=== PATIENT | male | born 1955 | race American Indian/Alaskan Native ===

== ENCOUNTER 2016-09-24 08:34 | Emergency (ER) | payer MEDICAID ==
[2016-09-24 08:57] VITALS: BP 172/98
[2016-09-24] MEDS ORDERED: Albuterol 0.083% 2.5 MG/3 ML Neb Soln NEB ONE ×2 (09:38→10:46)
--- NOTE | 2016-09-24 09:40 | EDM.PDOC ---
ED HISTORY OF PRESENT ILLNESS - General Chief Complaint: Respiratory Problem Stated Complaint: BAD CHEST COLD Time Seen by Provider: 09/24/16 09:05 Source: Reports: Patient History Limitations: Reports: No limitations - History of Present Illness INITIAL COMMENTS - FREE TEXT/NARRATIVE: pt arrived stating he has not been able to rest at nite. He is coughing markedly. He feels like he has a very tight cough. Timing/Duration: Reports: Day(s):, Getting worse Severity: moderate Location, General: Reports: chest, other (Pt has known copd. ) Associated Symptoms: Reports: chest pain, cough, shortness of breath - Related Data Allergies/ADRs: Allergies Allergy/AdvReac Type Severity Reaction Status Date / Time No Known Allergies Allergy Verified 09/24/16 09:02 Home Meds: Home Meds Albuterol [Ventolin HFA] 1 - 2 puff INH ASDIRECTED PRN 09/23/14 [History] Insulin Aspart [NovoLOG] 20 unit SQ TID 09/23/14 [History] Insulin Detemir [Levemir] 60 units SQ BID 09/23/14 [History] Sertraline HCl [Zoloft] 300 mg PO DAILY 09/23/14 [History] Tiotropium [Spiriva HandiHaler] 1 tab INH DAILY 09/23/14 [History] Aspirin [Low Dose Aspirin EC] 81 mg PO DAILY 01/11/15 [History] Clopidogrel [Plavix] 75 mg PO DAILY 01/11/15 [History] Fenofibrate Nanocrystallized [Tricor] 96 mg PO DAILY 01/11/15 [History] LORazepam [Ativan] 1 mg PO TID 01/11/15 [History] Lisinopril 5 mg PO DAILY 01/11/15 [History] Metoprolol Tartrate 50 mg PO BID 01/11/15 [History] QUEtiapine [SEROquel] 100 mg PO BEDTIME 01/11/15 [History] atorvaSTATin [Lipitor] 80 mg PO BEDTIME 01/11/15 [History] Sucralfate [Carafate] 1 g PO QID #120 tablet 06/27/15 [Rx] Omeprazole 40 mg PO BID 12/21/15 [History] amLODIPine [Norvasc] 5 mg PO DAILY 12/21/15 [History] Furosemide [Furosemide] 20 mg PO DAILY 04/24/16 [History] Nitroglycerin [Nitrostat] 0.4 mg PO ASDIRECTED PRN 04/24/16 [History] Ondansetron [Zofran ODT] 8 mg PO ASDIRECTED PRN 04/24/16 [History] Tamsulosin [Flomax] 0.4 mg PO DAILY 04/24/16 [History] Dulaglutide [Trulicity] 0.75 mg SQ WEEKLY 06/12/16 [History] ARIPiprazole [Abilify] 1 tab PO DAILY 08/10/16 [History] Cyclobenzaprine [Flexeril] 10 mg PO TID PRN 08/10/16 [History] Ergocalciferol (Vitamin D2) [Vitamin D2] 50,000 units PO ASDIRECTED 08/10/16 [ History] Trolamine Salicylate/Aloe Vera [Aspercreme 10%] 1 applic TOP ASDIRECTED PRN [History] Past Medical History Cardiovascular History: Reports: CAD, High cholesterol, Hypertension, [place], Other (see below) Other Cardiovascular History: stents placed Respiratory History: Reports: COPD, Pneumonia, recurrent, Other (see below) Other Respiratory History: emphysema, sob with exertion Gastrointestinal History: Reports: Chronic diarrhea, PUD Genitourinary History: Reports: Prostate disorder Other Genitourinary History: prostate cancer Musculoskeletal History: Reports: Back pain, chronic, Osteoarthritis Neurological History: Reports: Other (see below) Other Neuro History: [place] palsy Psychiatric History: Reports: Anxiety, Depression Endocrine/Metabolic History: Reports: Diabetes, type II, IDDM, Obesity/BMI 30+ Oncologic (Cancer) History: Reports: Prostate - Infectious Disease History Infectious Disease History: Reports: Chicken pox Other Infectious Disease History: unknown to patient - Past Surgical History Cardiovascular Surgical History: Reports: Coronary artery stent GI Surgical History: Reports: Cholecystectomy, Colonoscopy, EGD Oncologic Surgical History: Reports: Other (see below) Other Oncologic Surgeries/Procedures: radiated prostate cancer, states it was gone, but now back Social & Family History - Family History Cardiac: Reports: High cholesterol, Hypertension, Other (see below) Other Cardiac Family History: Heart Disease Respiratory: Reports: COPD Neurological: Reports: CVA Psychiatric: Reports: Depression Endocrine/Metabolic: Reports: Diabetes, type II Oncologic: Reports: Pancreatic, Renal - Tobacco Use Smoking Status *Q: Former Smoker Years of Tobacco use: 48 Used Tobacco, but Quit: Yes Month Tobacco Last Used: 1 year ago Second Hand Smoke Exposure: No - Caffeine Use Caffeine Use: Reports: Coffee - Alcohol Use Days Per Week of Alcohol Use: 0 - Recreational Drug Use Recreational Drug Use: No ED ROS GENERAL - Review of Systems Review Of Systems: See Below Constitutional: Reports: fever, diaphoresis, other (pt is sweaty when he gets up in the am. ) HEENT: Reports: No symptoms Respiratory: Reports: shortness of breath, wheezing, cough Cardiovascular: Reports: No symptoms Endocrine: Reports: no symptoms GI/Abdominal: Reports: No symptoms : Reports: no symptoms ED EXAM, GENERAL - Physical Exam Exam: See Below Free Text/Narrative:: Pt arrived with a marked cough and he feels sob and wheezy. Exam Limited By: No limitations General Appearance: alert, mild distress Ears: normal TMs Nose: normal inspection Throat/Mouth: Normal inspection Head: atraumatic Respiratory/Chest: decreased breath sounds, wheezing Cardiovascular: regular rate, rhythm GI/Abdominal: soft, non tender Rectal (Males) Exam: Deferred Back Exam: normal inspection Extremities: normal inspection Neurological: alert, oriented, normal cognition Psychiatric: anxious Course - Vital Signs Last Recorded V/S: Last Vital Signs Temp 36.7 C 09/24/16 09:01 Pulse 90 09/24/16 09:01 Resp 30 H 09/24/16 09:01 BP 172/98 H 09/24/16 09:01 Pulse Ox 95 09/24/16 09:01 - Orders/Labs/Meds Orders: Active Orders 24 hr Category Date Time Status RT Aerosol Therapy [RC] ASDIRECTED Care 09/24/16 09:39 Active RT Aerosol Therapy [RC] ASDIRECTED Care 09/24/16 10:46 Ordered Albuterol [Proventil Neb Soln] Med 09/24/16 10:46 Once 2.5 mg NEB ONETIME ONE Labs: Laboratory Tests 09/24/16 09/24/16 09/24/16 Range/Units 09:39 09:42 09:42 WBC 13.2 H (4.5-11.0) K/uL RBC 5.20 (4.30-5.90) M/uL Hgb 13.7 (12.0-15.0) g/dL Hct 42.4 (40.0-54.0) % MCV 82 (80-98) fL MCH 26 L (27-31) pg MCHC 32 (32-36) % Plt Count 315 (150-400) K/uL Neut % (Auto) 66 (36-66) % Lymph % (Auto) 24 (24-44) % [place] % (Auto) 5 (2-6) % Eos % (Auto) 5 H (2-4) % Baso % (Auto) 1 (0-1) % Puncture Site Rt radial ABG pH 7.394 (7.350-7.450) ABG pCO2 38.4 (35.0-42.0) mmHg ABG pO2 71.0 L (75.0-100.0) mmHg ABG HCO3 22.9 (22.0-26.0) mmol/L ABG Total CO2 20.3 L (23.0-27.0) mmol/L ABG O2 Saturation 93.1 L (95.0-98.0) % ABG O2 Content 17.9 (15.0-23.0) %vol ABG Base Excess -1.1 mm/L ABG Hemoglobin 13.8 (13.5-18.0) g/dL ABG Oxyhemoglobin 91.8 % ABG Carboxyhemoglobin 0.6 (0.0-1.6) % ABG Methemoglobin 0.8 % Raghu Test Passed O2 Delivery Device Room air Oxygen Flow Rate 0 L Sodium 137 L (140-148) mmol/L Potassium 4.9 (3.6-5.2) mmol/L Chloride 103 (100-108) mmol/L Carbon Dioxide 27 (21-32) mmol/L Anion Gap 11.9 (5.0-14.0) mmol/L BUN 19 H (7-18) mg/dL Creatinine 1.4 H (0.8-1.3) mg/dL Est Cr Clr Drug Dosing 56.49 mL/min Estimated GFR (MDRD) 51 L (>60) Glucose 218 H (74-106) mg/dL Calcium 8.7 (8.5-10.1) mg/dL Total Bilirubin 0.3 (0.2-1.0) mg/dL AST 23 (15-37) U/L ALT 23 (12-78) U/L Alkaline Phosphatase 68 (46-116) U/L Lxt-F-Fpdnsagkcox Pept (5-125) pg/mL Total Protein 8.5 H (6.4-8.2) g/dL Albumin 4.2 (3.4-5.0) g/dL Globulin 4.3 H (2.3-3.5) g/dL Albumin/Globulin Ratio 1.0 L (1.2-2.2) Urine Color Urine Appearance Urine pH (4.5-8.0) Ur Specific [place] (1.008-1.030) Urine Protein (NEGATIVE) mg/dL Urine Glucose (UA) (NEGATIVE) mg/dL Urine Ketones (NEGATIVE) mg/dL Urine Occult Blood (NEGATIVE) Urine Nitrite (NEGAITVE) Urine Bilirubin (NEGATIVE) Urine Urobilinogen (NORMAL) mg/dL Ur Leukocyte Esterase (NEGATIVE) Urine RBC (0-5) Urine WBC (0-5) Ur Epithelial Cells Amorphous Sediment Urine Bacteria Urine Mucus 09/24/16 09/24/16 Range/Units 09:42 09:56 WBC (4.5-11.0) K/uL RBC (4.30-5.90) M/uL Hgb (12.0-15.0) g/dL Hct (40.0-54.0) % MCV (80-98) fL MCH (27-31) pg MCHC (32-36) % Plt Count (150-400) K/uL Neut % (Auto) (36-66) % Lymph % (Auto) (24-44) % Rosebud % (Auto) (2-6) % Eos % (Auto) (2-4) % Baso % (Auto) (0-1) % Puncture Site ABG pH (7.350-7.450) ABG pCO2 (35.0-42.0) mmHg ABG pO2 (75.0-100.0) mmHg ABG HCO3 (22.0-26.0) mmol/L ABG Total CO2 (23.0-27.0) mmol/L ABG O2 Saturation (95.0-98.0) % ABG O2 Content (15.0-23.0) %vol ABG Base Excess mm/L ABG Hemoglobin (13.5-18.0) g/dL ABG Oxyhemoglobin % ABG Carboxyhemoglobin (0.0-1.6) % ABG Methemoglobin % Raghu Test O2 Delivery Device Oxygen Flow Rate L Sodium (140-148) mmol/L Potassium (3.6-5.2) mmol/L Chloride (100-108) mmol/L Carbon Dioxide (21-32) mmol/L Anion Gap (5.0-14.0) mmol/L BUN (7-18) mg/dL Creatinine (0.8-1.3) mg/dL Est Cr Clr Drug Dosing mL/min Estimated GFR (MDRD) (>60) Glucose (74-106) mg/dL Calcium (8.5-10.1) mg/dL Total Bilirubin (0.2-1.0) mg/dL AST (15-37) U/L ALT (12-78) U/L Alkaline Phosphatase (46-116) U/L [id number] Pept 61 (5-125) pg/mL Total Protein (6.4-8.2) g/dL Albumin (3.4-5.0) g/dL Globulin (2.3-3.5) g/dL Albumin/Globulin Ratio (1.2-2.2) Urine Color Yellow Urine Appearance Clear Urine pH 7.0 (4.5-8.0) Ur Specific [place] 1.010 (1.008-1.030) Urine Protein Negative (NEGATIVE) mg/dL Urine Glucose (UA) 100 H (NEGATIVE) mg/dL Urine Ketones Negative (NEGATIVE) mg/dL Urine Occult Blood Negative (NEGATIVE) Urine Nitrite Negative (NEGAITVE) Urine Bilirubin Negative (NEGATIVE) Urine Urobilinogen Normal (NORMAL) mg/dL Ur Leukocyte Esterase Negative (NEGATIVE) Urine RBC 0-5 (0-5) Urine WBC 0-5 (0-5) Ur Epithelial Cells Not seen Amorphous Sediment Rare Urine Bacteria Not seen Urine Mucus Not seen Meds: Medications Discontinued Medications Generic Name Dose Route Start Last Admin Trade Name Freq PRN Reason Stop Dose Admin Albuterol 2.5 mg 09/24/16 09:38 09/24/16 10:28 Proventil Neb Soln NEB 09/24/16 09:39 2.5 mg ONETIME ONE Administration - Re-Assessments/Exams Free Text/Narrative Re-Assessment/Exam: 09/24/16 10:52 chest xray does not show a infiltrate. His wbc is mildly elevated. Departure - Departure Time of Disposition: 10:52 Disposition: Home, Self-Care 01 Condition: fair Clinical Impression: Bronchitis, COPD exacerbation, Prostate CA Forms: ED Department Discharge Care Plan Goals: keep appt at [facility], albuterol inhaler with a short maxillofacial prosthetics dentist 2 puffs qid, push fluids, zithromax, robitussin ac 2 tsp at bedtime for eest and to suppress the cough. - My Orders Last 24 Hours: My Active Orders 09/24/16 09:39 RT Aerosol Therapy [RC] ASDIRECTED 09/24/16 10:46 RT Aerosol Therapy [RC] ASDIRECTED Albuterol [Proventil Neb Soln] 2.5 mg NEB ONETIME ONE - Assessment/Plan Last 24 Hours: My Active Orders 09/24/16 09:39 RT Aerosol Therapy [RC] ASDIRECTED 09/24/16 10:46 RT Aerosol Therapy [RC] ASDIRECTED Albuterol [Proventil Neb Soln] 2.5 mg NEB ONETIME ONE
--- NOTE | 2016-09-24 10:12 | CR ---
Two-view chest Comparison: November 2011. Findings: The heart and vascular structures are stable in appearance. There are no infiltrates or ef fusions. There are chronic degenerative findings throughout the thoracic spine. Impression: 1. Stable exam. No acute findings.
== END 2016-09-24 11:46 | disposition home or self-care (01) ==
LOC: JP.ED 08:34
DX: J40 Bronchitis, not specified as acute or chronic (principal); J44.1 Chronic obstructive pulmonary disease with (acute) exacerbation; E11.9 Type 2 diabetes mellitus without complications; I11.9 Hypertensive heart disease without heart failure; Z79.84 Long term (current) use of oral hypoglycemic drugs; Z79.82 Long term (current) use of aspirin; Z79.899 Other long term (current) drug therapy
CPT/HCPCS: 36415; 36600; 71020; 71020-26; 80053; 81001; 82803; 83880; 85025; 99284

== ENCOUNTER 2016-10-20 17:33 | Emergency (ER) | payer MEDICAID ==
[2016-10-20 18:01] VITALS: BP 110/45
--- NOTE | 2016-10-20 18:32 | EDM.PDOC ---
ED HPI NEURO - General Chief Complaint: Neurological Problem Stated Complaint: eval Time Seen by Provider: 10/20/16 18:05 Source: Reports: Patient History Limitations: Reports: No limitations - History of Present Illness INITIAL COMMENTS - FREE TEXT/NARRATIVE: History of present illness: [This 61-year-old male was brought in by law enforcement after he was observed to be driving erratically. He has a history of diabetes and so the thought perhaps his blood sugar was low. He has not been drinking. He states that the reason he drives erratically is because he has a car that is very sensitive stearing. He is scheduled for a sleep study here [facility] at 8 PM and he is anxious to get ready for that. He does not feel that he has any reason to be in the emergency room but he does cooperate with law enforcement and coming over. Denies any chest pain denies any significant shortness of breath denies any sleepiness at this time. He denies ever falling asleep while driving. He has inhalers that he uses and has used today. He also uses insulin and used it this morning. He may not keep anything this evening and if he doesn't he will not be using any insulin. His blood sugar on arrival was 192] Review of systems: As per history of present illness and below otherwise all systems reviewed and negative. Past medical history: As per history of present illness and as reviewed below otherwise noncontributory. Surgical history: As per history of present illness and as reviewed below otherwise noncontributory. Social history: No reported history of drug or alcohol abuse. Family history: As per history of present illness and as reviewed below otherwise noncontributory. Physical exam: HEENT: Atraumatic, normocephalic, pupils reactive, negative for conjunctival pallor or scleral icterus, mucous membranes moist, throat clear, neck supple, nontender, trachea midline. Lungs: Clear to auscultation, breath sounds equal bilaterally, Heart: S1S2, regular, negative for clicks, rubs, or JVD. Abdomen: Soft, nondistended, nontender. Negative for masses or hepatosplenomegaly. Negative for costovertebral tenderness. Pelvis: Stable nontender. Genitourinary: Deferred. Rectal: Deferred. Extremities: Atraumatic, negative for cords or calf pain. Neurovascular unremarkable. Neuro: Awake, alert, oriented. Cranial nerves II through XII unremarkable. Cerebellum unremarkable. Motor and sensory unremarkable throughout. Exam nonfocal. Diagnostics: [] Therapeutics: [] Impression: [Erratic driving with apparently no organic reason for it at this time] Plan: [He is discharged and will get ready for a sleep study.] Definitive disposition and diagnosis as appropriate pending reevaluation and review of above. - Related Data Allergies/ADRs: Allergies Allergy/AdvReac Type Severity Reaction Status Date / Time No Known Allergies Allergy Verified 10/20/16 17:46 Home Meds: Home Meds Albuterol [Ventolin HFA] 1 - 2 puff INH ASDIRECTED PRN 09/23/14 [History] Insulin Aspart [NovoLOG] 20 unit SQ TID 09/23/14 [History] Insulin Detemir [Levemir] 60 units SQ BID 09/23/14 [History] Sertraline HCl [Zoloft] 300 mg PO DAILY 09/23/14 [History] Tiotropium [Spiriva HandiHaler] 1 tab INH DAILY 09/23/14 [History] Aspirin [Low Dose Aspirin EC] 81 mg PO DAILY 01/11/15 [History] Clopidogrel [Plavix] 75 mg PO DAILY 01/11/15 [History] Fenofibrate Nanocrystallized [Tricor] 96 mg PO DAILY 01/11/15 [History] LORazepam [Ativan] 1 mg PO TID 01/11/15 [History] Lisinopril 5 mg PO DAILY 01/11/15 [History] Metoprolol Tartrate 50 mg PO BID 01/11/15 [History] QUEtiapine [SEROquel] 100 mg PO BEDTIME 01/11/15 [History] atorvaSTATin [Lipitor] 80 mg PO BEDTIME 01/11/15 [History] Sucralfate [Carafate] 1 g PO QID #120 tablet 06/27/15 [Rx] Omeprazole 40 mg PO BID 12/21/15 [History] amLODIPine [Norvasc] 5 mg PO DAILY 12/21/15 [History] Furosemide [Furosemide] 20 mg PO DAILY 04/24/16 [History] Nitroglycerin [Nitrostat] 0.4 mg PO ASDIRECTED PRN 04/24/16 [History] Ondansetron [Zofran ODT] 8 mg PO ASDIRECTED PRN 04/24/16 [History] Tamsulosin [Flomax] 0.4 mg PO DAILY 04/24/16 [History] Dulaglutide [Trulicity] 0.75 mg SQ WEEKLY 06/12/16 [History] ARIPiprazole [Abilify] 1 tab PO DAILY 08/10/16 [History] Cyclobenzaprine [Flexeril] 10 mg PO TID PRN 08/10/16 [History] Ergocalciferol (Vitamin D2) [Vitamin D2] 50,000 units PO ASDIRECTED 08/10/16 [ History] Trolamine Salicylate/Aloe Vera [Aspercreme 10%] 1 applic TOP ASDIRECTED PRN [History] Past Medical History Cardiovascular History: Reports: CAD, High cholesterol, Hypertension, [place], Other (see below) Other Cardiovascular History: stents placed Respiratory History: Reports: COPD, Pneumonia, recurrent, Other (see below) Other Respiratory History: emphysema, sob with exertion Gastrointestinal History: Reports: Chronic diarrhea, PUD Genitourinary History: Reports: Prostate disorder Other Genitourinary History: prostate cancer Musculoskeletal History: Reports: Back pain, chronic, Osteoarthritis Neurological History: Reports: Other (see below) Other Neuro History: [place] palsy Psychiatric History: Reports: Anxiety, Depression Endocrine/Metabolic History: Reports: Diabetes, type II, IDDM, Obesity/BMI 30+ Oncologic (Cancer) History: Reports: Prostate - Infectious Disease History Infectious Disease History: Reports: Chicken pox Other Infectious Disease History: unknown to patient - Past Surgical History Cardiovascular Surgical History: Reports: Coronary artery stent GI Surgical History: Reports: Cholecystectomy, Colonoscopy, EGD Oncologic Surgical History: Reports: Other (see below) Other Oncologic Surgeries/Procedures: radiated prostate cancer, states it was gone, but now back Social & Family History - Family History Cardiac: Reports: High cholesterol, Hypertension, Other (see below) Other Cardiac Family History: Heart Disease Respiratory: Reports: COPD Neurological: Reports: CVA Psychiatric: Reports: Depression Endocrine/Metabolic: Reports: Diabetes, type II Oncologic: Reports: Pancreatic, Renal - Tobacco Use Smoking Status *Q: Never Smoker Years of Tobacco use: 48 Used Tobacco, but Quit: Yes Month Tobacco Last Used: 1 year ago Second Hand Smoke Exposure: No - Caffeine Use Caffeine Use: Reports: Coffee - Alcohol Use Days Per Week of Alcohol Use: 0 - Recreational Drug Use Recreational Drug Use: No ED ROS GENERAL - Review of Systems Review Of Systems: ROS reveals no pertinent complaints other than HPI. 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 I hope things go well for you with your sleep study. - My Orders Last 24 Hours: My Active Orders 10/20/16 18:03 Blood Glucose Check, Bedside [RC] ONETIME - Assessment/Plan Last 24 Hours: My Active Orders 10/20/16 18:03 Blood Glucose Check, Bedside [RC] ONETIME
== END 2016-10-20 20:09 | disposition home or self-care (01) ==
LOC: JP.ED 17:33
DX: Z02.89 Encounter for other administrative examinations (principal); I25.2 Old myocardial infarction; I25.10 Atherosclerotic heart disease of native coronary artery without angina pectoris; I10 Essential (primary) hypertension; E78.00 Pure hypercholesterolemia, unspecified; J44.9 Chronic obstructive pulmonary disease, unspecified; F41.9 Anxiety disorder, unspecified; F32.9 Major depressive disorder, single episode, unspecified; E11.9 Type 2 diabetes mellitus without complications; E66.9 Obesity, unspecified; Z68.41 Body mass index [BMI] 40.0-44.9, adult; Z95.5 Presence of coronary angioplasty implant and graft; Z90.49 Acquired absence of other specified parts of digestive tract; Z98.890 Other specified postprocedural states; Z85.46 Personal history of malignant neoplasm of prostate; Z79.02 Long term (current) use of antithrombotics/antiplatelets; Z79.82 Long term (current) use of aspirin; Z79.4 Long term (current) use of insulin; Z79.899 Other long term (current) drug therapy
CPT/HCPCS: 99284

== ENCOUNTER 2016-11-09 03:43 | Emergency (ER) | payer MEDICAID ==
--- NOTE | 2016-11-09 04:16 | EDM.PDOC ---
ED HPI Behavioral Health - General Chief Complaint: Neurological Problem Stated Complaint: [facility] Time Seen by Provider: 11/09/16 04:14 Source: Reports: Patient, EMS Exam Limitations: Reports: No limitations - History of Present Illness INITIAL COMMENTS - FREE TEXT/NARRATIVE: ems was called because the pt was acting strange and not able to follow directions. The pt would answer questions with the ambulance but he would loose his thought pattern. Onset of Symptoms: Reports: gradual Duration of Symptoms: Reports: Hour(s):, Other (t seemed much worse tonight. ) Associated Symptoms: Reports: anxiety, agitation, decreased concentration - Related Data Allergies Allergy/AdvReac Type Severity Reaction Status Date / Time No Known Allergies Allergy Verified 10/20/16 17:46 Home Medications: Home Meds Albuterol [Ventolin HFA] 1 - 2 puff INH ASDIRECTED PRN 09/23/14 [History] Insulin Aspart [NovoLOG] 20 unit SQ TID 09/23/14 [History] Insulin Detemir [Levemir] 60 units SQ BID 09/23/14 [History] Sertraline HCl [Zoloft] 300 mg PO DAILY 09/23/14 [History] Tiotropium [Spiriva HandiHaler] 1 tab INH DAILY 09/23/14 [History] Aspirin [Low Dose Aspirin EC] 81 mg PO DAILY 01/11/15 [History] Clopidogrel [Plavix] 75 mg PO DAILY 01/11/15 [History] Fenofibrate Nanocrystallized [Tricor] 96 mg PO DAILY 01/11/15 [History] LORazepam [Ativan] 1 mg PO TID PRN 01/11/15 [History] Lisinopril 5 mg PO DAILY 01/11/15 [History] Metoprolol Tartrate 50 mg PO BID 01/11/15 [History] QUEtiapine [SEROquel] 100 mg PO TID PRN 01/11/15 [History] atorvaSTATin [Lipitor] 80 mg PO BEDTIME 01/11/15 [History] Sucralfate [Carafate] 1 g PO QID #120 tablet 06/27/15 [Rx] amLODIPine [Norvasc] 5 mg PO DAILY 12/21/15 [History] Furosemide [Furosemide] 20 mg PO DAILY 04/24/16 [History] Nitroglycerin [Nitrostat] 0.4 mg PO ASDIRECTED PRN 04/24/16 [History] Ondansetron [Zofran ODT] 8 mg PO ASDIRECTED PRN 04/24/16 [History] Tamsulosin [Flomax] 0.4 mg PO DAILY 04/24/16 [History] Dulaglutide [Trulicity] 0.75 mg SQ WEEKLY 06/12/16 [History] Cyclobenzaprine [Flexeril] 10 mg PO TID PRN 08/10/16 [History] Ergocalciferol (Vitamin D2) [Vitamin D2] 50,000 units PO ASDIRECTED 08/10/16 [ History] Trolamine Salicylate/Aloe Vera [Aspercreme 10%] 1 applic TOP ASDIRECTED PRN [History] ARIPiprazole [Abilify] 5 mg PO DAILY 11/09/16 [History] Diclofenac Potassium [Cataflam] 50 mg PO ONETIME PRN 11/09/16 [History] Pantoprazole [ProTONIX] 40 mg PO ACBREAKFAST 11/09/16 [History] guaiFENesin [Guaifenesin] 400 mg PO Q8HR PRN 11/09/16 [History] Past Medical History HEENT History: Reports: Hard of hearing Cardiovascular History: Reports: CAD, High cholesterol, Hypertension, [place], Other (see below) Other Cardiovascular History: stents placed Respiratory History: Reports: COPD, Pneumonia, recurrent, Other (see below) Other Respiratory History: emphysema, sob with exertion Gastrointestinal History: Reports: Chronic diarrhea, PUD Genitourinary History: Reports: Prostate disorder Other Genitourinary History: prostate cancer Musculoskeletal History: Reports: Back pain, chronic, Osteoarthritis Neurological History: Reports: Other (see below) Other Neuro History: [place] palsy Psychiatric History: Reports: Anxiety, Depression Endocrine/Metabolic History: Reports: Diabetes, type II, IDDM, Obesity/BMI 30+ Oncologic (Cancer) History: Reports: Prostate - Infectious Disease History Infectious Disease History: Reports: Chicken pox, Measles Other Infectious Disease History: unknown to patient - Past Surgical History Cardiovascular Surgical History: Reports: Coronary artery stent GI Surgical History: Reports: Appendectomy, Cholecystectomy, Colonoscopy, EGD Oncologic Surgical History: Reports: Other (see below) Other Oncologic Surgeries/Procedures: radiated prostate cancer, states it was gone, but now back Social & Family History - Family History Family Medical History: Unobtainable Cardiac: Reports: High cholesterol, Hypertension, Other (see below) Other Cardiac Family History: Heart Disease Respiratory: Reports: COPD Neurological: Reports: CVA Psychiatric: Reports: Depression Endocrine/Metabolic: Reports: Diabetes, type II Oncologic: Reports: Pancreatic, Renal - Tobacco Use Smoking Status *Q: Never Smoker Years of Tobacco use: 48 Used Tobacco, but Quit: Yes Month Tobacco Last Used: 1 year ago Second Hand Smoke Exposure: No - Caffeine Use Caffeine Use: Reports: Coffee - Alcohol Use Days Per Week of Alcohol Use: 0 - Recreational Drug Use Recreational Drug Use: No ED ROS GENERAL - Review of Systems Review Of Systems: See Below Constitutional: Reports: no symptoms HEENT: Reports: No symptoms Respiratory: Reports: Shortness of Breath Cardiovascular: Reports: No symptoms Endocrine: Reports: no symptoms GI/Abdominal: Reports: No symptoms : Reports: no symptoms Musculoskeletal: Reports: no symptoms ED EXAM, BEHAVIORAL HEALTH - Physical Exam Exam: See Below Text/Narrative:: Pt was brought from home because of erradic behavior. He seemed confused at times. He has a istory of prostate Ca. He does not describe any specfic pain. He seemed quite agitated. He denies using anything other than his regular meds. Exam Limited By: Altered mental status General Appearance: alert, other ( confused at times. ) Ears: normal TMs Nose: normal inspection Throat/Mouth: Normal inspection Head: atraumatic Neck: normal inspection Respiratory/Chest: no respiratory distress Cardiovascular: regular rate, rhythm GI/Abdominal: soft, non tender (Male) Exam: Other (pt has a history of prostate ca. ) Rectal (Males) Exam: Deferred Back Exam: normal inspection Extremities: normal inspection Neurological: alert, other (Pt does know where he is but then he starts talking to himself and he is not making any sense.) Psychiatric: restless, agitated, inattentive COURSE, BEHAVIORAL HEALTH COMP - Course Vital Signs: Last Vital Signs Temp 37.4 C 11/09/16 03:51 Pulse 84 11/09/16 04:05 Resp 14 11/09/16 04:05 BP 116/95 H 11/09/16 04:05 Pulse Ox 98 11/09/16 04:05 Orders, Labs, Meds: Active Orders 24 hr Category Date Time Status Head wo Cont [CT] Stat Exams 11/09/16 03:50 Taken Sodium Chloride 0.9% [Normal Saline] 1,000 ml Med 11/09/16 05:30 Active IV ASDIRECTED Medication Orders Sodium Chloride (Normal Saline) 1,000 mls @ 400 mls/hr IV ASDIRECTED ELI Last Admin: 11/09/16 05:35 Dose: 400 mls/hr Laboratory Tests 11/09/16 11/09/16 11/09/16 Range/Units 04:01 04:01 04:01 WBC 13.1 H (4.5-11.0) K/uL RBC 5.15 (4.30-5.90) M/uL Hgb 13.6 (12.0-15.0) g/dL Hct 41.3 (40.0-54.0) % MCV 80 (80-98) fL MCH 26 L (27-31) pg MCHC 33 (32-36) % Plt Count 287 (150-400) K/uL Neut % (Auto) 63 (36-66) % Lymph % (Auto) 26 (24-44) % [place] % (Auto) 6 (2-6) % Eos % (Auto) 5 H (2-4) % Baso % (Auto) 1 (0-1) % ESR (0-20) mm/hr Puncture Site ABG pH (7.350-7.450) ABG pCO2 (35.0-42.0) mmHg ABG pO2 (75.0-100.0) mmHg ABG HCO3 (22.0-26.0) mmol/L ABG Total CO2 (23.0-27.0) mmol/L ABG O2 Saturation (95.0-98.0) % ABG O2 Content (15.0-23.0) %vol ABG Base Excess mm/L ABG Hemoglobin (13.5-18.0) g/dL ABG Oxyhemoglobin % ABG Carboxyhemoglobin (0.0-1.6) % ABG Methemoglobin % Raghu Test O2 Delivery Device Sodium 140 (140-148) mmol/L Potassium 4.5 (3.6-5.2) mmol/L Chloride 104 (100-108) mmol/L Carbon Dioxide 27 (21-32) mmol/L Anion Gap 8.7 (5.0-14.0) mmol/L BUN 21 H (7-18) mg/dL Creatinine 1.4 H (0.8-1.3) mg/dL Est Cr Clr Drug Dosing 56.63 mL/min Estimated GFR (MDRD) 51 L (>60) Glucose 237 H (74-106) mg/dL Calcium 8.8 (8.5-10.1) mg/dL Total Bilirubin 0.2 (0.2-1.0) mg/dL AST 23 (15-37) U/L ALT 30 (12-78) U/L Alkaline Phosphatase 114 (46-116) U/L Total Protein 8.0 (6.4-8.2) g/dL Albumin 4.0 (3.4-5.0) g/dL Globulin 4.0 H (2.3-3.5) g/dL Albumin/Globulin Ratio 1.0 L (1.2-2.2) PSA Screen (0.0-4.0) ug/L Urine Color Urine Appearance Urine pH (4.5-8.0) Ur Specific [place] (1.008-1.030) Urine Protein (NEGATIVE) mg/dL Urine Glucose (UA) (NEGATIVE) mg/dL Urine Ketones (NEGATIVE) mg/dL Urine Occult Blood (NEGATIVE) Urine Nitrite (NEGAITVE) Urine Bilirubin (NEGATIVE) Urine Urobilinogen (NORMAL) mg/dL Ur Leukocyte Esterase (NEGATIVE) Urine RBC (0-5) Urine WBC (0-5) Ur Epithelial Cells Amorphous Sediment Urine Bacteria Urine Mucus Urine Opiates Screen (NEGATIVE) Ur Oxycodone Screen (NEGATIVE) Urine Methadone Screen (NEGATIVE) Ur Propoxyphene Screen (NEGATIVE) Ur Barbiturates Screen (NEGATIVE) Ur Tricyclics Screen (NEGATIVE) Ur Phencyclidine Scrn (NEGATIVE) Ur Amphetamine Screen (NEGATIVE) U Methamphetamines Scrn (NEGATIVE) Urine MDMA Screen (NEGATIVE) U Benzodiazepines Scrn (NEGATIVE) U Cocaine Metab Screen (NEGATIVE) U Marijuana (THC) Screen (NEGATIVE) Ethyl Alcohol < 3 mg/dL 11/09/16 11/09/16 11/09/16 Range/Units 04:03 04:05 04:06 WBC (4.5-11.0) K/uL RBC (4.30-5.90) M/uL Hgb (12.0-15.0) g/dL Hct (40.0-54.0) % MCV (80-98) fL MCH (27-31) pg MCHC (32-36) % Plt Count (150-400) K/uL Neut % (Auto) (36-66) % Lymph % (Auto) (24-44) % [place] % (Auto) (2-6) % Eos % (Auto) (2-4) % Baso % (Auto) (0-1) % ESR 18 (0-20) mm/hr Puncture Site Lt radial ABG pH 7.437 (7.350-7.450) ABG pCO2 33.8 L (35.0-42.0) mmHg ABG pO2 82.1 (75.0-100.0) mmHg ABG HCO3 22.4 (22.0-26.0) mmol/L ABG Total CO2 19.8 L (23.0-27.0) mmol/L ABG O2 Saturation 96.0 (95.0-98.0) % ABG O2 Content 17.8 (15.0-23.0) %vol ABG Base Excess -0.7 mm/L ABG Hemoglobin 13.4 L (13.5-18.0) g/dL ABG Oxyhemoglobin 94.3 % ABG Carboxyhemoglobin 0.9 (0.0-1.6) % ABG Methemoglobin 0.9 % Raghu Test Passed O2 Delivery Device Room air Sodium (140-148) mmol/L Potassium (3.6-5.2) mmol/L Chloride (100-108) mmol/L Carbon Dioxide (21-32) mmol/L Anion Gap (5.0-14.0) mmol/L BUN (7-18) mg/dL Creatinine (0.8-1.3) mg/dL Est Cr Clr Drug Dosing mL/min Estimated GFR (MDRD) (>60) Glucose (74-106) mg/dL Calcium (8.5-10.1) mg/dL Total Bilirubin (0.2-1.0) mg/dL AST (15-37) U/L ALT (12-78) U/L Alkaline Phosphatase (46-116) U/L Total Protein (6.4-8.2) g/dL Albumin (3.4-5.0) g/dL Globulin (2.3-3.5) g/dL Albumin/Globulin Ratio (1.2-2.2) PSA Screen 9.0 H (0.0-4.0) ug/L Urine Color Urine Appearance Urine pH (4.5-8.0) Ur Specific [place] (1.008-1.030) Urine Protein (NEGATIVE) mg/dL Urine Glucose (UA) (NEGATIVE) mg/dL Urine Ketones (NEGATIVE) mg/dL Urine Occult Blood (NEGATIVE) Urine Nitrite (NEGAITVE) Urine Bilirubin (NEGATIVE) Urine Urobilinogen (NORMAL) mg/dL Ur Leukocyte Esterase (NEGATIVE) Urine RBC (0-5) Urine WBC (0-5) Ur Epithelial Cells Amorphous Sediment Urine Bacteria Urine Mucus Urine Opiates Screen (NEGATIVE) Ur Oxycodone Screen (NEGATIVE) Urine Methadone Screen (NEGATIVE) Ur Propoxyphene Screen (NEGATIVE) Ur Barbiturates Screen (NEGATIVE) Ur Tricyclics Screen (NEGATIVE) Ur Phencyclidine Scrn (NEGATIVE) Ur Amphetamine Screen (NEGATIVE) U Methamphetamines Scrn (NEGATIVE) Urine MDMA Screen (NEGATIVE) U Benzodiazepines Scrn (NEGATIVE) U Cocaine Metab Screen (NEGATIVE) U Marijuana (THC) Screen (NEGATIVE) Ethyl Alcohol mg/dL 11/09/16 11/09/16 Range/Units 04:50 05:27 WBC (4.5-11.0) K/uL RBC (4.30-5.90) M/uL Hgb (12.0-15.0) g/dL Hct (40.0-54.0) % MCV (80-98) fL MCH (27-31) pg MCHC (32-36) % Plt Count (150-400) K/uL Neut % (Auto) (36-66) % Lymph % (Auto) (24-44) % [place] % (Auto) (2-6) % Eos % (Auto) (2-4) % Baso % (Auto) (0-1) % ESR (0-20) mm/hr Puncture Site ABG pH (7.350-7.450) ABG pCO2 (35.0-42.0) mmHg ABG pO2 (75.0-100.0) mmHg ABG HCO3 (22.0-26.0) mmol/L ABG Total CO2 (23.0-27.0) mmol/L ABG O2 Saturation (95.0-98.0) % ABG O2 Content (15.0-23.0) %vol ABG Base Excess mm/L ABG Hemoglobin (13.5-18.0) g/dL ABG Oxyhemoglobin % ABG Carboxyhemoglobin (0.0-1.6) % ABG Methemoglobin % Raghu Test O2 Delivery Device Sodium (140-148) mmol/L Potassium (3.6-5.2) mmol/L Chloride (100-108) mmol/L Carbon Dioxide (21-32) mmol/L Anion Gap (5.0-14.0) mmol/L BUN (7-18) mg/dL Creatinine (0.8-1.3) mg/dL Est Cr Clr Drug Dosing mL/min Estimated GFR (MDRD) (>60) Glucose (74-106) mg/dL Calcium (8.5-10.1) mg/dL Total Bilirubin (0.2-1.0) mg/dL AST (15-37) U/L ALT (12-78) U/L Alkaline Phosphatase (46-116) U/L Total Protein (6.4-8.2) g/dL Albumin (3.4-5.0) g/dL Globulin (2.3-3.5) g/dL Albumin/Globulin Ratio (1.2-2.2) PSA Screen (0.0-4.0) ug/L Urine Color Yellow Urine Appearance Slightly cloudy Urine pH 5.0 (4.5-8.0) Ur Specific [place] 1.020 (1.008-1.030) Urine Protein Negative (NEGATIVE) mg/dL Urine Glucose (UA) 50 H (NEGATIVE) mg/dL Urine Ketones Negative (NEGATIVE) mg/dL Urine Occult Blood Negative (NEGATIVE) Urine Nitrite Negative (NEGAITVE) Urine Bilirubin Negative (NEGATIVE) Urine Urobilinogen Normal (NORMAL) mg/dL Ur Leukocyte Esterase Negative (NEGATIVE) Urine RBC 0-5 (0-5) Urine WBC 0-5 (0-5) Ur Epithelial Cells Not seen Amorphous Sediment Not seen Urine Bacteria Not seen Urine Mucus Not seen Urine Opiates Screen Negative (NEGATIVE) Ur Oxycodone Screen Negative (NEGATIVE) Urine Methadone Screen Negative (NEGATIVE) Ur Propoxyphene Screen Negative (NEGATIVE) Ur Barbiturates Screen Negative (NEGATIVE) Ur Tricyclics Screen Negative (NEGATIVE) Ur Phencyclidine Scrn Negative (NEGATIVE) Ur Amphetamine Screen Negative (NEGATIVE) U Methamphetamines Scrn Negative (NEGATIVE) Urine MDMA Screen Negative (NEGATIVE) U Benzodiazepines Scrn Negative (NEGATIVE) U Cocaine Metab Screen Negative (NEGATIVE) U Marijuana (THC) Screen Negative (NEGATIVE) Ethyl Alcohol mg/dL Medications Generic Name Dose Route Start Last Admin Trade Name Freq PRN Reason Stop Dose Admin Sodium Chloride 1,000 mls @ 400 mls/hr 11/09/16 05:30 11/09/16 05:35 Normal Saline IV 400 mls/hr ASDIRECTED ELI Administration Departure - Departure Time of Disposition: 07:22 Disposition: Home, Self-Care 01 Condition: fair Clinical Impression: Confusion, hx of, without neuro findings, Prostate CA, Diabetes mellitus Forms: ED Department Discharge Care Plan Goals: to the clinic he first of the week to see Vasquez Rodriguez to review meds because of the episodes of comnfusion. - My Orders Last 24 Hours: My Active Orders 11/09/16 03:50 Head wo Cont [CT] Stat 11/09/16 05:30 Sodium Chloride 0.9% [Normal Saline] 1,000 ml IV ASDIRECTED - Assessment/Plan Last 24 Hours: My Active Orders 11/09/16 03:50 Head wo Cont [CT] Stat 11/09/16 05:30 Sodium Chloride 0.9% [Normal Saline] 1,000 ml IV ASDIRECTED
[2016-11-09] MEDS ORDERED: Sodium Chloride 0.9% 1,000 ML IV SCH (05:30)
[2016-11-09 07:23] VITALS: BP 145/77
== END 2016-11-09 09:01 | disposition home or self-care (01) ==
LOC: JP.ED 03:43
DX: R41.0 Disorientation, unspecified (principal); E11.9 Type 2 diabetes mellitus without complications; I25.10 Atherosclerotic heart disease of native coronary artery without angina pectoris; I10 Essential (primary) hypertension; I25.2 Old myocardial infarction; E78.00 Pure hypercholesterolemia, unspecified; F32.9 Major depressive disorder, single episode, unspecified; F41.9 Anxiety disorder, unspecified; J44.9 Chronic obstructive pulmonary disease, unspecified; Z85.46 Personal history of malignant neoplasm of prostate; Z90.49 Acquired absence of other specified parts of digestive tract; Z95.5 Presence of coronary angioplasty implant and graft; Z79.4 Long term (current) use of insulin; Z79.02 Long term (current) use of antithrombotics/antiplatelets; Z79.899 Other long term (current) drug therapy
CPT/HCPCS: 36415; 36600; 70450; 80053; 80305; 81001; 82803; 85025; 85651; 96360; 96361; 99285; G0103; G0480; J7040

== ENCOUNTER 2016-11-28 10:35 | Inpatient (IN) | payer MEDICAID ==
--- NOTE | 2016-11-28 11:06 | EDM.PDOC ---
ED HPI GENERAL MEDICAL PROBLEM - General Chief Complaint: Respiratory Problem Stated Complaint: [facility] Time Seen by Provider: 11/28/16 10:59 Source of Information: Reports: Patient History Limitations: Reports: No Limitations - History of Present Illness INITIAL COMMENTS - FREE TEXT/NARRATIVE: pt arrived feeling sob. he has been in the hosp recently. He has noted this getting worse Onset: gradual Treatments [employer]: Reports: Breathing treatments, EKG, Oxygen Other Treatments [employer]: blood sugar 246 Lower Back Pain Score (Numeric/FACES): 2 - Related Data Allergies Allergy/AdvReac Type Severity Reaction Status Date / Time No Known Allergies Allergy Verified 10/20/16 17:46 Home Meds: Home Meds Albuterol [Ventolin HFA] 1 - 2 puff INH ASDIRECTED PRN 09/23/14 [History] Insulin Aspart [NovoLOG] 20 unit SQ TID 09/23/14 [History] Insulin Detemir [Levemir] 60 units SQ BID 09/23/14 [History] Sertraline HCl [Zoloft] 300 mg PO DAILY 09/23/14 [History] Tiotropium [Spiriva HandiHaler] 1 tab INH DAILY 09/23/14 [History] Aspirin [Low Dose Aspirin EC] 81 mg PO DAILY 01/11/15 [History] Clopidogrel [Plavix] 75 mg PO DAILY 01/11/15 [History] Fenofibrate Nanocrystallized [Tricor] 96 mg PO DAILY 01/11/15 [History] LORazepam [Ativan] 1 mg PO TID PRN 01/11/15 [History] Lisinopril 5 mg PO DAILY 01/11/15 [History] Metoprolol Tartrate 50 mg PO BID 01/11/15 [History] QUEtiapine [SEROquel] 100 mg PO TID PRN 01/11/15 [History] atorvaSTATin [Lipitor] 80 mg PO BEDTIME 01/11/15 [History] Sucralfate [Carafate] 1 g PO QID #120 tablet 06/27/15 [Rx] amLODIPine [Norvasc] 5 mg PO DAILY 12/21/15 [History] Furosemide [Furosemide] 20 mg PO DAILY 04/24/16 [History] Nitroglycerin [Nitrostat] 0.4 mg PO ASDIRECTED PRN 04/24/16 [History] Ondansetron [Zofran ODT] 8 mg PO ASDIRECTED PRN 04/24/16 [History] Tamsulosin [Flomax] 0.4 mg PO DAILY 04/24/16 [History] Dulaglutide [Trulicity] 0.75 mg SQ WEEKLY 06/12/16 [History] Cyclobenzaprine [Flexeril] 10 mg PO TID PRN 08/10/16 [History] Ergocalciferol (Vitamin D2) [Vitamin D2] 50,000 units PO ASDIRECTED 08/10/16 [ History] Trolamine Salicylate/Aloe Vera [Aspercreme 10%] 1 applic TOP ASDIRECTED PRN [History] ARIPiprazole [Abilify] 5 mg PO DAILY 11/09/16 [History] Diclofenac Potassium [Cataflam] 50 mg PO ONETIME PRN 11/09/16 [History] Pantoprazole [ProTONIX] 40 mg PO ACBREAKFAST 11/09/16 [History] guaiFENesin [Guaifenesin] 400 mg PO Q8HR PRN 11/09/16 [History] Past Medical History HEENT History: Reports: Hard of hearing Cardiovascular History: Reports: CAD, High cholesterol, Hypertension, RI, Other (see below) Other Cardiovascular History: stents placed Respiratory History: Reports: COPD, Pneumonia, recurrent, Other (see below) Other Respiratory History: emphysema, sob with exertion Gastrointestinal History: Reports: Chronic diarrhea, PUD Other Gastrointestinal History: Fatty Liver Genitourinary History: Reports: Prostate disorder Other Genitourinary History: prostate cancer Musculoskeletal History: Reports: Back pain, chronic, Osteoarthritis Neurological History: Reports: Other (see below) Other Neuro History: [place] palsy Psychiatric History: Reports: Anxiety, Depression Other Psychiatric History: Grief, Insomnia Endocrine/Metabolic History: Reports: Diabetes, type II, IDDM, Obesity/BMI 30+ Oncologic (Cancer) History: Reports: Prostate - Infectious Disease History Infectious Disease History: Reports: Chicken pox, Measles Other Infectious Disease History: unknown to patient - Past Surgical History GI Surgical History: Reports: Appendectomy, Cholecystectomy, Colonoscopy, EGD Social & Family History - Family History Family Medical History: Unobtainable Cardiac: Reports: High cholesterol, Hypertension, Other (see below) Other Cardiac Family History: Heart Disease Respiratory: Reports: COPD Neurological: Reports: CVA Psychiatric: Reports: Depression Endocrine/Metabolic: Reports: Diabetes, type II Oncologic: Reports: Pancreatic, Renal - Tobacco Use Smoking Status *Q: Never Smoker Years of Tobacco use: 48 Used Tobacco, but Quit: Yes Month Tobacco Last Used: 1 year ago Second Hand Smoke Exposure: No - Caffeine Use Caffeine Use: Reports: Coffee - Alcohol Use Days Per Week of Alcohol Use: 0 - Recreational Drug Use Recreational Drug Use: No ED ROS GENERAL - Review of Systems Review Of Systems: See Below Constitutional: Reports: No Symptoms HEENT: Reports: No Symptoms Respiratory: Reports: Shortness of Breath, Wheezing, Cough Cardiovascular: Reports: No Symptoms Endocrine: Reports: No Symptoms GI/Abdominal: Reports: No Symptoms : Reports: No Symptoms ED EXAM, GENERAL - Physical Exam Exam: See Below Free Text/Narrative:: pt arrived sob and quite wheezy. He had a neb in the ambulance which did help him. He is still sitting in the low 90s. He is not having chest pain. He has had a increased cough recently. He was admitted to [facility] and discharged as a flare of his copd. He was to be on predisone and he is not sure what he has been taking. He did not have his inhalers with him today. He thinks a nebulixer works better for him. Exam Limited By: No Limitations General Appearance: Alert, Mild Distress Ears: Normal TMs Nose: Normal Inspection Throat/Mouth: Normal Inspection Head: Atraumatic Neck: Normal Inspection Respiratory/Chest: Decreased Breath Sounds, Wheezing Cardiovascular: Regular Rate, Rhythm GI/Abdominal: Soft, Non-Tender (Male) Exam: Deferred Rectal (Males) Exam: Deferred Back Exam: Normal Inspection Extremities: Normal Inspection Neurological: Alert, Oriented, Other ( difficult to get a clear history. ) Psychiatric: Normal Affect Course - Vital Signs Last Recorded V/S: Last Vital Signs Temp 37.1 C 11/28/16 10:38 Pulse 79 11/28/16 10:38 Resp 23 H 11/28/16 10:38 BP 168/91 H 11/28/16 10:38 Pulse Ox 94 L 11/28/16 10:38 - Orders/Labs/Meds Orders: Active Orders 24 hr Category Date Time Status RT Aerosol Therapy [RC] ASDIRECTED Care 11/28/16 11:41 Active Sodium Chloride 0.9% [Saline Flush] Med 11/28/16 12:49 Active 10 ml FLUSH ASDIRECTED PRN Saline Lock Insert [OM.PC] Routine Oth 11/28/16 12:49 Ordered Medication Orders Sodium Chloride (Saline Flush) 10 ml FLUSH ASDIRECTED PRN PRN Reason: Keep Vein Open Labs: Laboratory Tests 11/28/16 11/28/16 11/28/16 Range/Units 10:58 11:12 11:12 WBC 13.2 H (4.5-11.0) K/uL RBC 4.92 (4.30-5.90) M/uL Hgb 12.8 (12.0-15.0) g/dL Hct 39.5 L (40.0-54.0) % MCV 80 (80-98) fL MCH 26 L (27-31) pg MCHC 32 (32-36) % Plt Count 210 (150-400) K/uL Add Manual Diff Yes Neutrophils % (Manual) 62 (36-66) % Band Neutrophils % 3 L (5-11) % Lymphocytes % (Manual) 26 (24-44) % Monocytes % (Manual) 6 (2-6) % Eosinophils % (Manual) 3 (2-4) % D-Dimer, Quantitative (0.0-400.0) ng/mL Puncture Site Rt radial ABG pH 7.398 (7.350-7.450) ABG pCO2 39.4 (35.0-42.0) mmHg ABG pO2 90.3 (75.0-100.0) mmHg ABG HCO3 23.8 (22.0-26.0) mmol/L ABG Total CO2 21.3 L (23.0-27.0) mmol/L ABG O2 Saturation 96.7 (95.0-98.0) % ABG O2 Content 17.3 (15.0-23.0) %vol ABG Base Excess -0.3 mm/L ABG Hemoglobin 12.9 L (13.5-18.0) g/dL ABG Oxyhemoglobin 94.6 % ABG Carboxyhemoglobin 1.3 (0.0-1.6) % ABG Methemoglobin 0.9 % Raghu Test Passed O2 Delivery Device Nasal cannula Oxygen Flow Rate 2 L Sodium 142 (140-148) mmol/L Potassium 4.2 (3.6-5.2) mmol/L Chloride 105 (100-108) mmol/L Carbon Dioxide 26 (21-32) mmol/L Anion Gap 11.5 (5.0-14.0) mmol/L BUN 15 (7-18) mg/dL Creatinine 1.0 (0.8-1.3) mg/dL Est Cr Clr Drug Dosing 79.08 mL/min Estimated GFR (MDRD) > 60 (>60) Glucose 185 H (74-106) mg/dL Calcium 8.0 L (8.5-10.1) mg/dL Total Bilirubin 0.5 D (0.2-1.0) mg/dL AST 24 (15-37) U/L ALT 35 (12-78) U/L Alkaline Phosphatase 91 (46-116) U/L Cti-D-Gjgdsrhbwmw Pept (5-125) pg/mL Total Protein 7.3 (6.4-8.2) g/dL Albumin 3.5 (3.4-5.0) g/dL Globulin 3.8 H (2.3-3.5) g/dL Albumin/Globulin Ratio 0.9 L (1.2-2.2) PSA Screen (0.0-4.0) ug/L Urine Color Urine Appearance Urine pH (4.5-8.0) Ur Specific [place] (1.008-1.030) Urine Protein (NEGATIVE) mg/dL Urine Glucose (UA) (NEGATIVE) mg/dL Urine Ketones (NEGATIVE) mg/dL Urine Occult Blood (NEGATIVE) Urine Nitrite (NEGAITVE) Urine Bilirubin (NEGATIVE) Urine Urobilinogen (NORMAL) mg/dL Ur Leukocyte Esterase (NEGATIVE) Urine RBC (0-5) Urine WBC (0-5) Ur Epithelial Cells Amorphous Sediment Urine Bacteria Urine Mucus 11/28/16 11/28/16 11/28/16 Range/Units 11:23 11:23 12:17 WBC (4.5-11.0) K/uL RBC (4.30-5.90) M/uL Hgb (12.0-15.0) g/dL Hct (40.0-54.0) % MCV (80-98) fL MCH (27-31) pg MCHC (32-36) % Plt Count (150-400) K/uL Add Manual Diff Neutrophils % (Manual) (36-66) % Band Neutrophils % (5-11) % Lymphocytes % (Manual) (24-44) % Monocytes % (Manual) (2-6) % Eosinophils % (Manual) (2-4) % D-Dimer, Quantitative 227 (0.0-400.0) ng/mL Puncture Site ABG pH (7.350-7.450) ABG pCO2 (35.0-42.0) mmHg ABG pO2 (75.0-100.0) mmHg ABG HCO3 (22.0-26.0) mmol/L ABG Total CO2 (23.0-27.0) mmol/L ABG O2 Saturation (95.0-98.0) % ABG O2 Content (15.0-23.0) %vol ABG Base Excess mm/L ABG Hemoglobin (13.5-18.0) g/dL ABG Oxyhemoglobin % ABG Carboxyhemoglobin (0.0-1.6) % ABG Methemoglobin % Raghu Test O2 Delivery Device Oxygen Flow Rate L Sodium (140-148) mmol/L Potassium (3.6-5.2) mmol/L Chloride (100-108) mmol/L Carbon Dioxide (21-32) mmol/L Anion Gap (5.0-14.0) mmol/L BUN (7-18) mg/dL Creatinine (0.8-1.3) mg/dL Est Cr Clr Drug Dosing mL/min Estimated GFR (MDRD) (>60) Glucose (74-106) mg/dL Calcium (8.5-10.1) mg/dL Total Bilirubin (0.2-1.0) mg/dL AST (15-37) U/L ALT (12-78) U/L Alkaline Phosphatase (46-116) U/L Esh-L-Ghlogndrbqx Pept 338 H (5-125) pg/mL Total Protein (6.4-8.2) g/dL Albumin (3.4-5.0) g/dL Globulin (2.3-3.5) g/dL Albumin/Globulin Ratio (1.2-2.2) PSA Screen 13.9 H (0.0-4.0) ug/L Urine Color Urine Appearance Urine pH (4.5-8.0) Ur Specific [place] (1.008-1.030) Urine Protein (NEGATIVE) mg/dL Urine Glucose (UA) (NEGATIVE) mg/dL Urine Ketones (NEGATIVE) mg/dL Urine Occult Blood (NEGATIVE) Urine Nitrite (NEGAITVE) Urine Bilirubin (NEGATIVE) Urine Urobilinogen (NORMAL) mg/dL Ur Leukocyte Esterase (NEGATIVE) Urine RBC (0-5) Urine WBC (0-5) Ur Epithelial Cells Amorphous Sediment Urine Bacteria Urine Mucus 11/28/16 Range/Units 12:28 WBC (4.5-11.0) K/uL RBC (4.30-5.90) M/uL Hgb (12.0-15.0) g/dL Hct (40.0-54.0) % MCV (80-98) fL MCH (27-31) pg MCHC (32-36) % Plt Count (150-400) K/uL Add Manual Diff Neutrophils % (Manual) (36-66) % Band Neutrophils % (5-11) % Lymphocytes % (Manual) (24-44) % Monocytes % (Manual) (2-6) % Eosinophils % (Manual) (2-4) % D-Dimer, Quantitative (0.0-400.0) ng/mL Puncture Site ABG pH (7.350-7.450) ABG pCO2 (35.0-42.0) mmHg ABG pO2 (75.0-100.0) mmHg ABG HCO3 (22.0-26.0) mmol/L ABG Total CO2 (23.0-27.0) mmol/L ABG O2 Saturation (95.0-98.0) % ABG O2 Content (15.0-23.0) %vol ABG Base Excess mm/L ABG Hemoglobin (13.5-18.0) g/dL ABG Oxyhemoglobin % ABG Carboxyhemoglobin (0.0-1.6) % ABG Methemoglobin % Raghu Test O2 Delivery Device Oxygen Flow Rate L Sodium (140-148) mmol/L Potassium (3.6-5.2) mmol/L Chloride (100-108) mmol/L Carbon Dioxide (21-32) mmol/L Anion Gap (5.0-14.0) mmol/L BUN (7-18) mg/dL Creatinine (0.8-1.3) mg/dL Est Cr Clr Drug Dosing mL/min Estimated GFR (MDRD) (>60) Glucose (74-106) mg/dL Calcium (8.5-10.1) mg/dL Total Bilirubin (0.2-1.0) mg/dL AST (15-37) U/L ALT (12-78) U/L Alkaline Phosphatase (46-116) U/L Ifp-S-Yngmxeiaofa Pept (5-125) pg/mL Total Protein (6.4-8.2) g/dL Albumin (3.4-5.0) g/dL Globulin (2.3-3.5) g/dL Albumin/Globulin Ratio (1.2-2.2) PSA Screen (0.0-4.0) ug/L Urine Color Yellow Urine Appearance Clear Urine pH 6.0 (4.5-8.0) Ur Specific [place] 1.020 (1.008-1.030) Urine Protein Negative (NEGATIVE) mg/dL Urine Glucose (UA) 100 H (NEGATIVE) mg/dL Urine Ketones Negative (NEGATIVE) mg/dL Urine Occult Blood Negative (NEGATIVE) Urine Nitrite Negative (NEGAITVE) Urine Bilirubin Negative (NEGATIVE) Urine Urobilinogen 1 (NORMAL) mg/dL Ur Leukocyte Esterase Negative (NEGATIVE) Urine RBC Not seen (0-5) Urine WBC Not seen (0-5) Ur Epithelial Cells Not seen Amorphous Sediment Rare Urine Bacteria Not seen Urine Mucus Rare Meds: Medications Generic Name Dose Route Start Last Admin Trade Name Freq PRN Reason Stop Dose Admin Sodium Chloride 10 ml 11/28/16 12:49 Saline Flush FLUSH ASDIRECTED PRN Keep Vein Open Discontinued Medications Generic Name Dose Route Start Last Admin Trade Name Freq PRN Reason Stop Dose Admin Albuterol 2.5 mg 11/28/16 11:41 11/28/16 12:08 Proventil Neb Soln NEB 11/28/16 11:42 2.5 mg ONETIME ONE Administration Insulin Aspart 15 unit 11/28/16 12:48 Novolog SUBCUT 11/28/16 12:49 ONETIME ONE - Re-Assessments/Exams Free Text/Narrative Re-Assessment/Exam: 11/28/16 13:02 Family was called who serves as his KNIFE SETTER ASSEMBLER and they at first refused to bring in his meds. Lateral they said they were looking for them. His patient care coordinatior was called in [place] and she was going to check into this. He needs to have his meds set up and His Maintenance Data Analyst should be checking to see if he is taking his meds. He has many meds and these need to be looked at as to what is necessary. 11/28/16 13:07 His wbc is mildly elevated. His chest xray reveals a patchy pneumonia in the left upper lobe area. Departure - Departure Time of Disposition: 13:08 Disposition: Admitted As Inpatient 65 Condition: fair Clinical Impression: Left upper lobe pneumonia, COPD (chronic obstructive pulmonary disease), Noncompliance with medication regimen - Discharge Information Forms: ED Department Discharge Care Plan Goals: adfmit to Dr ayers. - My Orders Last 24 Hours: My Active Orders 11/28/16 11:41 RT Aerosol Therapy [RC] ASDIRECTED 11/28/16 12:49 Sodium Chloride 0.9% [Saline Flush] 10 ml FLUSH ASDIRECTED PRN Saline Lock Insert [OM.PC] Routine - Assessment/Plan Last 24 Hours: My Active Orders 11/28/16 11:41 RT Aerosol Therapy [RC] ASDIRECTED 11/28/16 12:49 Sodium Chloride 0.9% [Saline Flush] 10 ml FLUSH ASDIRECTED PRN Saline Lock Insert [OM.PC] Routine
[2016-11-28] MEDS ORDERED: Albuterol 0.083% 2.5 MG/3 ML Neb Soln NEB ONE (11:41)
--- NOTE | 2016-11-28 11:58 | CR ---
Chest 1V Frontal INDICATION: sob COMPARISON: 11/21/2011 FINDINGS: Single portable chest. Infiltrate in the left upper lobe is new, may represent pneumonia. Lungs are otherwise clear. Heart size probably within normal limits given AP lordotic projection. No pleural effusions. IMPRESSION: Left upper lobe infiltrate may represent pneumonia. No signs of pulmonary edema.
[2016-11-28] MEDS ORDERED: Insulin Aspart 100 Units/ML 3 ML Pen SUBCUT ONE ×2 (12:48→13:15)
[2016-11-28] MEDS ORDERED: Sodium Chloride 0.9% 10 ML Syringe FLUSH PRN (12:49)
[2016-11-28] MEDS ORDERED: Aluminum Hydroxide/Magnesium Hydroxide/Simethicone Susp 30 ML Cup PO ONE (13:35)
[2016-11-28] MEDS ORDERED: oxyCODONE 5 MG Tab PO PRN (13:56)
[2016-11-28] MEDS ORDERED: Albuterol 0.083% 2.5 MG/3 ML Neb Soln NEB PRN (13:56)
[2016-11-28] MEDS ORDERED: cefTRIAXone 2 GM in Sodium Chloride 0.9% 50 ML IV SCH (14:00)
[2016-11-28] MEDS ORDERED: methylPREDNISolone Sodium Succinate 125 MG/2 ML SDV IVPUSH ONE (14:10)
--- NOTE | 2016-11-28 14:13 | PCM.HP ---
H&P History of Present Illness - General Date of Service: 11/28/16 Admit Problem/Dx: Admission Diagnosis/Problem Admission Diagnosis/Problem Pneumonia Source of Information: Patient, Provider History Limitations: Reports: No Limitations - History of Present Illness Initial Comments - Free Text/Narative: Anderson presents to the emergency room today with shortness of breath and cough. Symptoms have been present for approximately one week and have been getting worse since that time. He was recently admitted to the hospital in [place] with similar symptoms and was treated with prednisone but has not been getting better. He reports some grayish sputum production with his cough. He has a sharp substernal chest pain whenever he coughs. No pain with deep respiration. He short of breath after only minimal exertion or walking a short distance. This is much different than his baseline. He can hear himself wheezing at home from time to time. No obvious fevers or chills that he is aware of. Appetite has been okay but his energy has been decreased. No change in bowel or bladder habits. No lower extremity edema or orthopnea. He says that he's been using his steroids and inhalers at home but has no idea what he is taking or were they might be at his house. No obvious sick contacts or significant travel history. Blood sugars have been up and down but he reports fairly well-controlled for the most part. Workup in the emergency room remarkable for a left upper lobe pneumonia and leukocytosis. He is hypoxic and require supplemental oxygen. He has significant wheezing. He will be admitted for management of pneumonia and a COPD exacerbation. Lower Back Pain Score (Numeric/FACES): 2 - Related Data Allergies/Adverse Reactions: Allergies Allergy/AdvReac Type Severity Reaction Status Date / Time No Known Allergies Allergy Verified 10/20/16 17:46 Home Medications: Home Meds Albuterol [Ventolin HFA] 1 - 2 puff INH ASDIRECTED PRN 09/23/14 [History] Insulin Aspart [NovoLOG] 20 unit SQ TID 09/23/14 [History] Insulin Detemir [Levemir] 60 units SQ BID 09/23/14 [History] Sertraline HCl [Zoloft] 300 mg PO DAILY 09/23/14 [History] Tiotropium [Spiriva HandiHaler] 1 tab INH DAILY 09/23/14 [History] Aspirin [Low Dose Aspirin EC] 81 mg PO DAILY 01/11/15 [History] Clopidogrel [Plavix] 75 mg PO DAILY 01/11/15 [History] Fenofibrate Nanocrystallized [Tricor] 96 mg PO DAILY 01/11/15 [History] LORazepam [Ativan] 1 mg PO TID PRN 01/11/15 [History] Lisinopril 5 mg PO DAILY 01/11/15 [History] Metoprolol Tartrate 50 mg PO BID 01/11/15 [History] QUEtiapine [SEROquel] 100 mg PO TID PRN 01/11/15 [History] atorvaSTATin [Lipitor] 80 mg PO BEDTIME 01/11/15 [History] Sucralfate [Carafate] 1 g PO QID #120 tablet 06/27/15 [Rx] amLODIPine [Norvasc] 5 mg PO DAILY 12/21/15 [History] Furosemide [Furosemide] 20 mg PO DAILY 04/24/16 [History] Nitroglycerin [Nitrostat] 0.4 mg PO ASDIRECTED PRN 04/24/16 [History] Ondansetron [Zofran ODT] 8 mg PO ASDIRECTED PRN 04/24/16 [History] Tamsulosin [Flomax] 0.4 mg PO DAILY 04/24/16 [History] Dulaglutide [Trulicity] 0.75 mg SQ WEEKLY 06/12/16 [History] Cyclobenzaprine [Flexeril] 10 mg PO TID PRN 08/10/16 [History] Ergocalciferol (Vitamin D2) [Vitamin D2] 50,000 units PO ASDIRECTED 08/10/16 [ History] Trolamine Salicylate/Aloe Vera [Aspercreme 10%] 1 applic TOP ASDIRECTED PRN [History] ARIPiprazole [Abilify] 5 mg PO DAILY 11/09/16 [History] Diclofenac Potassium [Cataflam] 50 mg PO ONETIME PRN 11/09/16 [History] Pantoprazole [ProTONIX] 40 mg PO ACBREAKFAST 11/09/16 [History] guaiFENesin [Guaifenesin] 400 mg PO Q8HR PRN 11/09/16 [History] Past Medical History HEENT History: Reports: Hard of hearing Other HEENT History: also C/O neck pain Cardiovascular History: Reports: CAD, High cholesterol, Hypertension, [place], Other (see below) Other Cardiovascular History: stents placed Respiratory History: Reports: COPD, Pneumonia, recurrent, Other (see below) Other Respiratory History: emphysema, sob with exertion Gastrointestinal History: Reports: Chronic diarrhea, PUD Other Gastrointestinal History: Fatty Liver Genitourinary History: Reports: Prostate disorder Other Genitourinary History: prostate cancer Musculoskeletal History: Reports: Back pain, chronic, Osteoarthritis Neurological History: Reports: Other (see below) Other Neuro History: [place] palsy Psychiatric History: Reports: Anxiety, Depression Other Psychiatric History: Grief, Insomnia Endocrine/Metabolic History: Reports: Diabetes, type II, IDDM, Obesity/BMI 30+ Oncologic (Cancer) History: Reports: Prostate - Infectious Disease History Infectious Disease History: Reports: Chicken pox, Measles Other Infectious Disease History: unknown to patient - Past Surgical History GI Surgical History: Reports: Appendectomy, Cholecystectomy, Colonoscopy, EGD Social & Family History - Family History Family Medical History: Unobtainable Cardiac: Reports: High cholesterol, Hypertension, Other (see below) Other Cardiac Family History: Heart Disease Respiratory: Reports: COPD Neurological: Reports: CVA Psychiatric: Reports: Depression Endocrine/Metabolic: Reports: Diabetes, type II Oncologic: Reports: Pancreatic, Renal - Tobacco Use Smoking Status *Q: Never Smoker Years of Tobacco use: 48 Used Tobacco, but Quit: Yes Month Tobacco Last Used: 1 year ago Second Hand Smoke Exposure: No - Caffeine Use Caffeine Use: Reports: Coffee - Alcohol Use Days Per Week of Alcohol Use: 0 - Recreational Drug Use Recreational Drug Use: No H&P Review of Systems - Review of Systems: Review Of Systems: See Below Free Text/Narrative: A complete 12 point review of systems was obtained. Pertinent positives and negatives are noted in the history of present illness. All other systems were reviewed and were negative except as noted. Exam - Exam Exam: See Below - Vital Signs Vital Signs: Last Vital Signs Temp 37.1 C 11/28/16 10:38 Pulse 79 11/28/16 10:38 Resp 23 H 11/28/16 10:38 BP 168/91 H 11/28/16 10:38 Pulse Ox 94 L 11/28/16 10:38 Weight: 145.15 kg - Exam Quality Assessment: Supplemental Oxygen. No: Urinary Catheter General: Alert, Oriented, Cooperative, Mild Distress HEENT: Conjunctiva Clear, Nares Patent. No: Mucosa Moist & [place] (dry), Scleral Icterus Neck: Supple, Trachea Midline. No: Lymphadenopathy, Thyromegaly Lungs: Rales (few left side of chest), Wheezing (diffuse exp wheezing with poor air movement on expiration ). No: Normal Respiratory Effort (increased work of breathing ) Cardiovascular: Regular Rate, Regular Rhythm. No: Systolic Murmur Abdomen: Normal Bowel Sounds, Soft. No: Distention, Tenderness Back Exam: Normal Inspection, Full Range of Motion Extremities: Normal Inspection, Normal Pulses. No: Cyanosis, Edema Peripheral Pulses: 2+: Dorsalis Pedis (L), Dorsalis Pedis (R) Skin: Warm, Dry, Intact Neuro Extensive - Mental Status: Alert, Oriented x3, Nl Response to Commands Neuro Extensive - Motor, Sensory, Reflexes: CN II-XII Intact. No: Dysarthria, Abnormal Motor, Tremor Psychiatric: Alert, Normal Affect - Patient Data Lab Results last 24 hrs: Laboratory Results - last 24 hr 11/28/16 11/28/16 11/28/16 Range/Units 10:58 11:12 11:12 WBC 13.2 H (4.5-11.0) K/uL RBC 4.92 (4.30-5.90) M/uL Hgb 12.8 (12.0-15.0) g/dL Hct 39.5 L (40.0-54.0) % MCV 80 (80-98) fL MCH 26 L (27-31) pg MCHC 32 (32-36) % Plt Count 210 (150-400) K/uL Add Manual Diff Yes Neutrophils % (Manual) 62 (36-66) % Band Neutrophils % 3 L (5-11) % Lymphocytes % (Manual) 26 (24-44) % Monocytes % (Manual) 6 (2-6) % Eosinophils % (Manual) 3 (2-4) % D-Dimer, Quantitative (0.0-400.0) ng/mL Puncture Site Rt radial ABG pH 7.398 (7.350-7.450) ABG pCO2 39.4 (35.0-42.0) mmHg ABG pO2 90.3 (75.0-100.0) mmHg ABG HCO3 23.8 (22.0-26.0) mmol/L ABG Total CO2 21.3 L (23.0-27.0) mmol/L ABG O2 Saturation 96.7 (95.0-98.0) % ABG O2 Content 17.3 (15.0-23.0) %vol ABG Base Excess -0.3 mm/L ABG Hemoglobin 12.9 L (13.5-18.0) g/dL ABG Oxyhemoglobin 94.6 % ABG Carboxyhemoglobin 1.3 (0.0-1.6) % ABG Methemoglobin 0.9 % Raghu Test Passed O2 Delivery Device Nasal cannula Oxygen Flow Rate 2 L Sodium 142 (140-148) mmol/L Potassium 4.2 (3.6-5.2) mmol/L Chloride 105 (100-108) mmol/L Carbon Dioxide 26 (21-32) mmol/L Anion Gap 11.5 (5.0-14.0) mmol/L BUN 15 (7-18) mg/dL Creatinine 1.0 (0.8-1.3) mg/dL Est Cr Clr Drug Dosing 79.08 mL/min Estimated GFR (MDRD) > 60 (>60) Glucose 185 H (74-106) mg/dL Calcium 8.0 L (8.5-10.1) mg/dL Total Bilirubin 0.5 D (0.2-1.0) mg/dL AST 24 (15-37) U/L ALT 35 (12-78) U/L Alkaline Phosphatase 91 (46-116) U/L Goh-Y-Amdjnbzkgpm Pept (5-125) pg/mL Total Protein 7.3 (6.4-8.2) g/dL Albumin 3.5 (3.4-5.0) g/dL Globulin 3.8 H (2.3-3.5) g/dL Albumin/Globulin Ratio 0.9 L (1.2-2.2) PSA Screen (0.0-4.0) ug/L Urine Color Urine Appearance Urine pH (4.5-8.0) Ur Specific [place] (1.008-1.030) Urine Protein (NEGATIVE) mg/dL Urine Glucose (UA) (NEGATIVE) mg/dL Urine Ketones (NEGATIVE) mg/dL Urine Occult Blood (NEGATIVE) Urine Nitrite (NEGAITVE) Urine Bilirubin (NEGATIVE) Urine Urobilinogen (NORMAL) mg/dL Ur Leukocyte Esterase (NEGATIVE) Urine RBC (0-5) Urine WBC (0-5) Ur Epithelial Cells Amorphous Sediment Urine Bacteria Urine Mucus 11/28/16 11/28/16 11/28/16 Range/Units 11:23 11:23 12:17 WBC (4.5-11.0) K/uL RBC (4.30-5.90) M/uL Hgb (12.0-15.0) g/dL Hct (40.0-54.0) % MCV (80-98) fL MCH (27-31) pg MCHC (32-36) % Plt Count (150-400) K/uL Add Manual Diff Neutrophils % (Manual) (36-66) % Band Neutrophils % (5-11) % Lymphocytes % (Manual) (24-44) % Monocytes % (Manual) (2-6) % Eosinophils % (Manual) (2-4) % D-Dimer, Quantitative 227 (0.0-400.0) ng/mL Puncture Site ABG pH (7.350-7.450) ABG pCO2 (35.0-42.0) mmHg ABG pO2 (75.0-100.0) mmHg ABG HCO3 (22.0-26.0) mmol/L ABG Total CO2 (23.0-27.0) mmol/L ABG O2 Saturation (95.0-98.0) % ABG O2 Content (15.0-23.0) %vol ABG Base Excess mm/L ABG Hemoglobin (13.5-18.0) g/dL ABG Oxyhemoglobin % ABG Carboxyhemoglobin (0.0-1.6) % ABG Methemoglobin % Raghu Test O2 Delivery Device Oxygen Flow Rate L Sodium (140-148) mmol/L Potassium (3.6-5.2) mmol/L Chloride (100-108) mmol/L Carbon Dioxide (21-32) mmol/L Anion Gap (5.0-14.0) mmol/L BUN (7-18) mg/dL Creatinine (0.8-1.3) mg/dL Est Cr Clr Drug Dosing mL/min Estimated GFR (MDRD) (>60) Glucose (74-106) mg/dL Calcium (8.5-10.1) mg/dL Total Bilirubin (0.2-1.0) mg/dL AST (15-37) U/L ALT (12-78) U/L Alkaline Phosphatase (46-116) U/L Hkm-N-Mkvgknnvcpt Pept 338 H (5-125) pg/mL Total Protein (6.4-8.2) g/dL Albumin (3.4-5.0) g/dL Globulin (2.3-3.5) g/dL Albumin/Globulin Ratio (1.2-2.2) PSA Screen 13.9 H (0.0-4.0) ug/L Urine Color Urine Appearance Urine pH (4.5-8.0) Ur Specific [place] (1.008-1.030) Urine Protein (NEGATIVE) mg/dL Urine Glucose (UA) (NEGATIVE) mg/dL Urine Ketones (NEGATIVE) mg/dL Urine Occult Blood (NEGATIVE) Urine Nitrite (NEGAITVE) Urine Bilirubin (NEGATIVE) Urine Urobilinogen (NORMAL) mg/dL Ur Leukocyte Esterase (NEGATIVE) Urine RBC (0-5) Urine WBC (0-5) Ur Epithelial Cells Amorphous Sediment Urine Bacteria Urine Mucus 11/28/16 Range/Units 12:28 WBC (4.5-11.0) K/uL RBC (4.30-5.90) M/uL Hgb (12.0-15.0) g/dL Hct (40.0-54.0) % MCV (80-98) fL MCH (27-31) pg MCHC (32-36) % Plt Count (150-400) K/uL Add Manual Diff Neutrophils % (Manual) (36-66) % Band Neutrophils % (5-11) % Lymphocytes % (Manual) (24-44) % Monocytes % (Manual) (2-6) % Eosinophils % (Manual) (2-4) % D-Dimer, Quantitative (0.0-400.0) ng/mL Puncture Site ABG pH (7.350-7.450) ABG pCO2 (35.0-42.0) mmHg ABG pO2 (75.0-100.0) mmHg ABG HCO3 (22.0-26.0) mmol/L ABG Total CO2 (23.0-27.0) mmol/L ABG O2 Saturation (95.0-98.0) % ABG O2 Content (15.0-23.0) %vol ABG Base Excess mm/L ABG Hemoglobin (13.5-18.0) g/dL ABG Oxyhemoglobin % ABG Carboxyhemoglobin (0.0-1.6) % ABG Methemoglobin % Raghu Test O2 Delivery Device Oxygen Flow Rate L Sodium (140-148) mmol/L Potassium (3.6-5.2) mmol/L Chloride (100-108) mmol/L Carbon Dioxide (21-32) mmol/L Anion Gap (5.0-14.0) mmol/L BUN (7-18) mg/dL Creatinine (0.8-1.3) mg/dL Est Cr Clr Drug Dosing mL/min Estimated GFR (MDRD) (>60) Glucose (74-106) mg/dL Calcium (8.5-10.1) mg/dL Total Bilirubin (0.2-1.0) mg/dL AST (15-37) U/L ALT (12-78) U/L Alkaline Phosphatase (46-116) U/L Gah-O-Mtemlyhnrnv Pept (5-125) pg/mL Total Protein (6.4-8.2) g/dL Albumin (3.4-5.0) g/dL Globulin (2.3-3.5) g/dL Albumin/Globulin Ratio (1.2-2.2) PSA Screen (0.0-4.0) ug/L Urine Color Yellow Urine Appearance Clear Urine pH 6.0 (4.5-8.0) Ur Specific [place] 1.020 (1.008-1.030) Urine Protein Negative (NEGATIVE) mg/dL Urine Glucose (UA) 100 H (NEGATIVE) mg/dL Urine Ketones Negative (NEGATIVE) mg/dL Urine Occult Blood Negative (NEGATIVE) Urine Nitrite Negative (NEGAITVE) Urine Bilirubin Negative (NEGATIVE) Urine Urobilinogen 1 (NORMAL) mg/dL Ur Leukocyte Esterase Negative (NEGATIVE) Urine RBC Not seen (0-5) Urine WBC Not seen (0-5) Ur Epithelial Cells Not seen Amorphous Sediment Rare Urine Bacteria Not seen Urine Mucus Rare Result Diagrams: 11/28/16 11:12 11/28/16 11:12 Imaging Impressions last 24 hrs: CXR - images personally reviewed - there is a hazy left upper lobe infiltrate. no chf, mass or cardiomegally EKG INTERPRETATION EKG Date: 11/28/16 Rhythm: NSR Rate (beats/min): 82 Wing: normal P-wave: present QRS: normal ST-T: normal QT: normal *Q Meaningful Use (ADM) - VTE *Q VTE Criteria *Q: - VTE Risk Assess *Q Each Risk Factor Represents 1 Point: Abnormal Pulmonary Function (COPD) Total Score 1 Point Risk Factors: 1 Each Risk Factor Represents 2 Points: Age 60 - 74 Years, Morbid Obesity (BMI Greater than 40) Total Score 2 Point Risk Factors: 4 Each Risk Factor Represents 3 Points: Present Cancer or Chemotherapy Total Score 3 Point Risk Factors: 3 Each Risk Factor Represents 5 Points: None Total Score 5 Point Risk Factors: 0 Venous Thromboembolism Risk Factor Score *Q: 8 - Stroke *Q Stroke Criteria *Q: - AMI *Q AMI Criteria *Q: - Problem List (1) Left upper lobe pneumonia SNOMED Code(s): 906013682 ICD Code: J18.1 - LOBAR PNEUMONIA, UNSPECIFIED ORGANISM Status: Acute Current Visit: Yes Qualifiers: Pneumonia type: due to unspecified organism Qualified Code(s): J18.1 - Lobar pneumonia, unspecified organism (2) COPD with acute exacerbation SNOMED Code(s): 694081839 ICD Code: J44.1 - CHRONIC OBSTRUCTIVE PULMONARY DISEASE W (ACUTE) EXACERBATION Status: Acute Current Visit: Yes (3) Coronary artery disease SNOMED Code(s): 03078469 ICD Code: I25.10 - ATHSCL HEART DISEASE OF [place] CORONARY ARTERY W/O ANG PCTRS Status: Chronic Priority: Medium Current Visit: No Qualifiers: Coronary Disease-Associated Artery/Lesion type: [place] artery [place] vs. transplanted heart: [place] heart Associated angina: without angina Qualified Code(s): I25.10 - Atherosclerotic heart disease of [place] coronary artery without angina pectoris (4) CA of prostate SNOMED Code(s): 128480905 ICD Code: C61 - MALIGNANT NEOPLASM OF PROSTATE Status: Chronic Current Visit: No (5) Insulin dependent diabetes mellitus with complications SNOMED Code(s): 34071962 ICD Code: E11.8 - TYPE 2 DIABETES MELLITUS WITH UNSPECIFIED COMPLICATIONS Status: Chronic Current Visit: No Problem List Initiated/Reviewed/Updated: Yes Orders Last 24hrs: Active Orders 24 hr Category Date Time Status Patient Status Manage Transfer [TRANSFER] Routine ADT 11/28/16 13:59 Ordered EKG Documentation Completion [RC] ASDIRECTED Care 11/28/16 13:01 Active RT Aerosol Therapy [RC] ASDIRECTED Care 11/28/16 11:41 Active RT Aerosol Therapy [RC] ASDIRECTED Care 11/28/16 13:56 Active Albuterol [Proventil Neb Soln] Med 11/28/16 13:56 Active 2.5 mg NEB Q2H PRN Sodium Chloride 0.9% [Saline Flush] Med 11/28/16 12:49 Active 10 ml FLUSH ASDIRECTED PRN cefTRIAXone [Rocephin] 2 gm Med 11/28/16 14:00 Active Sodium Chloride 0.9% [Normal Saline] 50 ml IV Q24H methylPREDNISolone Sod Succ [Solu-MEDROL] Med 11/28/16 14:10 Once 125 mg IVPUSH ONETIME ONE oxyCODONE Med 11/28/16 13:56 Active 5 mg PO Q4H PRN Saline Lock Insert [OM.PC] Routine Oth 11/28/16 12:49 Ordered Resuscitation Status Routine Resus Stat 11/28/16 14:00 Ordered EKG 12 Lead [EK] Routine Ther 11/28/16 13:01 Ordered Medication Orders Albuterol (Proventil Neb Soln) 2.5 mg NEB Q2H PRN PRN Reason: Shortness of Breath Ceftriaxone Sodium 2 gm/ (Sodium Chloride) 50 mls @ 100 mls/hr IV Q24H ELI Methylprednisolone Sodium Succinate (Solu-Medrol) 125 mg IVPUSH ONETIME ONE Stop: 11/28/16 14:11 Oxycodone HCl (Oxycodone) 5 mg PO Q4H PRN PRN Reason: Pain Sodium Chloride (Saline Flush) 10 ml FLUSH ASDIRECTED PRN PRN Reason: Keep Vein Open Assessment/Plan Comment:: Assessment and plan - Left upper lobe pneumonia - infiltrate noted on chest x-ray. No evidence for sepsis but he does have low oxygen saturation and COPD exacerbation as discussed below. He was not safe for outpatient management with his level of respiratory compromise. He has recently been treated with steroids. -Supplemental oxygen -Ceftriaxone and doxycycline -IV steroids and transitioned to oral redness on when able -Sputum culture if able -Scheduled and as needed nebulizers -Blood cultures if he spikes a fever Acute exacerbation of COPD - Secondary to pneumonia as discussed above. Recently on steroids but no antibiotics. Significant respiratory compromise and hypoxia. -Antibiotics and nebulizers as discussed above Insulin-dependent diabetes mellitus - Patient reports adequate sugar control for the most part. Appetite has been good. -Continue regular dose of long-acting insulin -Continue mealtime insulin -Sliding-scale insulin Coronary artery disease - No active symptoms at this time. -Continue medical management Morbid obesity with BMI greater than 45 - Maintenance issues - - DVT prophylaxis - enoxaparin - GI prophylaxis - PPI - Nutrition - diabetic diet - [place] catheter - not indicated CODE STATUS - full treatment without intubation and without ACLS Admission justification - This patient will be admitted for inpatient services and is medically appropriate meeting medical necessity for inpatient admission as outlined in my documentation. I reasonably expect the patient will require inpatient services that span a period time over 2 midnights. I reasonably expect this patient to be discharged or transferred within 96 hours [facility]. Disposition - Anticipate discharge home after the hospital stay Bernardino Mata M.D.
[2016-11-28] MEDS ORDERED: Benzonatate 100 MG Cap PO PRN (14:45)
[2016-11-28] MEDS ORDERED: Codeine/guaiFENesin 100mg-10 MG/5 ML Syrup 10 ML Cup PO PRN (14:45)
[2016-11-28] MEDS ORDERED: Sodium Chloride 0.9% 1,000 ML IV SCH (14:45)
[2016-11-28] MEDS ORDERED: Polyethylene Glycol 3350 Powder 17 GM Packet PO PRN (14:45)
[2016-11-28] MEDS ORDERED: Acetaminophen 325 MG Tab PO PRN (14:45)
[2016-11-28] MEDS ORDERED: Ondansetron 4 MG/2 ML SDV IV PRN (14:45)
[2016-11-28] MEDS ORDERED: Ondansetron 4 MG Tab.DIS PO PRN (14:45)
[2016-11-28] MEDS: Albuterol/Ipratropium 3.0-0.5 MG/3 ML Neb Soln NEB SCH ×2 (15:17→21:25)
[2016-11-28] MEDS: Doxycycline 100 MG in Sodium Chloride 0.9% 100 ML IV SCH (17:58)
[2016-11-28] MEDS: Insulin Aspart 100 Units/ML 3 ML Pen SUBCUT SCH ×3 (18:03→21:44)
[2016-11-28] MEDS: methylPREDNISolone Sodium Succinate 125 MG/2 ML SDV IVPUSH SCH (20:10)
[2016-11-28] MEDS: Metoprolol Tartrate 50 MG Tab PO SCH (21:42)
[2016-11-28] MEDS: Insulin Detemir 100 Units/ML 3 ML Pen SUBCUT SCH (21:43)
[2016-11-29] MEDS: methylPREDNISolone Sodium Succinate 125 MG/2 ML SDV IVPUSH SCH ×2 (03:58→08:45)
[2016-11-29] MEDS: Doxycycline 100 MG in Sodium Chloride 0.9% 100 ML IV SCH (03:58)
[2016-11-29] MEDS: Albuterol/Ipratropium 3.0-0.5 MG/3 ML Neb Soln NEB SCH ×2 (07:23→10:56)
[2016-11-29] MEDS: Sucralfate 1 GM Tab PO SCH ×2 (07:25→11:09)
[2016-11-29] MEDS ORDERED: Pantoprazole 40 MG Tab.CR PO SCH (07:30)
[2016-11-29] MEDS: Insulin Aspart 100 Units/ML 3 ML Pen SUBCUT SCH ×4 (08:42→12:31)
[2016-11-29] MEDS: Metoprolol Tartrate 50 MG Tab PO SCH (08:48)
[2016-11-29] MEDS: Insulin Detemir 100 Units/ML 3 ML Pen SUBCUT SCH (08:49)
[2016-11-29] MEDS ORDERED: Enoxaparin 40 MG/0.4 ML Syringe SUBCUT SCH (09:00)
[2016-11-29] MEDS ORDERED: LORazepam 1 MG Tab PO PRN (09:47)
[2016-11-29] MEDS ORDERED: QUEtiapine 100 MG Tab PO PRN (09:47)
[2016-11-29] MEDS ORDERED: Tamsulosin 0.4 MG Cap.ER PO SCH (10:00)
[2016-11-29] MEDS ORDERED: Clopidogrel 75 MG Tab PO SCH (10:00)
[2016-11-29] MEDS ORDERED: Aspirin 81 MG Tab.EC PO SCH (10:00)
[2016-11-29] MEDS ORDERED: amLODIPine 5 MG Tab PO SCH (10:00)
[2016-11-29] MEDS ORDERED: Lisinopril 5 MG Tab PO SCH (10:00)
[2016-11-29] MEDS ORDERED: Sertraline 50 MG Tab PO SCH (10:00)
[2016-11-29] MEDS ORDERED: Furosemide 20 MG Tab PO SCH (10:00)
[2016-11-29] MEDS ORDERED: ARIPiprazole 10 MG Tab PO SCH (10:00)
[2016-11-29] MEDS ORDERED: Tiotropium Inhaler 18 MCG Inhalation Powder Cap Kit of 5 INH SCH (10:00)
[2016-11-29] MEDS ORDERED: amLODIPine 2.5 MG Tab PO SCH (10:30)
[2016-11-29] MEDS ORDERED: Lisinopril 20 MG Tab PO SCH (10:30)
[2016-11-29 11:10] VITALS: BP 155/88
--- NOTE | 2016-11-29 11:30 | PCM.DCSUM1 ---
Discharge Summary - Hospital Course Brief History: 61-year-old male with history of insulin-dependent diabetes mellitus, COPD and coronary artery disease who presented with increasing shortness of breath cough and weakness. He was admitted for management of left upper lobe pneumonia and a COPD exacerbation. - Discharge Data Discharge Date: 11/29/16 Discharge Disposition: Home, Self-Care 01 Condition: Good - Discharge Diagnosis/Problem(s) (1) Left upper lobe pneumonia SNOMED Code(s): 667876527 ICD Code: J18.1 - LOBAR PNEUMONIA, UNSPECIFIED ORGANISM Status: Acute Qualifiers: Pneumonia type: due to unspecified organism Qualified Code(s): J18.1 - Lobar pneumonia, unspecified organism (2) COPD with acute exacerbation SNOMED Code(s): 598480990 ICD Code: J44.1 - CHRONIC OBSTRUCTIVE PULMONARY DISEASE W (ACUTE) EXACERBATION Status: Acute (3) Coronary artery disease SNOMED Code(s): 82924514 ICD Code: I25.10 - ATHSCL HEART DISEASE OF [place] CORONARY ARTERY W/O ANG PCTRS Status: Chronic Priority: Medium Qualifiers: Coronary Disease-Associated Artery/Lesion type: [place] artery [place] vs. transplanted heart: [place] heart Associated angina: without angina Qualified Code(s): I25.10 - Atherosclerotic heart disease of [place] coronary artery without angina pectoris (4) CA of prostate SNOMED Code(s): 586519697 ICD Code: C61 - MALIGNANT NEOPLASM OF PROST[place] Status: Chronic (5) Insulin dependent diabetes mellitus with complications SNOMED Code(s): 87706137 ICD Code: E11.8 - TYPE 2 DIABETES MELLITUS WITH UNSPECIFIED COMPLICATIONS Status: Chronic - Patient Summary/Data Hospital Course: Anderson presented to the emergency room with increasing cough and shortness of breath. Symptoms have progressed over the past week. Workup in the emergency room was suggestive of left upper lobe pneumonia with acute exacerbation of COPD. There was also a lot of confusion about home medications and the level of care he was receiving at home. He was admitted to the hospital for management including IV steroids as well as IV antibiotics. Overnight his respiratory status improved very rapidly. The significant wheezing and air flow limitation that was present on admission resolved. He was off supplemental oxygen by the morning after. He was feeling nearly back to his usual self. I was quite surprised and pleased with his rapid improvement. His blood sugars have been a little high with the use of IV steroids and hopefully will return towards normal as we transition him to prednisone. By the morning after discharge she is feeling well enough to go home. We have reviewed all of his home medications and updated his medication list based on his medications that he brought with him. I think he would benefit from some assistance in setting up medications. This will hopefully lead to better compliance and better diabetes control. We did not make any adjustments to his home medications. He will be discharged home with antibiotic coverage including doxycycline. He will have redness over the next 3 to have days and he also has a prescription for Robitussin with codeine. He should followup early next week if symptoms do not continue to improve. Anderson was admitted to the hospital under inpatient status with the idea that his condition would require the hospital stay spanning at least 2 midnights. He improved much faster than I expected and responded extremely well to the care provided in the emergency room and during the early part of the hospital stay. The day after admission he is off supplemental oxygen and his wheezing has resolved. This unforeseen rapid improvement will lead to a discharge only one midnight after hospital admission. - Patient Instructions Diet: Diabetic Diet Activity: As Tolerated Driving: May Drive Today Showering/Bathing: May Shower Notify Provider of: Fever, Increased Pain, Nausea and/or Vomiting Other/Special Instructions: 1. You were in the hospital for management of left upper lobe pneumonia complicated by an exacerbation of your COPD. You have improved quickly with care provided in the emergency room and in the hospital. I recommend 5-1/2 additional days of antibiotic therapy. I have provided a prescription for doxycycline 100 mg, take this twice daily with food to avoid stomach upset. Your first dose is due this evening. I have also provided a prescription for prednisone 20 mg tablets. Please take one tablet twice daily with meals ( breakfast and supper ) for 7 more doses. Your first dose is due this evening. 2. Please continue to take your medications as previously prescribed. We have updated her medication list during hospital stay. The list you will receive at hospital discharge reflects the pill bottles that were brought in to us from home. 3. Follow up next week if your condition does not continue to improve or if it gets worse. 4. Please seek medical attention if you develop fever greater than 101, have worsening of your shortness of breath, develop severe chest pain or you have persistent vomiting or diarrhea. - Discharge Plan Prescriptions/Med Rec: Codeine/guaiFENesin [Robitussin AC] 10 ml PO Q4H PRN #240 bottle PRN Reason: Cough Doxycycline Hyclate 100 mg PO BID #11 capsule predniSONE [Prednisone] 20 mg PO BIDAC #7 tablet Home Medications: Home Meds Albuterol [Ventolin HFA] 1 - 2 puff INH ASDIRECTED PRN 09/23/14 [History] Insulin Aspart [NovoLOG] 20 unit SQ TID 09/23/14 [History] Insulin Detemir [Levemir] 60 units SQ BID 09/23/14 [History] Sertraline HCl [Zoloft] 300 mg PO DAILY 09/23/14 [History] Tiotropium [Spiriva HandiHaler] 1 tab INH DAILY 09/23/14 [History] Aspirin [Low Dose Aspirin EC] 81 mg PO DAILY 01/11/15 [History] Fenofibrate Nanocrystallized [Tricor] 96 mg PO DAILY 01/11/15 [History] LORazepam [Ativan] 1 mg PO TID PRN 01/11/15 [History] atorvaSTATin [Lipitor] 80 mg PO BEDTIME 01/11/15 [History] Sucralfate [Carafate] 1 g PO QID #120 tablet 06/27/15 [Rx] amLODIPine [Norvasc] 2.5 mg PO DAILY 12/21/15 [History] Furosemide 40 mg PO ASDIRECTED 04/24/16 [History] Nitroglycerin [Nitrostat] 0.4 mg PO ASDIRECTED PRN 04/24/16 [History] Ondansetron [Zofran ODT] 8 mg PO ASDIRECTED PRN 04/24/16 [History] Tamsulosin [Flomax] 0.4 mg PO DAILY 04/24/16 [History] Dulaglutide [Trulicity] 0.75 mg SQ WEEKLY 06/12/16 [History] Cyclobenzaprine [Flexeril] 5 mg PO BID PRN 08/10/16 [History] Ergocalciferol (Vitamin D2) [Vitamin D2] 50,000 units PO ASDIRECTED 08/10/16 [ History] Trolamine Salicylate/Aloe Vera [Aspercreme 10%] 1 applic TOP ASDIRECTED PRN [History] ARIPiprazole [Abilify] 5 mg PO DAILY 11/09/16 [History] Metoprolol Tartrate 50 mg PO BID 11/28/16 [History] Codeine/guaiFENesin [Robitussin AC] 10 ml PO Q4H PRN #240 bottle 11/29/16 [Rx] Digoxin 250 mcg PO DAILY 11/29/16 [History] Doxycycline Hyclate 100 mg PO BID #11 capsule 11/29/16 [Rx] Lisinopril 40 mg PO DAILY 11/29/16 [History] Omeprazole 20 mg PO BID 11/29/16 [History] QUEtiapine Fumarate [Quetiapine Fumarate] 800 mg PO BEDTIME 11/29/16 [History] predniSONE [Prednisone] 20 mg PO BIDAC #7 tablet 11/29/16 [Rx] Patient Handouts: Acute Bronchitis, Doxycycline tablets or capsules Referrals: PCP,None [Primary Care Provider] - (followup with your primary care next week if your symptoms do not continue to improve or they get worse) - Discharge Summary/Plan Comment DC Time >30 min.: No (25) - Patient Data Vitals - Most Recent: Last Vital Signs Temp 36.2 C 11/29/16 10:23 Pulse 76 11/29/16 10:57 Resp 18 11/29/16 10:23 BP 155/88 H 11/29/16 11:09 Pulse Ox 97 11/29/16 10:23 Weight - Most Recent: 145.15 kg I&O - Last 24 hours: Intake & Output 11/28/16 11/29/16 11/29/16 22:59 06:59 14:59 Intake Total 2285 100 600 Output Total 400 Balance 2285 -300 600 Lab Results - Last 24 hrs: Laboratory Results - last 24 hr 11/29/16 11/29/16 Range/Units 04:30 04:30 WBC 14.9 H (4.5-11.0) K/uL RBC 4.91 (4.30-5.90) M/uL Hgb 12.6 (12.0-15.0) g/dL Hct 39.2 L (40.0-54.0) % MCV 80 (80-98) fL MCH 26 L (27-31) pg MCHC 32 (32-36) % Plt Count 207 (150-400) K/uL Sodium 141 (140-148) mmol/L Potassium 4.4 (3.6-5.2) mmol/L Chloride 106 (100-108) mmol/L Carbon Dioxide 26 (21-32) mmol/L Anion Gap 9.4 (5.0-14.0) mmol/L BUN 15 (7-18) mg/dL Creatinine 1.0 (0.8-1.3) mg/dL Est Cr Clr Drug Dosing 79.08 mL/min Estimated GFR (MDRD) > 60 (>60) Glucose 209 H (74-106) mg/dL Calcium 8.2 L (8.5-10.1) mg/dL Magnesium 2.2 (1.8-2.4) mg/dL Med Orders - Current: Current Medications Acetaminophen (Tylenol) 650 mg PO Q4H PRN PRN Reason: Pain (Mild 1-3)/fever Albuterol (Proventil Neb Soln) 2.5 mg NEB Q2H PRN PRN Reason: Shortness of Breath Albuterol/Ipratropium (Duoneb 3.0-0.5 Mg/3 Ml) 3 ml NEB QIDRT [facility] Last Admin: 11/29/16 10:56 Dose: 3 ml Amlodipine Besylate (Norvasc) 2.5 mg PO DAILY [facility] Last Admin: 11/29/16 11:09 Dose: 2.5 mg Aripiprazole (Abilify) 5 mg PO DAILY [facility] Last Admin: 11/29/16 11:06 Dose: 5 mg Aspirin (Halfprin) 81 mg PO DAILY [facility] Last Admin: 11/29/16 11:08 Dose: 81 mg Atorvastatin Calcium (Lipitor) 80 mg PO BEDTIME [facility] Benzonatate (Tessalon Perles) 100 mg PO TID PRN PRN Reason: Cough Enoxaparin Sodium (Lovenox) 40 mg SUBCUT DAILY [facility] Last Admin: 11/29/16 08:48 Dose: 40 mg Furosemide (Lasix) 20 mg PO DAILY [facility] Last Admin: 11/29/16 11:09 Dose: 20 mg Guaifenesin/Codeine Phosphate (Robitussin Ac) 10 ml PO Q4H PRN PRN Reason: Cough Doxycycline Hyclate 100 mg/ (Sodium Chloride) 100 mls @ 100 mls/hr IV Q12H [facility] Last Admin: 11/29/16 03:58 Dose: 100 mls/hr Sodium Chloride (Normal Saline) 1,000 mls @ 125 mls/hr IV ASDIRECTED [facility] Last Admin: 11/29/16 02:40 Dose: 125 mls/hr Ceftriaxone Sodium 2 gm/ (Sodium Chloride) 50 mls @ 100 mls/hr IV Q24H [facility] Insulin Aspart (Novolog) 20 unit SUBCUT TIDMEALS [facility] Last Admin: 11/29/16 08:42 Dose: 20 units Insulin Aspart (Novolog) 0 unit SUBCUT WITHMEALSANDBED [facility] PRN Reason: Protocol Last Admin: 11/29/16 08:43 Dose: 4 units Insulin Detemir (Levemir) 60 unit SUBCUT BID [facility] Last Admin: 11/29/16 08:49 Dose: 60 units Lisinopril (Prinivil) 40 mg PO DAILY [facility] Last Admin: 11/29/16 11:06 Dose: 40 mg Lorazepam (Ativan) 1 mg PO TID PRN PRN Reason: Anxiety Methylprednisolone Sodium Succinate (Solu-Medrol) 62.5 mg IVPUSH Q6H [facility] Last Admin: 11/29/16 08:45 Dose: 62.5 mg Metoprolol Tartrate (Lopressor) 50 mg PO BID [facility] Last Admin: 11/29/16 08:48 Dose: 50 mg Ondansetron HCl (Zofran Odt) 4 mg PO Q6H PRN PRN Reason: Nausea able to take PO Ondansetron HCl (Zofran) 4 mg IV Q6H PRN PRN Reason: Nausea/Vomiting Oxycodone HCl (Oxycodone) 5 mg PO Q4H PRN PRN Reason: Pain Pantoprazole Sodium (Protonix) 40 mg PO ACBREAKFAST [facility] Last Admin: 11/29/16 07:24 Dose: 40 mg Polyethylene Glycol (Miralax) 17 gm PO DAILY PRN PRN Reason: Constipation Quetiapine Fumarate 600 mg/ (Quetiapine Fumarate 200 mg) 800 mg PO BEDTIME [facility] Senna/Docusate Sodium (Senna Plus) 1 tab PO BID PRN PRN Reason: Constipation Sertraline HCl (Zoloft) 300 mg PO DAILY [facility] Last Admin: 11/29/16 11:07 Dose: 300 mg Sodium Chloride (Saline Flush) 10 ml FLUSH ASDIRECTED PRN PRN Reason: Keep Vein Open Sucralfate (Carafate) 1 gm PO QIDACANDBED [facility] Last Admin: 11/29/16 11:09 Dose: 1 gm Tamsulosin HCl (Flomax) 0.4 mg PO DAILY [facility] Last Admin: 11/29/16 11:08 Dose: 0.4 mg Tiotropium [place] (Spiriva Handihaler) 18 mcg INH DAILY@0700 [facility] Last Admin: 11/29/16 10:57 Dose: 18 mcg Discontinued Medications Al Hydroxide/Mg Hydroxide (Mag-Al Plus) 30 ml PO ONETIME ONE Stop: 11/28/16 13:36 Last Admin: 11/28/16 17:58 Dose: Not Given Albuterol (Proventil Neb Soln) 2.5 mg NEB ONETIME ONE Stop: 11/28/16 11:42 Last Admin: 11/28/16 12:08 Dose: 2.5 mg Clopidogrel Bisulfate (Plavix) 75 mg PO DAILY [facility] Last Admin: 11/29/16 11:13 Dose: Not Given Ceftriaxone Sodium 2 gm/ (Sodium Chloride) 50 mls @ 100 mls/hr IV Q24H [facility] Stop: 11/28/16 16:00 Last Admin: 11/28/16 15:21 Dose: 100 mls/hr Insulin Aspart (Novolog) 15 unit SUBCUT ONETIME ONE Stop: 11/28/16 13:16 Last Admin: 11/28/16 13:12 Dose: 15 units Methylprednisolone Sodium Succinate (Solu-Medrol) 125 mg IVPUSH ONETIME ONE Stop: 11/28/16 14:11 Last Admin: 11/28/16 15:22 Dose: 125 mg Quetiapine Fumarate (Seroquel) 100 mg PO TID PRN PRN Reason: Anxiety *Q Meaningful Use (DIS) - VTE *Q VTE Criteria *Q: - Stroke *Q Stroke Criteria *Q: - AMI *Q AMI Criteria *Q:
[2016-11-29] MEDS ORDERED: cefTRIAXone 2 GM in Sodium Chloride 0.9% 50 ML IV SCH ×2 (12:00→14:00)
[2016-11-29] MEDS ORDERED: QUEtiapine 100 MG Tab PO SCH (21:00)
[2016-11-29] MEDS ORDERED: QUETIAPINE PO SCH ×2 (21:00)
[2016-11-29] MEDS ORDERED: atorvaSTATin 20 MG Tab PO SCH (21:00)
== END 2016-11-29 13:09 | disposition home or self-care (01) | DRG 190 ==
LOC: JP.ED 10:35 → JP.MS 13:59
PROVIDERS: ADMIT Internal Medicine; ATTEND Internal Medicine
DX: J44.0 Chronic obstructive pulmonary disease with (acute) lower respiratory infection (principal); J18.1 Lobar pneumonia, unspecified organism; Z68.42 Body mass index [BMI] 45.0-49.9, adult; J44.1 Chronic obstructive pulmonary disease with (acute) exacerbation; E11.9 Type 2 diabetes mellitus without complications; Z79.4 Long term (current) use of insulin; I25.10 Atherosclerotic heart disease of native coronary artery without angina pectoris; C61 Malignant neoplasm of prostate; R09.02 Hypoxemia; Z95.5 Presence of coronary angioplasty implant and graft; F41.8 Other specified anxiety disorders; E66.01 Morbid (severe) obesity due to excess calories
CPT/HCPCS: 36415; 36600; 71010; 71010-26; 80048; 80053; 81001; 82803; 82962; 83735; 83880; 85025; 85027; 85379; 93005; 94640; 94640-76; 94664; 94762; 96365; 99285-25; A9270-GY; G0103; J0696; J1650; J2930; J7030; J7040; J7050; J7620

== ENCOUNTER 2016-12-09 10:56 | Emergency (ER) | payer MEDICAID ==
[2016-12-09] MEDS ORDERED: Sodium Chloride 0.9% 10 ML Syringe FLUSH PRN (11:48)
[2016-12-09] MEDS ORDERED: Acetaminophen 500 MG Tab PO ONE (11:55)
--- NOTE | 2016-12-09 12:00 | EDM.PDOC ---
ED HPI GENERAL MEDICAL PROBLEM - General Chief Complaint: General Stated Complaint: CHEST TIGHTNESS Time Seen by Provider: 12/09/16 11:50 Source of Information: Reports: Patient History Limitations: Reports: No Limitations - History of Present Illness INITIAL COMMENTS - FREE TEXT/NARRATIVE: Anderson is a 61 year old male who presents to the ED today with c/o pain to bilateral lower anterior chest that radiates up towards bilateral armpits for the last 2 days. Patient denies any associated sob. Patient reports pain increases with palpation and deep inspiration. Patient was recently hospitalized here for pneumonia, he was discharged home on November 29 with prednisone and doxycycline, he finished both of these last week. Patient denies any vomiting or diarrhea. Patient does c/o mild nausea. Patient denies any increase LE swelling. Patient has been using albuterol and spiriva at home for his COPD. He is not currently as smoker. Patient reports that on occasion he becomes diaphoretic secondary to pain. Duration: Day(s): (2) Location: Reports: Chest, Abdomen Quality: Reports: Ache Severity: Mild Worsens with: Reports: Breathing Anterior Chest Pain Score (Numeric/FACES): 6 - Related Data Allergies Allergy/AdvReac Type Severity Reaction Status Date / Time No Known Allergies Allergy Verified 12/09/16 11:15 Home Meds: Home Meds Albuterol [Ventolin HFA] 1 - 2 puff INH ASDIRECTED PRN 09/23/14 [History] Insulin Aspart [NovoLOG] 20 unit SQ TID 09/23/14 [History] Insulin Detemir [Levemir] 60 units SQ BID 09/23/14 [History] Sertraline HCl [Zoloft] 300 mg PO DAILY 09/23/14 [History] Tiotropium [Spiriva HandiHaler] 1 tab INH DAILY 09/23/14 [History] Aspirin [Low Dose Aspirin EC] 81 mg PO DAILY 01/11/15 [History] Fenofibrate Nanocrystallized [Tricor] 96 mg PO DAILY 01/11/15 [History] LORazepam [Ativan] 1 mg PO TID PRN 01/11/15 [History] atorvaSTATin [Lipitor] 80 mg PO BEDTIME 01/11/15 [History] Sucralfate [Carafate] 1 g PO QID #120 tablet 06/27/15 [Rx] amLODIPine [Norvasc] 2.5 mg PO DAILY 12/21/15 [History] Furosemide 40 mg PO ASDIRECTED 04/24/16 [History] Nitroglycerin [Nitrostat] 0.4 mg PO ASDIRECTED PRN 04/24/16 [History] Ondansetron [Zofran ODT] 8 mg PO ASDIRECTED PRN 04/24/16 [History] Tamsulosin [Flomax] 0.4 mg PO DAILY 04/24/16 [History] Dulaglutide [Trulicity] 0.75 mg SQ WEEKLY 06/12/16 [History] Cyclobenzaprine [Flexeril] 5 mg PO BID PRN 08/10/16 [History] Ergocalciferol (Vitamin D2) [Vitamin D2] 50,000 units PO ASDIRECTED 08/10/16 [ History] Trolamine Salicylate/Aloe Vera [Aspercreme 10%] 1 applic TOP ASDIRECTED PRN [History] ARIPiprazole [Abilify] 5 mg PO DAILY 11/09/16 [History] Metoprolol Tartrate 50 mg PO BID 11/28/16 [History] Codeine/guaiFENesin [Robitussin AC] 10 ml PO Q4H PRN #240 bottle 11/29/16 [Rx] Digoxin 250 mcg PO DAILY 11/29/16 [History] Lisinopril 40 mg PO DAILY 11/29/16 [History] Omeprazole 20 mg PO BID 11/29/16 [History] QUEtiapine Fumarate [Quetiapine Fumarate] 800 mg PO BEDTIME 11/29/16 [History] Clopidogrel Bisulfate [Plavix] 75 mg PO DAILY 12/09/16 [History] Past Medical History HEENT History: Reports: Hard of Hearing Other HEENT History: also C/O neck pain Cardiovascular History: Reports: CAD, High Cholesterol, Hypertension, OR, Other (See Below) Other Cardiovascular History: stents placed Respiratory History: Reports: COPD, Pneumonia, Recurrent, Other (See Below) Other Respiratory History: emphysema, sob with exertion Gastrointestinal History: Reports: Chronic Diarrhea, PUD Other Gastrointestinal History: Fatty Liver Genitourinary History: Reports: Prostate Disorder Other Genitourinary History: prostate cancer Musculoskeletal History: Reports: Back Pain, Chronic, Osteoarthritis Neurological History: Reports: Other (See Below) Other Neuro History: [place] palsy Psychiatric History: Reports: Anxiety, Depression Other Psychiatric History: Grief, Insomnia Endocrine/Metabolic History: Reports: Diabetes, Type II, IDDM, Obesity/BMI 30+ Oncologic (Cancer) History: Reports: Prostate - Infectious Disease History Infectious Disease History: Reports: Chicken Pox, Measles Other Infectious Disease History: unknown to patient - Past Surgical History Cardiovascular Surgical History: Reports: Coronary Artery Stent Social & Family History - Family History Family Medical History: Unobtainable Cardiac: Reports: High Cholesterol, Hypertension, Other (See Below) Other Cardiac Family History: Heart Disease Respiratory: Reports: COPD Neurological: Reports: CVA Psychiatric: Reports: Depression Endocrine/Metabolic: Reports: Diabetes, type II Oncologic: Reports: Pancreatic, Renal - Tobacco Use Smoking Status *Q: Never Smoker Years of Tobacco use: 48 Packs/Tins Daily: 1 Used Tobacco, but Quit: Yes Month Tobacco Last Used: 1 year ago Second Hand Smoke Exposure: No - Caffeine Use Caffeine Use: Reports: Coffee, Soda - Alcohol Use Days Per Week of Alcohol Use: 0 - Recreational Drug Use Recreational Drug Use: No ED ROS GENERAL - Review of Systems Review Of Systems: ROS reveals no pertinent complaints other than HPI. ED EXAM, GENERAL - Physical Exam Exam: See Below Exam Limited By: No Limitations General Appearance: Alert, WD/WN, No Apparent Distress Ears: Normal External Exam Nose: Normal Inspection Throat/Mouth: Normal Inspection, Normal Oropharynx Head: Atraumatic Neck: Normal Inspection, Supple, Non-Tender Respiratory/Chest: No Respiratory Distress, Lungs Clear, Normal Breath Sounds, No Accessory Muscle Use, Other (Mild tenderness to deep palpation to right lower anterior rib region, RUQ) Cardiovascular: Normal Peripheral Pulses, Regular Rate, Rhythm, No Edema GI/Abdominal: Normal Bowel Sounds, Distended (Mild RUQ tenderness), Other (Mild RUQ ) Neurological: Alert, Oriented, CN II-XII Intact, Normal Cognition Psychiatric: Normal Affect Skin Exam: Warm, Dry, Other (small abrasion to left cheek from shaving) EKG INTERPRETATION EKG Date: 12/09/16 Time: 12:00 Rhythm: NSR [place]: normal P-wave: present QRS: normal ST-T: normal Comparison: no change (No change when compared to 11/28/2016) Course - Vital Signs Text/Narrative:: Anderson is a 61 year old male who presents to the ED today with c/o pain with inspiration to bilateral anterior lower rib region, worse on right than left. Please refer to HPI and focused exam. EKG obtained and is negative for any ischemic changes. Patient on exam is mildy dehydrated, he is non-toxic appearing. Patient is not hypoxic or dyspneic on exam. Patient was just admitted and discharged for pneumonia on 11/29. Concerns for pneumonia that hasn 't resolved or a new infection. PIV established. CXR obtained and on my review has what looks like a RLL infiltrate which would certainly fit with patient's pain. Patient's prior x-ray looks like infiltrate was on the left lower lobe. Blood work shows a leukocytosis of 15.1 with a left shift. CMP returns with a sodium of 137, potassium of 4.9, BUN is mildly elevated at 19, creatinine is up from 1.0 at 1.4 today. Troponin is undectable. Given patient' s hx of COPD in light of his fairly recent hospital admission, I will start him on Levaquin for his pneumonia. Patient received a liter of NS here with 750 mg of Levaquin IV. I feel that patient is stable to be discharged home on oral Levaquin which he can start tomorrow. Patient feels comfortable going home. He was encouraged to continue using his albuterol and Spiriva as prescribed. Patient has follow up appt with PCP next week. Patient was cautioned with regard to bleeding/bruising risk while on Levaquin and Plavix. Reasons to return to the ED were discussed in detail. Patient is agreeable to plan of care and questions were answered prior to discharge. Patient did request something for pain, he was sent home with 10 (5 mg) oxycodone. Last Recorded V/S: Last Vital Signs Temp 36.2 C 12/09/16 15:27 Pulse 77 12/09/16 15:27 Resp 16 12/09/16 15:27 BP 132/72 12/09/16 15:27 Pulse Ox 96 12/09/16 15:27 - Orders/Labs/Meds Orders: Active Orders 24 hr Category Date Time Status EKG Documentation Completion [RC] ASDIRECTED Care 12/09/16 11:16 Active Peripheral IV Care [RC] . DIRECTED Care 12/09/16 11:49 Active Sodium Chloride 0.9% [Saline Flush] Med 12/09/16 11:48 Active 10 ml FLUSH ASDIRECTED PRN Peripheral IV Insertion Adult [OM.PC] Routine Oth 12/09/16 11:48 Ordered EKG 12 Lead [EK] Stat Ther 12/09/16 11:16 Ordered Medication Orders Sodium Chloride (Saline Flush) 10 ml FLUSH ASDIRECTED PRN PRN Reason: Keep Vein Open Labs: Laboratory Tests 12/09/16 12/09/16 12/09/16 Range/Units 12:05 12:05 12:05 WBC 15.1 H (4.5-11.0) K/uL RBC 5.30 (4.30-5.90) M/uL Hgb 13.8 (12.0-15.0) g/dL Hct 42.3 (40.0-54.0) % MCV 80 (80-98) fL MCH 26 L (27-31) pg MCHC 33 (32-36) % Plt Count 352 (150-400) K/uL Neut % (Auto) 72 H (36-66) % Lymph % (Auto) 19 L (24-44) % Cobb % (Auto) 6 (2-6) % Eos % (Auto) 2 (2-4) % Baso % (Auto) 1 (0-1) % Sodium 137 L (140-148) mmol/L Potassium 4.9 (3.6-5.2) mmol/L Chloride 101 (100-108) mmol/L Carbon Dioxide 24 (21-32) mmol/L Anion Gap 16.9 H (5.0-14.0) mmol/L BUN 19 H (7-18) mg/dL Creatinine 1.4 H (0.8-1.3) mg/dL Est Cr Clr Drug Dosing TNP Estimated GFR (MDRD) 51 L (>60) Glucose 186 H (74-106) mg/dL Calcium 8.7 (8.5-10.1) mg/dL Total Bilirubin 0.4 (0.2-1.0) mg/dL AST 28 (15-37) U/L ALT 30 (12-78) U/L Alkaline Phosphatase 100 (46-116) U/L Troponin I < 0.017 (0.000-0.056) ng/mL C-Reactive Protein (0.0-0.3) mg/dL Total Protein 7.8 (6.4-8.2) g/dL Albumin 3.7 (3.4-5.0) g/dL Globulin 4.1 H (2.3-3.5) g/dL Albumin/Globulin Ratio 0.9 L (1.2-2.2) Lipase 79 (73-393) U/L 12/09/16 Range/Units 12:05 WBC (4.5-11.0) K/uL RBC (4.30-5.90) M/uL Hgb (12.0-15.0) g/dL Hct (40.0-54.0) % MCV (80-98) fL MCH (27-31) pg MCHC (32-36) % Plt Count (150-400) K/uL Neut % (Auto) (36-66) % Lymph % (Auto) (24-44) % Cobb % (Auto) (2-6) % Eos % (Auto) (2-4) % Baso % (Auto) (0-1) % Sodium (140-148) mmol/L Potassium (3.6-5.2) mmol/L Chloride (100-108) mmol/L Carbon Dioxide (21-32) mmol/L Anion Gap (5.0-14.0) mmol/L BUN (7-18) mg/dL Creatinine (0.8-1.3) mg/dL Est Cr Clr Drug Dosing Estimated GFR (MDRD) (>60) Glucose (74-106) mg/dL Calcium (8.5-10.1) mg/dL Total Bilirubin (0.2-1.0) mg/dL AST (15-37) U/L ALT (12-78) U/L Alkaline Phosphatase (46-116) U/L Troponin I (0.000-0.056) ng/mL C-Reactive Protein 0.91 H (0.0-0.3) mg/dL Total Protein (6.4-8.2) g/dL Albumin (3.4-5.0) g/dL Globulin (2.3-3.5) g/dL Albumin/Globulin Ratio (1.2-2.2) Lipase (73-393) U/L Meds: Medications Generic Name Dose Route Start Last Admin Trade Name Freq PRN Reason Stop Dose Admin Sodium Chloride 10 ml 12/09/16 11:48 Saline Flush FLUSH ASDIRECTED PRN Keep Vein Open Discontinued Medications Generic Name Dose Route Start Last Admin Trade Name Gale PRN Reason Stop Dose Admin Acetaminophen 1,000 mg 12/09/16 11:55 12/09/16 12:04 Tylenol Extra Strength PO 12/09/16 11:56 1,000 mg ONETIME ONE Administration Levofloxacin/Dextrose 750 mg/ 150 mls @ 100 mls/hr 12/09/16 12:54 12/09/16 13 :41 Premix IV 12/09/16 14:23 100 mls/hr ONETIME ONE Administration Sodium Chloride 1,000 mls @ 999 mls/hr 12/09/16 12:52 12/09/16 13:40 Normal Saline IV 12/09/16 13:52 999 mls/hr .BOLUS ONE Administration Departure - Departure Time of Disposition: 14:45 Disposition: Home, Self-Care 01 Condition: good Clinical Impression: Pneumonia RLL pneumonia Qualifiers: Pneumonia type: due to unspecified organism Qualified Code(s): J18.1 - Lobar pneumonia, unspecified organism - Discharge Information Instructions: Chronic Obstructive Pulmonary Disease, [id number], Community- Acquired Pneumonia, Adult, [id number] Referrals: Vasquez Sands PA [Primary Care Provider] - Forms: ED Department Discharge Care Plan Goals: Please take Levaquin as prescribed for the next 5 days. You can start this tomorrow as you received a dose IV today in the ED. Watch for bruising or signs of bleeding as this antibiotic may increase the effects of your Plavix. I would like you seen by your primary doctor in the next week. Take your Spiriva and Albuterol as needed. Return to the ED with any concerns/complications/ worsening symptoms. Make sure you are drinking plenty of water. - My Orders Last 24 Hours: My Active Orders 12/09/16 11:16 EKG Documentation Completion [RC] ASDIRECTED EKG 12 Lead [EK] Stat 12/09/16 11:48 Sodium Chloride 0.9% [Saline Flush] 10 ml FLUSH ASDIRECTED PRN Peripheral IV Insertion Adult [OM.PC] Routine 12/09/16 11:49 Peripheral IV Care [RC] . DIRECTED - Assessment/Plan Last 24 Hours: My Active Orders 12/09/16 11:16 EKG Documentation Completion [RC] ASDIRECTED EKG 12 Lead [EK] Stat 12/09/16 11:48 Sodium Chloride 0.9% [Saline Flush] 10 ml FLUSH ASDIRECTED PRN Peripheral IV Insertion Adult [OM.PC] Routine 12/09/16 11:49 Peripheral IV Care [RC] . DIRECTED
--- NOTE | 2016-12-09 12:31 | CR ---
Low lung volumes. Mild cardiomegaly. No focal consolidation. Pulmonary vasculature within normal metcalf its for low lung volumes.
[2016-12-09] MEDS ORDERED: Sodium Chloride 0.9% 1,000 ML IV ONE (12:52)
[2016-12-09] MEDS ORDERED: Levofloxacin/Dextrose 5%-Water 750 MG in Premix Bag 1 BAG IV ONE (12:54)
[2016-12-09 15:29] VITALS: BP 132/72
== END 2016-12-09 15:36 | disposition home or self-care (01) ==
LOC: JP.ED 10:56
DX: J18.1 Lobar pneumonia, unspecified organism (principal); I25.2 Old myocardial infarction; I25.10 Atherosclerotic heart disease of native coronary artery without angina pectoris; I10 Essential (primary) hypertension; E78.00 Pure hypercholesterolemia, unspecified; J44.9 Chronic obstructive pulmonary disease, unspecified; F41.9 Anxiety disorder, unspecified; F32.9 Major depressive disorder, single episode, unspecified; E11.9 Type 2 diabetes mellitus without complications; E66.9 Obesity, unspecified; Z68.42 Body mass index [BMI] 45.0-49.9, adult; Z85.46 Personal history of malignant neoplasm of prostate; Z95.5 Presence of coronary angioplasty implant and graft; Z79.4 Long term (current) use of insulin; Z79.82 Long term (current) use of aspirin; Z79.02 Long term (current) use of antithrombotics/antiplatelets; Z79.899 Other long term (current) drug therapy
CPT/HCPCS: 36415; 71020; 80053; 83690; 84484; 85025; 86140; 93005; 96365; 96366; 99285; A9270; J1956; J7040

== ENCOUNTER 2016-12-21 11:50 | Emergency (ER) | payer MEDICAID ==
[2016-12-21 12:17] VITALS: BP 139/78
--- NOTE | 2016-12-21 12:44 | EDM.PDOC ---
ED HPI GENERAL MEDICAL PROBLEM - General Chief Complaint: General Stated Complaint: ANXIETY- OUT OF MEDS Time Seen by Provider: 12/21/16 12:20 Source of Information: Reports: Patient History Limitations: Reports: No Limitations - History of Present Illness INITIAL COMMENTS - FREE TEXT/NARRATIVE: Patient presents today with complaints of panic attacks at home and anxiety related to recent discovery of cyst to one of his kidneys. He reports SOB feeling cramped, overwhelmed, racing thoughts, tearful and becoming scared. Onset Date: 12/20/16 Duration: Day(s): Worsens with: Reports: Other (Going out in public or around other people. ) Associated Symptoms: Reports: No Other Symptoms right flank Pain Score (Numeric/FACES): 5 - Related Data Allergies Allergy/AdvReac Type Severity Reaction Status Date / Time No Known Allergies Allergy Verified 12/09/16 11:15 Home Meds: Home Meds Albuterol [Ventolin HFA] 1 - 2 puff INH ASDIRECTED PRN 09/23/14 [History] Insulin Aspart [NovoLOG] 20 unit SQ TID 09/23/14 [History] Insulin Detemir [Levemir] 60 units SQ BID 09/23/14 [History] Sertraline HCl [Zoloft] 300 mg PO DAILY 09/23/14 [History] Tiotropium [Spiriva HandiHaler] 1 tab INH DAILY 09/23/14 [History] Aspirin [Low Dose Aspirin EC] 81 mg PO DAILY 01/11/15 [History] Fenofibrate Nanocrystallized [Tricor] 96 mg PO DAILY 01/11/15 [History] LORazepam [Ativan] 1 mg PO TID PRN 01/11/15 [History] atorvaSTATin [Lipitor] 80 mg PO BEDTIME 01/11/15 [History] Sucralfate [Carafate] 1 g PO QID #120 tablet 06/27/15 [Rx] amLODIPine [Norvasc] 2.5 mg PO DAILY 12/21/15 [History] Furosemide 40 mg PO ASDIRECTED 04/24/16 [History] Nitroglycerin [Nitrostat] 0.4 mg PO ASDIRECTED PRN 04/24/16 [History] Ondansetron [Zofran ODT] 8 mg PO ASDIRECTED PRN 04/24/16 [History] Tamsulosin [Flomax] 0.4 mg PO DAILY 04/24/16 [History] Dulaglutide [Trulicity] 0.75 mg SQ WEEKLY 06/12/16 [History] Cyclobenzaprine [Flexeril] 5 mg PO BID PRN 08/10/16 [History] Ergocalciferol (Vitamin D2) [Vitamin D2] 50,000 units PO ASDIRECTED 08/10/16 [ History] Trolamine Salicylate/Aloe Vera [Aspercreme 10%] 1 applic TOP ASDIRECTED PRN [History] ARIPiprazole [Abilify] 5 mg PO DAILY 11/09/16 [History] Metoprolol Tartrate 50 mg PO BID 11/28/16 [History] Codeine/guaiFENesin [Robitussin AC] 10 ml PO Q4H PRN #240 bottle 11/29/16 [Rx] Digoxin 250 mcg PO DAILY 11/29/16 [History] Lisinopril 40 mg PO DAILY 11/29/16 [History] Omeprazole 20 mg PO BID 11/29/16 [History] QUEtiapine Fumarate [Quetiapine Fumarate] 800 mg PO BEDTIME 11/29/16 [History] Clopidogrel Bisulfate [Plavix] 75 mg PO DAILY 12/09/16 [History] Past Medical History HEENT History: Reports: Hard of Hearing Other HEENT History: also C/O neck pain Cardiovascular History: Reports: CAD, High Cholesterol, Hypertension, ID, Other (See Below) Other Cardiovascular History: stents placed Respiratory History: Reports: COPD, Pneumonia, Recurrent, Other (See Below) Other Respiratory History: emphysema, sob with exertion Gastrointestinal History: Reports: Chronic Diarrhea, PUD Other Gastrointestinal History: Fatty Liver Genitourinary History: Reports: Prostate Disorder Other Genitourinary History: prostate cancer Musculoskeletal History: Reports: Back Pain, Chronic, Osteoarthritis Neurological History: Reports: Other (See Below) Other Neuro History: [place] palsy Psychiatric History: Reports: Anxiety, Depression Other Psychiatric History: Grief, Insomnia Endocrine/Metabolic History: Reports: Diabetes, Type II, IDDM, Obesity/BMI 30+ Oncologic (Cancer) History: Reports: Prostate - Infectious Disease History Infectious Disease History: Reports: Chicken Pox, Measles Other Infectious Disease History: unknown to patient - Past Surgical History Cardiovascular Surgical History: Reports: Coronary Artery Stent Social & Family History - Family History Family Medical History: Unobtainable Cardiac: Reports: High Cholesterol, Hypertension, Other (See Below) Other Cardiac Family History: Heart Disease Respiratory: Reports: COPD Neurological: Reports: CVA Psychiatric: Reports: Depression Endocrine/Metabolic: Reports: Diabetes, type II Oncologic: Reports: Pancreatic, Renal - Tobacco Use Smoking Status *Q: Never Smoker Years of Tobacco use: 48 Packs/Tins Daily: 1 Used Tobacco, but Quit: Yes Month Tobacco Last Used: 1 year ago Second Hand Smoke Exposure: No - Caffeine Use Caffeine Use: Reports: Coffee, Soda - Alcohol Use Days Per Week of Alcohol Use: 0 - Recreational Drug Use Recreational Drug Use: No ED ROS GENERAL - Review of Systems Review Of Systems: See Below Constitutional: Denies: Fever, Chills, Weakness, Fatigue, Night Sweats, Diaphoresis HEENT: Reports: No Symptoms Respiratory: Denies: Shortness of Breath, Wheezing, Cough, Sputum Cardiovascular: Denies: Chest Pain, Blood Pressure Problem, Dyspnea on Exertion , Edema, Lightheadedness, Orthopnea, Palpitations, PND, Syncope Endocrine: Reports: No Symptoms GI/Abdominal: Reports: No Symptoms : Reports: No Symptoms Musculoskeletal: Reports: No Symptoms Skin: Denies: Cyanosis, Mottled, Rash, Erythema, Wound Neurological: Denies: Confusion, Dizziness, Headache, Numbness, Seizure, Syncope , Tingling, Tremors, Difficulty Walking, Change in Speech, Gait Disturbance Psychiatric: Reports: Agitation, Anxiety, Depression, Mood Lability. Denies: Confusion, Hallucinations, Homicidal Ideation, Suicidal Ideation Hematologic/Lymphatic: Reports: No Symptoms Immunologic: Reports: No Symptoms ED EXAM, GENERAL - Physical Exam Exam: See Below Exam Limited By: No Limitations General Appearance: Alert, WD/WN, No Apparent Distress, Anxious Eye Exam: Bilateral Eye: Normal Inspection, PERRL Ear Exam: Bilateral Ear: Auricle Normal, Canal Normal, TM normal Throat/Mouth: Normal Inspection, Normal Lips, Normal Teeth, Normal Gums, Normal Oropharynx, Normal Voice, No Airway Compromise Head: Atraumatic, Normocephalic Neck: Normal Inspection, Supple, Non-Tender, Full Range of Motion. No: Limited Range of Motion, Lymphadenopathy (R) Respiratory/Chest: No Respiratory Distress, Lungs Clear, Normal Breath Sounds, No Accessory Muscle Use, Chest Non-Tender. No: Respiratory Distress, Crackles, Rales, Rhonchi, Wheezing Cardiovascular: Normal Peripheral Pulses, Regular Rate, Rhythm, No Edema, No Gallop, No Murmur, No Rub Peripheral Pulses: 1+: Dorsalis Pedis (L), Dorsalis Pedis (R), 2+: Radial (L), Radial (R) Extremities: Normal Inspection, Normal Range of Motion, Non-Tender, No Pedal Edema, Normal Capillary Refill Neurological: Alert, Oriented, CN II-XII Intact, Normal Cognition, Normal Gait, Normal Reflexes, No Motor/Sensory Deficits Psychiatric: Normal Affect, Anxious, Tearful Skin Exam: Warm, Dry, Intact, Normal Color, No Rash Lymphatic: No Adenopathy Course - Vital Signs Last Recorded V/S: Last Vital Signs Temp 35.8 C 12/21/16 12:23 Pulse 92 12/21/16 12:23 Resp 22 H 12/21/16 12:23 BP 139/78 12/21/16 12:23 Pulse Ox 94 L 12/21/16 12:23 - Re-Assessments/Exams Free Text/Narrative Re-Assessment/Exam: 12/21/16 12:51 Discussion with patient about use of medication to treat underlying anxiety. Anderson was advised to follow up with his provider this week to discuss anxiety as well as see a counselor and behavioral health provider. I advised him to not take lorazepam with any other sedating medications. He denies suicidal ideation or plan and feels safe to go home. He can use lorazepam as directed. Departure - Departure Time of Disposition: 12:41 Disposition: DC/Tfer W/I Hosp To Swing 61 Condition: good Clinical Impression: Anxiety about health - Discharge Information Instructions: Panic Attacks Referrals: Vasquez Sands PA [Primary Care Provider] - Forms: ED Department Discharge Additional Instructions: You must follow up with your primary care provider this week to obtain more lorazepam for anxiety if needed. I would also suggest that you discuss the use of clonazepam with your provider as it is a longer acting medication and may assist with your symptoms better. Use of medication alone is not sufficient to manage anxiety. You must become established with a counselor and behavioral health to develop coping skills sufficient to assist you with your anxiety. Return at any time for worsening. Do not combine lorazepam with any other sedating medications such as opiates.
== END 2016-12-21 12:50 | disposition home or self-care (01) ==
LOC: JP.ED 11:50
DX: F41.8 Other specified anxiety disorders (principal); I25.2 Old myocardial infarction; I10 Essential (primary) hypertension; I25.10 Atherosclerotic heart disease of native coronary artery without angina pectoris; E78.00 Pure hypercholesterolemia, unspecified; J44.9 Chronic obstructive pulmonary disease, unspecified; F32.9 Major depressive disorder, single episode, unspecified; E11.9 Type 2 diabetes mellitus without complications; M19.90 Unspecified osteoarthritis, unspecified site; E66.9 Obesity, unspecified; Z68.42 Body mass index [BMI] 45.0-49.9, adult; Z85.46 Personal history of malignant neoplasm of prostate; Z79.82 Long term (current) use of aspirin; Z79.4 Long term (current) use of insulin; Z79.02 Long term (current) use of antithrombotics/antiplatelets; Z79.899 Other long term (current) drug therapy; Z95.5 Presence of coronary angioplasty implant and graft; Z87.01 Personal history of pneumonia (recurrent)
CPT/HCPCS: 99284

== ENCOUNTER 2016-12-31 11:24 | Emergency (ER) | payer MEDICAID ==
[2016-12-31 11:50] VITALS: BP 153/80
--- NOTE | 2016-12-31 12:57 | EDM.PDOC ---
[id number]: CHEST PAIN/TIGHTNESS Time Seen by Provider: 12/31/16 12:10 Source of Information: Reports: Patient History Limitations: Reports: No Limitations - History of Present Illness INITIAL COMMENTS - FREE TEXT/NARRATIVE: 61-year-old male in with dyspnea and intermittent chest discomfort. He went over to the urgent care clinic and they sent him over here. He just finished an antibiotic for bronchitis, he ran out of Ativan 2 days ago which is the real reason I think he is here. His O2 saturations are normal, no increased respiratory rate, no fever. Onset: Gradual (For the last several days after running out of Ativan) Bilateral Thoracic Pain Score (Numeric/FACES): 6 - Related Data Allergies Allergy/AdvReac Type Severity Reaction Status Date / Time No Known Allergies Allergy Verified 12/31/16 12:04 Home Meds: Home Meds Albuterol [Ventolin HFA] 1 - 2 puff INH ASDIRECTED PRN 09/23/14 [History] Insulin Aspart [NovoLOG] 20 unit SQ TID 09/23/14 [History] Insulin Detemir [Levemir] 60 units SQ BID 09/23/14 [History] Sertraline HCl [Zoloft] 300 mg PO DAILY 09/23/14 [History] Tiotropium [Spiriva HandiHaler] 1 tab INH DAILY 09/23/14 [History] Aspirin [Low Dose Aspirin EC] 81 mg PO DAILY 01/11/15 [History] Fenofibrate Nanocrystallized [Tricor] 96 mg PO DAILY 01/11/15 [History] LORazepam [Ativan] 1 mg PO TID PRN 01/11/15 [History] atorvaSTATin [Lipitor] 80 mg PO BEDTIME 01/11/15 [History] Sucralfate [Carafate] 1 g PO QID #120 tablet 06/27/15 [Rx] amLODIPine [Norvasc] 2.5 mg PO DAILY 12/21/15 [History] Furosemide 40 mg PO ASDIRECTED 04/24/16 [History] Nitroglycerin [Nitrostat] 0.4 mg PO ASDIRECTED PRN 04/24/16 [History] Ondansetron [Zofran ODT] 8 mg PO ASDIRECTED PRN 04/24/16 [History] Tamsulosin [Flomax] 0.4 mg PO DAILY 04/24/16 [History] Dulaglutide [Trulicity] 0.75 mg SQ WEEKLY 06/12/16 [History] Cyclobenzaprine [Flexeril] 5 mg PO BID PRN 08/10/16 [History] Ergocalciferol (Vitamin D2) [Vitamin D2] 50,000 units PO ASDIRECTED 08/10/16 [ History] Trolamine Salicylate/Aloe Vera [Aspercreme 10%] 1 applic TOP ASDIRECTED PRN [History] ARIPiprazole [Abilify] 5 mg PO DAILY 11/09/16 [History] Metoprolol Tartrate 50 mg PO BID 11/28/16 [History] Codeine/guaiFENesin [Robitussin AC] 10 ml PO Q4H PRN #240 bottle 11/29/16 [Rx] Digoxin 250 mcg PO DAILY 11/29/16 [History] Lisinopril 40 mg PO DAILY 11/29/16 [History] Omeprazole 20 mg PO BID 11/29/16 [History] QUEtiapine Fumarate [Quetiapine Fumarate] 800 mg PO BEDTIME 11/29/16 [History] Clopidogrel Bisulfate [Plavix] 75 mg PO DAILY 12/09/16 [History] Bicalutamide [Bicalutamide] 50 mg PO DAILY 12/31/16 [History] Past Medical History HEENT History: Reports: Hard of Hearing Other HEENT History: also C/O neck pain Cardiovascular History: Reports: CAD, Heart Murmur, High Cholesterol, Hypertension, [place], Other (See Below) Other Cardiovascular History: stents placed Respiratory History: Reports: COPD, Pneumonia, Recurrent, SOB, Other (See Below) Other Respiratory History: emphysema, sob with exertion Gastrointestinal History: Reports: Chronic Diarrhea, PUD Other Gastrointestinal History: Fatty Liver Genitourinary History: Reports: Prostate Disorder, Other (See Below) Other Genitourinary History: prostate cancer. nodule or cyst/tumor found on right kidney december 2016 Musculoskeletal History: Reports: Back Pain, Chronic, Osteoarthritis Neurological History: Reports: Other (See Below) Other Neuro History: [place] palsy Psychiatric History: Reports: Anxiety, Depression Other Psychiatric History: Grief, Insomnia Endocrine/Metabolic History: Reports: Diabetes, Type II, IDDM, Obesity/BMI 30+ Oncologic (Cancer) History: Reports: Prostate - Infectious Disease History Infectious Disease History: Reports: Influenza Other Infectious Disease History: unknown to patient - Past Surgical History Cardiovascular Surgical History: Reports: Coronary Artery Stent GI Surgical History: Reports: Cholecystectomy Social & Family History - Family History Family Medical History: Unobtainable Cardiac: Reports: High Cholesterol, Hypertension, Other (See Below) Other Cardiac Family History: Heart Disease Respiratory: Reports: COPD Neurological: Reports: CVA Psychiatric: Reports: Depression Endocrine/Metabolic: Reports: Diabetes, type II Oncologic: Reports: Pancreatic, Renal - Tobacco Use Smoking Status *Q: Former Smoker Years of Tobacco use: 48 Packs/Tins Daily: 1 Used Tobacco, but Quit: Yes Month Tobacco Last Used: december 2014 Second Hand Smoke Exposure: No - Caffeine Use Caffeine Use: Reports: Coffee - Alcohol Use Days Per Week of Alcohol Use: 0 - Recreational Drug Use Recreational Drug Use: No ED ROS GENERAL - Review of Systems Review Of Systems: See Below Constitutional: Denies: Fever, Chills Respiratory: Reports: Shortness of Breath (This patient with activity) Cardiovascular: Reports: Chest Pain (Intermittent, waxing and waning) : Reports: No Symptoms ( Recently diagnosed with prostate cancer, treatment pending), Other Skin: Reports: No Symptoms Psychiatric: Reports: Anxiety ED EXAM, GENERAL - Physical Exam Exam: See Below Exam Limited By: No Limitations General Appearance: Alert, Anxious Respiratory/Chest: No Respiratory Distress, Lungs Clear Cardiovascular: Regular Rate, Rhythm GI/Abdominal: Other (Morbidly obese, nontender) Course - Vital Signs Last Recorded V/S: Last Vital Signs Temp 97.9 F 12/31/16 12:13 Pulse 87 12/31/16 12:13 Resp 17 12/31/16 12:13 BP 153/80 H 12/31/16 12:13 Pulse Ox 94 L 12/31/16 12:13 - Re-Assessments/Exams Free Text/Narrative Re-Assessment/Exam: 12/31/16 13:02 Two-view chest x-ray is normal and stable for this patient. He was supplied with 10 additional doses of Ativan to take twice a day, his next recheck is 2 days from now to refill his medications. Departure - Departure Time of Disposition: 13:21 Disposition: Home, Self-Care 01 Condition: good Clinical Impression: Anxiety about health Dyspnea Qualifiers: Dyspnea type: unspecified Qualified Code(s): R06.00 - Dyspnea, unspecified - Discharge Information Instructions: Shortness of Breath, [id number] Referrals: Vasquez Sands PA [Primary Care Provider] - Forms: ED Department Discharge Care Plan Goals: Continue your medications as prescribed. Recheck on as scheduled. Return sooner if worsening pain, shortness of breath, or other concerns.
--- NOTE | 2016-12-31 13:00 | CR ---
Chest 2V INDICATION: dyspnea FINDINGS: Comparison 12/09/2016. Relatively shallow inspiration. No focal infiltrate or pleural effus ion. Hypertrophic changes thoracic spine. Chest otherwise negative.
== END 2016-12-31 13:20 | disposition home or self-care (01) ==
LOC: JP.ED 11:24
DX: R06.00 Dyspnea, unspecified (principal); I25.10 Atherosclerotic heart disease of native coronary artery without angina pectoris; E78.00 Pure hypercholesterolemia, unspecified; I10 Essential (primary) hypertension; I25.2 Old myocardial infarction; J44.9 Chronic obstructive pulmonary disease, unspecified; F41.9 Anxiety disorder, unspecified; F32.9 Major depressive disorder, single episode, unspecified; Z95.5 Presence of coronary angioplasty implant and graft; Z87.891 Personal history of nicotine dependence; Z79.4 Long term (current) use of insulin; Z79.82 Long term (current) use of aspirin
CPT/HCPCS: 71020; 71020-26; 99285

== ENCOUNTER 2017-01-16 01:20 | Emergency (ER) | payer MEDICAID ==
[2017-01-16 01:27] VITALS: BP 116/58
[2017-01-16] MEDS ORDERED: LORazepam 1 MG Tab PO ONE (01:50)
--- NOTE | 2017-01-16 03:40 | EDM.PDOC ---
ED HPI GENERAL MEDICAL PROBLEM - General Chief Complaint: General Stated Complaint: MEDICAL [facility]IA [facility] Time Seen by Provider: 01/16/17 01:45 Source of Information: Reports: Patient History Limitations: Reports: No Limitations - History of Present Illness INITIAL COMMENTS - FREE TEXT/NARRATIVE: History of present illness: [This 61-year-old male presented by ambulance with concerns about his blood pressure. He was at a motel and got up to adjust the temperature on the air conditioner and then somehow felt like his blood pressure was running high and called the ambulance. Patient apparently has a history of anxiety and usually has Ativan available 1 mg 3 times a day but he ran out about 10 days ago. Is having no chest pain or shortness of breath he's had no cough cold symptoms fevers or chills.] Review of systems: As per history of present illness and below otherwise all systems reviewed and negative. Past medical history: As per history of present illness and as reviewed below otherwise noncontributory. Surgical history: As per history of present illness and as reviewed below otherwise noncontributory. Social history: No reported history of drug or alcohol abuse. Family history: As per history of present illness and as reviewed below otherwise noncontributory. Physical exam: HEENT: Atraumatic, normocephalic, pupils reactive, negative for conjunctival pallor or scleral icterus, mucous membranes moist, throat clear, neck supple, nontender, trachea midline. Lungs: Clear to auscultation, breath sounds equal bilaterally, chest nontender. Heart: S1S2, regular, negative for clicks, rubs, or JVD. Abdomen: Soft, nondistended, nontender. Negative for masses or hepatosplenomegaly. Negative for costovertebral tenderness. Pelvis: Stable nontender. Genitourinary: Deferred. Rectal: Deferred. Extremities: Atraumatic, negative for cords or calf pain. Neurovascular unremarkable. Neuro: Awake, alert, oriented. Cranial nerves II through XII unremarkable. Cerebellum unremarkable. Motor and sensory unremarkable throughout. Exam nonfocal. Diagnostics: [His blood pressure here was well controlled and well within an acceptable range.] Therapeutics: [Patient did appear somewhat anxious and was given 1 mg of Ativan and fell asleep.] Impression: [Blood pressure concerns Anxiety ] Plan: [I gave him a prescription for Ativan 1 mg 3 times a day when necessary for anxiety #20 and he should follow-up with his primary for more of these.] Definitive disposition and diagnosis as appropriate pending reevaluation and review of above. - Related Data Allergies Allergy/AdvReac Type Severity Reaction Status Date / Time No Known Allergies Allergy Verified 12/31/16 12:04 Home Meds: Home Meds Albuterol [Ventolin HFA] 1 - 2 puff INH ASDIRECTED PRN 09/23/14 [History] Insulin Aspart [NovoLOG] 20 unit SQ TID 09/23/14 [History] Insulin Detemir [Levemir] 60 units SQ BID 09/23/14 [History] Sertraline HCl [Zoloft] 300 mg PO DAILY 09/23/14 [History] Tiotropium [Spiriva HandiHaler] 1 tab INH DAILY 09/23/14 [History] Aspirin [Low Dose Aspirin EC] 81 mg PO DAILY 01/11/15 [History] Fenofibrate Nanocrystallized [Tricor] 96 mg PO DAILY 01/11/15 [History] LORazepam [Ativan] 1 mg PO TID PRN 01/11/15 [History] atorvaSTATin [Lipitor] 80 mg PO BEDTIME 01/11/15 [History] Sucralfate [Carafate] 1 g PO QID #120 tablet 06/27/15 [Rx] amLODIPine [Norvasc] 2.5 mg PO DAILY 12/21/15 [History] Furosemide 40 mg PO ASDIRECTED 04/24/16 [History] Nitroglycerin [Nitrostat] 0.4 mg PO ASDIRECTED PRN 04/24/16 [History] Ondansetron [Zofran ODT] 8 mg PO ASDIRECTED PRN 04/24/16 [History] Tamsulosin [Flomax] 0.4 mg PO DAILY 04/24/16 [History] Dulaglutide [Trulicity] 0.75 mg SQ WEEKLY 06/12/16 [History] Cyclobenzaprine [Flexeril] 5 mg PO BID PRN 08/10/16 [History] Ergocalciferol (Vitamin D2) [Vitamin D2] 50,000 units PO ASDIRECTED 08/10/16 [ History] Trolamine Salicylate/Aloe Vera [Aspercreme 10%] 1 applic TOP ASDIRECTED PRN [History] ARIPiprazole [Abilify] 5 mg PO DAILY 11/09/16 [History] Metoprolol Tartrate 50 mg PO BID 11/28/16 [History] Codeine/guaiFENesin [Robitussin AC] 10 ml PO Q4H PRN #240 bottle 11/29/16 [Rx] Digoxin 250 mcg PO DAILY 11/29/16 [History] Lisinopril 40 mg PO DAILY 11/29/16 [History] Omeprazole 20 mg PO BID 11/29/16 [History] QUEtiapine Fumarate [Quetiapine Fumarate] 800 mg PO BEDTIME 11/29/16 [History] Clopidogrel Bisulfate [Plavix] 75 mg PO DAILY 12/09/16 [History] Bicalutamide [Bicalutamide] 50 mg PO DAILY 12/31/16 [History] Past Medical History HEENT History: Reports: Hard of Hearing Other HEENT History: also C/O neck pain Cardiovascular History: Reports: CAD, Heart Murmur, High Cholesterol, Hypertension, [place], Other (See Below) Other Cardiovascular History: stents placed Respiratory History: Reports: COPD, Pneumonia, Recurrent, SOB, Other (See Below) Other Respiratory History: emphysema, sob with exertion Gastrointestinal History: Reports: Chronic Diarrhea, PUD Other Gastrointestinal History: Fatty Liver Genitourinary History: Reports: Prostate Disorder, Other (See Below) Other Genitourinary History: prostate cancer. nodule or cyst/tumor found on right kidney december 2016 Musculoskeletal History: Reports: Back Pain, Chronic, Osteoarthritis Neurological History: Reports: Other (See Below) Other Neuro History: [place] palsy Psychiatric History: Reports: Anxiety, Depression, Panic Attack Other Psychiatric History: Grief, Insomnia Endocrine/Metabolic History: Reports: Diabetes, Type II, IDDM, Obesity/BMI 30+ Oncologic (Cancer) History: Reports: Prostate - Infectious Disease History Infectious Disease History: Reports: Influenza Other Infectious Disease History: unknown to patient - Past Surgical History Cardiovascular Surgical History: Reports: Coronary Artery Stent GI Surgical History: Reports: Cholecystectomy Social & Family History - Family History Family Medical History: Unobtainable Cardiac: Reports: High Cholesterol, Hypertension, Other (See Below) Other Cardiac Family History: Heart Disease Respiratory: Reports: COPD Neurological: Reports: CVA Psychiatric: Reports: Depression Endocrine/Metabolic: Reports: Diabetes, type II Oncologic: Reports: Pancreatic, Renal - Tobacco Use Smoking Status *Q: Former Smoker Years of Tobacco use: 48 Packs/Tins Daily: 1 Used Tobacco, but Quit: Yes Month Tobacco Last Used: 68 Second Hand Smoke Exposure: No - Caffeine Use Caffeine Use: Reports: Coffee, Soda - Alcohol Use Days Per Week of Alcohol Use: 0 - Recreational Drug Use Recreational Drug Use: No ED ROS GENERAL - Review of Systems Review Of Systems: ROS reveals no pertinent complaints other than HPI. ED EXAM, GENERAL - Physical Exam Exam: See Below Course - Vital Signs Last Recorded V/S: Last Vital Signs Temp 36 C 01/16/17 01:27 Pulse 79 01/16/17 01:27 Resp 20 01/16/17 01:27 BP 116/58 L 01/16/17 01:27 Pulse Ox 94 L 01/16/17 01:27 - Orders/Labs/Meds Meds: Medications Discontinued Medications Generic Name Dose Route Start Last Admin Trade Name Freq PRN Reason Stop Dose Admin Lorazepam 1 mg 01/16/17 01:50 01/16/17 01:56 Ativan PO 01/16/17 01:51 1 mg ONETIME ONE Administration Departure - Departure Time of Disposition: 03:38 Disposition: Home, Self-Care 01 Condition: Good Clinical Impression: Anxiety Hypertension Qualifiers: Hypertension type: essential hypertension Qualified Code(s): I10 - Essential ( primary) hypertension - Discharge Information Forms: ED Department Discharge Additional Instructions: Please follow-up with your primary care doctor to get more of your Ativan or any other medications that you may be running low on.
== END 2017-01-16 04:00 | disposition home or self-care (01) ==
LOC: JP.ED 01:20
DX: I10 Essential (primary) hypertension (principal); F41.9 Anxiety disorder, unspecified; I25.10 Atherosclerotic heart disease of native coronary artery without angina pectoris; E78.00 Pure hypercholesterolemia, unspecified; I25.2 Old myocardial infarction; E11.9 Type 2 diabetes mellitus without complications; E66.9 Obesity, unspecified; J44.9 Chronic obstructive pulmonary disease, unspecified; F32.9 Major depressive disorder, single episode, unspecified; M19.90 Unspecified osteoarthritis, unspecified site; Z87.891 Personal history of nicotine dependence; Z90.49 Acquired absence of other specified parts of digestive tract; Z95.5 Presence of coronary angioplasty implant and graft; Z79.899 Other long term (current) drug therapy; Z79.4 Long term (current) use of insulin; Z79.82 Long term (current) use of aspirin
CPT/HCPCS: 99283; A9270

== ENCOUNTER 2017-02-06 17:21 | Emergency (ER) | payer MEDICAID ==
[2017-02-06 17:27] VITALS: BP 113/66
--- NOTE | 2017-02-06 18:47 | EDM.PDOC ---
ED HPI GENERAL MEDICAL PROBLEM - General Chief Complaint: General Stated Complaint: MED [facility]IA [facility] Time Seen by Provider: 02/06/17 18:06 Source of Information: Reports: Patient History Limitations: Reports: No Limitations - History of Present Illness INITIAL COMMENTS - FREE TEXT/NARRATIVE: History of present illness: [This 61-year-old male is someone if seen several times before. He was in [place] and saw a "kidney doctor" told him he didn't have cancer and so he is happy about that. No change was made in his medications no additions were made to his medications. He went home and is relaxing and wasn't feeling quite right so he took his blood pressure and he got a low reading and so we called the ambulance and came in. Now is feeling fine. I visited with him for a while and finally I think I figured out why he is here. He alleges that his Ativan went to the wash and that he is not able to get any Ativan for another week. He states that he's talked to the pharmacist and is Dr. and known is giving him any and he's been without for 1 week. He states he's having a lot of issues in his family right now and anxiety and panic attacks and that it's been very hard for him to be without his Ativan. I explained to him that if something like that happens he needs to save the bottle and bring it into his doctor and show evidence that it actually happened and he might have more success in getting an early refill. ] Review of systems: As per history of present illness and below otherwise all systems reviewed and negative. Past medical history: As per history of present illness and as reviewed below otherwise noncontributory. Surgical history: As per history of present illness and as reviewed below otherwise noncontributory. Social history: No reported history of drug or alcohol abuse. Family history: As per history of present illness and as reviewed below otherwise noncontributory. Physical exam: General: He is pleasant and conversant and in no acute distress Lungs: Clear to auscultation Heart: S1S2, regular Neuro: Awake, alert, oriented. Exam nonfocal. Diagnostics: [] Therapeutics: [] Impression: [Anxiety] Plan: [I'm providing him with 10 Ativan 1 mg. Dosage instructions one by mouth twice a day when necessary. This is to get him by until the . Knowing this gentleman it is likely that he may return to the emergency room and use medical services inappropriately until he does get help and so I chosen to do this to try to minimize the financial burden this would impose upon our already stretched resources.] Definitive disposition and diagnosis as appropriate pending reevaluation and review of above. Right Lower Flank Pain Score (Numeric/FACES): 4 - Related Data Allergies Allergy/AdvReac Type Severity Reaction Status Date / Time No Known Allergies Allergy Verified 02/06/17 17:27 Home Meds: Home Meds Albuterol [Ventolin HFA] 1 - 2 puff INH ASDIRECTED PRN 09/23/14 [History] Insulin Aspart [NovoLOG] 10 - 30 unit SQ TID 09/23/14 [History] Insulin Detemir [Levemir] 60 units SQ BID 09/23/14 [History] Sertraline HCl [Zoloft] 300 mg PO DAILY 09/23/14 [History] Tiotropium [Spiriva HandiHaler] 1 tab INH DAILY 09/23/14 [History] Aspirin [Low Dose Aspirin EC] 81 mg PO DAILY 01/11/15 [History] Fenofibrate Nanocrystallized [Tricor] 96 mg PO DAILY 01/11/15 [History] LORazepam [Ativan] 1 mg PO TID PRN 01/11/15 [History] atorvaSTATin [Lipitor] 80 mg PO BEDTIME 01/11/15 [History] Sucralfate [Carafate] 1 g PO QID #120 tablet 06/27/15 [Rx] Furosemide 20 mg PO DAILY 04/24/16 [History] Nitroglycerin [Nitrostat] 0.4 mg PO ASDIRECTED PRN 04/24/16 [History] Ondansetron [Zofran ODT] 8 mg PO ASDIRECTED PRN 04/24/16 [History] Tamsulosin [Flomax] 0.4 mg PO DAILY 04/24/16 [History] Dulaglutide [Trulicity] 0.75 mg SQ WEEKLY 06/12/16 [History] Cyclobenzaprine [Flexeril] 10 mg PO TID 08/10/16 [History] ARIPiprazole [Abilify] 5 mg PO DAILY 11/09/16 [History] Metoprolol Tartrate 50 mg PO BID 11/28/16 [History] Clopidogrel Bisulfate [Plavix] 75 mg PO DAILY 12/09/16 [History] Cholecalciferol (Vitamin D3) [Vitamin D3] 2,000 tab PO DAILY 02/06/17 [History] Fluticasone Propionate [Flovent HFA 110 MCG] 2 puff INH BID 02/06/17 [History] Lisinopril 1 tab PO DAILY 02/06/17 [History] Pantoprazole Sodium 1 tab PO DAILY 02/06/17 [History] QUEtiapine [SEROquel] 1 tab PO BEDTIME 02/06/17 [History] guaiFENesin [Guaifenesin] 2 tab PO Q8H PRN 02/06/17 [History] Past Medical History HEENT History: Reports: Hard of Hearing Other HEENT History: also C/O neck pain Cardiovascular History: Reports: CAD, Heart Murmur, High Cholesterol, Hypertension, [place], Other (See Below) Other Cardiovascular History: stents placed Respiratory History: Reports: COPD, Pneumonia, Recurrent, SOB, Other (See Below) Other Respiratory History: emphysema, sob with exertion Gastrointestinal History: Reports: Chronic Diarrhea, PUD Other Gastrointestinal History: Fatty Liver Genitourinary History: Reports: Prostate Disorder, Other (See Below) Other Genitourinary History: prostate cancer. nodule or cyst/tumor found on right kidney december 2016 Musculoskeletal History: Reports: Back Pain, Chronic, Osteoarthritis Neurological History: Reports: Other (See Below) Other Neuro History: [place] palsy Psychiatric History: Reports: Anxiety, Depression, Panic Attack Other Psychiatric History: Grief, Insomnia Endocrine/Metabolic History: Reports: Diabetes, Type II, IDDM, Obesity/BMI 30+ Oncologic (Cancer) History: Reports: Prostate - Infectious Disease History Infectious Disease History: Reports: Influenza Other Infectious Disease History: unknown to patient - Past Surgical History Cardiovascular Surgical History: Reports: Coronary Artery Stent GI Surgical History: Reports: Cholecystectomy Social & Family History - Family History Family Medical History: Unobtainable Cardiac: Reports: High Cholesterol, Hypertension, Other (See Below) Other Cardiac Family History: Heart Disease Respiratory: Reports: COPD Neurological: Reports: CVA Psychiatric: Reports: Depression Endocrine/Metabolic: Reports: Diabetes, type II Oncologic: Reports: Pancreatic, Renal - Tobacco Use Smoking Status *Q: Never Smoker Years of Tobacco use: 48 Packs/Tins Daily: 1 Used Tobacco, but Quit: Yes Month Tobacco Last Used: 67 Second Hand Smoke Exposure: No - Caffeine Use Caffeine Use: Reports: Coffee, Soda - Alcohol Use Days Per Week of Alcohol Use: 0 - Recreational Drug Use Recreational Drug Use: No ED ROS GENERAL - Review of Systems Review Of Systems: ROS reveals no pertinent complaints other than HPI. ED EXAM, GENERAL - Physical Exam Exam: See Below Course - Vital Signs Last Recorded V/S: Last Vital Signs Temp 36.4 C 02/06/17 17:24 Pulse 81 02/06/17 17:24 Resp 25 H 02/06/17 17:24 BP 113/66 02/06/17 17:24 Pulse Ox 95 02/06/17 17:24 Departure - Departure Time of Disposition: 18:47 Disposition: Home, Self-Care 01 Condition: Good Clinical Impression: Anxiety - Discharge Information Forms: ED Department Discharge Additional Instructions: I have provided you with 10 1 mg Ativan tablets. Please try to make these stretch until you can get your refill on the .
== END 2017-02-06 19:02 | disposition home or self-care (01) ==
LOC: JP.ED 17:21
DX: F41.9 Anxiety disorder, unspecified (principal); I25.10 Atherosclerotic heart disease of native coronary artery without angina pectoris; E11.9 Type 2 diabetes mellitus without complications; I25.2 Old myocardial infarction; E78.00 Pure hypercholesterolemia, unspecified; I10 Essential (primary) hypertension; E66.9 Obesity, unspecified; F32.9 Major depressive disorder, single episode, unspecified; Z95.5 Presence of coronary angioplasty implant and graft; Z90.49 Acquired absence of other specified parts of digestive tract; Z79.4 Long term (current) use of insulin; Z79.899 Other long term (current) drug therapy
CPT/HCPCS: 99283

== ENCOUNTER 2017-02-27 07:38 | Emergency (ER) | payer MEDICAID ==
[2017-02-27] MEDS ORDERED: Ondansetron 4 MG/2 ML SDV IVPUSH ONE (08:27)
[2017-02-27] MEDS ORDERED: Sodium Chloride 0.9% 10 ML Syringe FLUSH PRN (08:27)
[2017-02-27] MEDS ORDERED: Famotidine 20 MG Tab PO ONE (08:57)
--- NOTE | 2017-02-27 09:54 | EDM.PDOC ---
ED HPI GENERAL MEDICAL PROBLEM - General Chief Complaint: Abdominal Pain Stated Complaint: ABD PAIN/HIGH BP Time Seen by Provider: 02/27/17 08:00 Source of Information: Reports: Patient History Limitations: Reports: No Limitations - History of Present Illness INITIAL COMMENTS - FREE TEXT/NARRATIVE: pt has just started radiation for Ca of the prostate. He was very nauseated and had low grade pain in his stomach--epigastric. His bms have been normal. He has not vomited. He thinks the radiation is causing some problems for him. Onset: Today Duration: Hour(s):, Getting Worse Location: Reports: Abdomen Associated Symptoms: Reports: Nausea/Vomiting Upper Abdomen Pain Score (Numeric/FACES): 6 - Related Data Allergies Allergy/AdvReac Type Severity Reaction Status Date / Time No Known Allergies Allergy Verified 02/27/17 08:15 Home Meds: Home Meds Albuterol [Ventolin HFA] 1 - 2 puff INH ASDIRECTED PRN 09/23/14 [History] Insulin Aspart [NovoLOG] 10 - 30 unit SQ TID 09/23/14 [History] Insulin Detemir [Levemir] 60 units SQ BID 09/23/14 [History] Sertraline HCl [Zoloft] 300 mg PO DAILY 09/23/14 [History] Tiotropium [Spiriva HandiHaler] 1 tab INH DAILY 09/23/14 [History] Aspirin [Low Dose Aspirin EC] 81 mg PO DAILY 01/11/15 [History] Fenofibrate Nanocrystallized [Tricor] 96 mg PO DAILY 01/11/15 [History] LORazepam [Ativan] 1 mg PO TID PRN 01/11/15 [History] atorvaSTATin [Lipitor] 80 mg PO BEDTIME 01/11/15 [History] Sucralfate [Carafate] 1 g PO QID #120 tablet 06/27/15 [Rx] Furosemide 20 mg PO DAILY 04/24/16 [History] Nitroglycerin [Nitrostat] 0.4 mg PO ASDIRECTED PRN 04/24/16 [History] Ondansetron [Zofran ODT] 8 mg PO ASDIRECTED PRN 04/24/16 [History] Tamsulosin [Flomax] 0.4 mg PO DAILY 04/24/16 [History] Dulaglutide [Trulicity] 0.75 mg SQ WEEKLY 06/12/16 [History] Cyclobenzaprine [Flexeril] 10 mg PO TID 08/10/16 [History] ARIPiprazole [Abilify] 5 mg PO DAILY 11/09/16 [History] Metoprolol Tartrate 50 mg PO BID 11/28/16 [History] Clopidogrel Bisulfate [Plavix] 75 mg PO DAILY 12/09/16 [History] Cholecalciferol (Vitamin D3) [Vitamin D3] 2,000 tab PO DAILY 02/06/17 [History] Fluticasone Propionate [Flovent HFA 110 MCG] 2 puff INH BID 02/06/17 [History] Lisinopril 1 tab PO DAILY 02/06/17 [History] Pantoprazole Sodium 1 tab PO DAILY 02/06/17 [History] QUEtiapine [SEROquel] 1 tab PO BEDTIME 02/06/17 [History] guaiFENesin [Guaifenesin] 2 tab PO Q8H PRN 02/06/17 [History] Past Medical History HEENT History: Reports: Hard of Hearing Other HEENT History: also C/O neck pain Cardiovascular History: Reports: CAD, Heart Murmur, High Cholesterol, Hypertension, NM, Other (See Below) Other Cardiovascular History: stents placed Respiratory History: Reports: COPD, Pneumonia, Recurrent, SOB, Other (See Below) Other Respiratory History: emphysema, sob with exertion Gastrointestinal History: Reports: Chronic Diarrhea, PUD Other Gastrointestinal History: Fatty Liver Genitourinary History: Reports: Prostate Disorder, Other (See Below) Other Genitourinary History: prostate cancer. nodule or cyst/tumor found on right kidney december 2016 Musculoskeletal History: Reports: Back Pain, Chronic, Osteoarthritis Neurological History: Reports: Other (See Below) Other Neuro History: [place] palsy Psychiatric History: Reports: Anxiety, Depression, Panic Attack Other Psychiatric History: Insomnia Endocrine/Metabolic History: Reports: Diabetes, Type II, IDDM, Obesity/BMI 30+ Oncologic (Cancer) History: Reports: Prostate - Infectious Disease History Infectious Disease History: Reports: Influenza Other Infectious Disease History: unknown to patient - Past Surgical History Cardiovascular Surgical History: Reports: Coronary Artery Stent GI Surgical History: Reports: Cholecystectomy Social & Family History - Family History Family Medical History: Unobtainable Cardiac: Reports: High Cholesterol, Hypertension, Other (See Below) Other Cardiac Family History: Heart Disease Respiratory: Reports: COPD Neurological: Reports: CVA Psychiatric: Reports: Depression Endocrine/Metabolic: Reports: Diabetes, type II Oncologic: Reports: Pancreatic, Renal - Tobacco Use Smoking Status *Q: Former Smoker Years of Tobacco use: 48 Packs/Tins Daily: 1 Used Tobacco, but Quit: Yes Month Tobacco Last Used: 0 Second Hand Smoke Exposure: No - Caffeine Use Caffeine Use: Reports: Coffee, Soda - Alcohol Use Days Per Week of Alcohol Use: 0 - Recreational Drug Use Recreational Drug Use: No ED ROS GENERAL - Review of Systems Review Of Systems: See Below Constitutional: Reports: No Symptoms HEENT: Reports: No Symptoms Respiratory: Reports: No Symptoms Cardiovascular: Reports: No Symptoms Endocrine: Reports: No Symptoms GI/Abdominal: Reports: Abdominal Pain, Other (pt has low grade mid abdomanal pain. He has had his GB removed. ) : Reports: No Symptoms Musculoskeletal: Reports: No Symptoms Skin: Reports: No Symptoms ED EXAM, GI/ABD - Physical Exam Exam: See Below Text/Narrative:: pt was very nauseated. He has not vomited. He has mild mid abdomanal pain Exam Limited By: No Limitations General Appearance: Alert, Mild Distress Ears: Normal TMs Nose: Normal Inspection Throat/Mouth: Normal Inspection Head: Atraumatic Neck: Normal Inspection Respiratory/Chest: No Respiratory Distress Cardiovascular: Regular Rate, Rhythm GI/Abdominal Exam: Soft, Other ( mild mid abdomanal tenderness. ) Rectal (Males) Exam: Deferred Back Exam: Normal Inspection Extremities: Normal Inspection Neurological: Alert, Oriented, Normal Cognition Psychiatric: Normal Affect Course - Vital Signs Last Recorded V/S: Last Vital Signs Temp 36.6 C 02/27/17 08:13 Pulse 68 02/27/17 08:54 Resp 18 02/27/17 08:54 BP 132/76 02/27/17 08:54 Pulse Ox 94 L 02/27/17 08:54 - Orders/Labs/Meds Orders: Active Orders 24 hr Category Date Time Status Sodium Chloride 0.9% [Saline Flush] Med 02/27/17 08:27 Active 10 ml FLUSH ASDIRECTED PRN Saline Lock Insert [OM.PC] Routine Oth 02/27/17 08:27 Ordered Medication Orders Sodium Chloride (Saline Flush) 10 ml FLUSH ASDIRECTED PRN PRN Reason: Keep Vein Open Last Admin: 02/27/17 08:53 Dose: 10 ml Labs: Laboratory Tests 02/27/17 02/27/17 02/27/17 Range/Units 08:30 08:30 08:59 WBC 10.4 (4.5-11.0) K/uL RBC 4.97 (4.30-5.90) M/uL Hgb 13.2 (12.0-15.0) g/dL Hct 39.6 L (40.0-54.0) % MCV 80 (80-98) fL MCH 27 (27-31) pg MCHC 33 (32-36) % Plt Count 267 (150-400) K/uL Neut % (Auto) 71 H (36-66) % Lymph % (Auto) 19 L (24-44) % [place] % (Auto) 7 H (2-6) % Eos % (Auto) 3 (2-4) % Baso % (Auto) 1 (0-1) % Sodium 139 L (140-148) mmol/L Potassium 4.8 (3.6-5.2) mmol/L Chloride 101 (100-108) mmol/L Carbon Dioxide 29 (21-32) mmol/L Anion Gap 13.8 (5.0-14.0) mmol/L BUN 21 H (7-18) mg/dL Creatinine 1.3 (0.8-1.3) mg/dL Est Cr Clr Drug Dosing 60.83 mL/min Estimated GFR (MDRD) 56 L (>60) Glucose 232 H (74-106) mg/dL Calcium 8.9 (8.5-10.1) mg/dL Total Bilirubin 0.3 (0.2-1.0) mg/dL AST 25 (15-37) U/L ALT 22 (12-78) U/L Alkaline Phosphatase 89 (46-116) U/L Total Protein 8.3 H (6.4-8.2) g/dL Albumin 3.7 (3.4-5.0) g/dL Globulin 4.6 H (2.3-3.5) g/dL Albumin/Globulin Ratio 0.8 L (1.2-2.2) Amylase 26 (25-115) U/L Lipase 99 (73-393) U/L Urine Color Yellow Urine Appearance Clear Urine pH 5.0 (4.5-8.0) Ur Specific [place] 1.015 (1.008-1.030) Urine Protein Negative (NEGATIVE) mg/dL Urine Glucose (UA) 100 H (NEGATIVE) mg/dL Urine Ketones Negative (NEGATIVE) mg/dL Urine Occult Blood Negative (NEGATIVE) Urine Nitrite Negative (NEGAITVE) Urine Bilirubin Negative (NEGATIVE) Urine Urobilinogen Normal (NORMAL) mg/dL Ur Leukocyte Esterase Negative (NEGATIVE) Urine RBC Not seen (0-5) Urine WBC Not seen (0-5) Ur Epithelial Cells Not seen Amorphous Sediment Not seen Urine Bacteria Not seen Urine Mucus Not seen Meds: Medications Generic Name Dose Route Start Last Admin Trade Name Freq PRN Reason Stop Dose Admin Sodium Chloride 10 ml 02/27/17 08:27 02/27/17 08:53 Saline Flush FLUSH 10 ml ASDIRECTED PRN Administration Keep Vein Open Discontinued Medications Generic Name Dose Route Start Last Admin Trade Name Freq PRN Reason Stop Dose Admin Famotidine 20 mg 02/27/17 08:57 Pepcid PO 02/27/17 08:58 ONETIME ONE Ondansetron HCl 4 mg 02/27/17 08:27 02/27/17 08:53 Zofran IVPUSH 02/27/17 08:28 4 mg ONETIME ONE Administration - Re-Assessments/Exams Free Text/Narrative Re-Assessment/Exam: 02/27/17 09:55 pt was given zoforan 4mg iv and pepcid 20mg . He is doing much better the nausea has passed and he is not having pain. He feels good enough to leave. he will havw radiation at 4 pm today in [place]. Departure - Departure Time of Disposition: 09:56 Disposition: Home, Self-Care 01 Condition: Fair Clinical Impression: Radiation adverse effect - Discharge Information Forms: ED Department Discharge Care Plan Goals: cont same meds, pepcid 20mg bid, rtc if problems. Go to radiation as usual. - My Orders Last 24 Hours: My Active Orders 02/27/17 08:27 Sodium Chloride 0.9% [Saline Flush] 10 ml FLUSH ASDIRECTED PRN Saline Lock Insert [OM.PC] Routine - Assessment/Plan Last 24 Hours: My Active Orders 02/27/17 08:27 Sodium Chloride 0.9% [Saline Flush] 10 ml FLUSH ASDIRECTED PRN Saline Lock Insert [OM.PC] Routine
[2017-02-27 10:14] VITALS: BP 115/74
== END 2017-02-27 10:19 | disposition home or self-care (01) ==
LOC: JP.ED 07:38
DX: Z51.0 Encounter for antineoplastic radiation therapy (principal); R11.0 Nausea; R10.9 Unspecified abdominal pain; T66.XXXA Radiation sickness, unspecified, initial encounter; C61 Malignant neoplasm of prostate; I25.10 Atherosclerotic heart disease of native coronary artery without angina pectoris; I10 Essential (primary) hypertension; I25.2 Old myocardial infarction; E78.00 Pure hypercholesterolemia, unspecified; J44.9 Chronic obstructive pulmonary disease, unspecified; M19.90 Unspecified osteoarthritis, unspecified site; F41.0 Panic disorder [episodic paroxysmal anxiety]; F32.9 Major depressive disorder, single episode, unspecified; E11.9 Type 2 diabetes mellitus without complications; E66.9 Obesity, unspecified; Z68.42 Body mass index [BMI] 45.0-49.9, adult; Z95.5 Presence of coronary angioplasty implant and graft; Z90.49 Acquired absence of other specified parts of digestive tract; Z87.891 Personal history of nicotine dependence; Z79.82 Long term (current) use of aspirin; Z79.02 Long term (current) use of antithrombotics/antiplatelets; Z79.4 Long term (current) use of insulin; Z79.899 Other long term (current) drug therapy; Y84.2 Radiological procedure and radiotherapy as the cause of abnormal reaction of the patient, or of later complication, without mention of misadventure at the time of the procedure
CPT/HCPCS: 36415; 80053; 81001; 82150; 83690; 85025; 96374; 99284; A9270; J2405; J7050

== ENCOUNTER 2020-10-13 20:05 | Emergency (ER) | payer MEDICAID ==
[2020-10-13 20:21] VITALS: BP 147/66; PULSE 73
--- NOTE | 2020-10-13 20:23 | EDM.PDOC ---
ED HPI GENERAL MEDICAL PROBLEM - General Chief Complaint: Abdominal Pain Stated Complaint: MEDICAL [facility] [place] Time Seen by Provider: 10/13/20 20:07 Source of Information: Reports: Patient, Old Records History Limitations: Reports: No Limitations - History of Present Illness INITIAL COMMENTS - FREE TEXT/NARRATIVE: Anderson is a 65-year-old male presenting to the ED via [facility] from the [facility] in [facility] complaining of right lower quadrant abdominal pain. Patient was at the [facility] sitting on his electric scooter when he went to transition over to the couch in the lobby. Apparently he tripped on the carpet and fell and was on the ground for some time before somebody in the [facility] noticed and assisted him. He is complaining of right lower quadrant abdominal pain. He reports that he recently had a CT of the abdomen and pelvis demonstrating a new renal mass that they suspect is cancer. It is unclear which side this was involved with, however, I suspect it is his right. Patient does have a history for chronic back pain for which he takes lorazepam and oxycodone daily. He also has a history for coronary artery disease, hypertension, hyperlipidemia, diabetes, chronic pancreatic insufficiency, prostate cancer, anxiety and depression. He denies any nausea or vomiting. He has had no diarrhea. He does appear to be a little slow with his answers, however, nursing, who has known the patient for years, reports that this is his baseline. In further discussion with the patient, it appears that he did not want to be brought in by EMS but his family insisted that he be brought in and assessed. The patient denies any new symptoms from his baseline. The right sided abdominal pain is likely due to his renal mass which she is currently being treated for with Percocet. He states that the fall occurred today because he was unsteady on his feet. He is quite sleepy which may be due to the benzodiazepine use. His brother apparently from renal cell carcinoma. Right Lower Abdomen Pain Score (Numeric/FACES): 7 - Related Data Allergies Allergy/AdvReac Type Severity Reaction Status Date / Time No Known Allergies Allergy Verified 10/13/20 20:18 Home Meds: Home Meds Albuterol [Ventolin HFA] 1 - 2 puff INH ASDIRECTED PRN 09/23/14 [History] Insulin Aspart [NovoLOG] 10 - 30 unit SQ TID 09/23/14 [History] Insulin Detemir [Levemir] 60 units SQ BID 09/23/14 [History] Sertraline HCl [Zoloft] 200 mg PO DAILY 09/23/14 [History] Tiotropium [Spiriva HandiHaler] 1 tab INH DAILY 09/23/14 [History] Aspirin [Low Dose Aspirin EC] 81 mg PO DAILY 01/11/15 [History] LORazepam [Ativan] 1 mg PO TID PRN 01/11/15 [History] atorvaSTATin [Lipitor] 80 mg PO BEDTIME 01/11/15 [History] Furosemide 20 mg PO DAILY 04/24/16 [History] Tamsulosin [Flomax] 0.8 mg PO DAILY 04/24/16 [History] Acetaminophen/HYDROcodone [Clive 325-7.5 MG] 1 tab PO Q6H PRN 10/13/20 [History] Acetaminophen/oxyCODONE [Percocet 325-5 MG] 1 tab PO Q6H PRN 10/13/20 [History] Albuterol [Proventil Neb Soln] 2.5 mg INH Q4H PRN 10/13/20 [History] Ammonium Lactate [Lac-Hydrin 12% Crm] 1 dose TOP BID PRN 10/13/20 [History] Amylase/Lipase/Protease [Ronnie DR 24,000 Unit] 2 cap PO TID 10/13/20 [History] Budesonide [Pulmicort] 0.5 mg IH BID 10/13/20 [History] Famotidine [Pepcid] 20 mg PO BID PRN 10/13/20 [History] Formoterol Fumarate [Perforomist] 20 mcg IH BID 10/13/20 [History] Metoprolol Succinate [Toprol XL] 12.5 mg PO DAILY 10/13/20 [History] Oxybutynin Chloride [Ditropan Xl] 10 mg PO DAILY 10/13/20 [History] hydrOXYzine pamoate [Vistaril] 50 mg PO Q8H PRN 10/13/20 [History] tiZANidine HCl [Zanaflex] 0.5 - 2 tab PO DAILY PRN 10/13/20 [History] traZODone 1 - 4 tab PO DAILY 10/13/20 [History] Past Medical History HEENT History: Reports: Hard of Hearing Other HEENT History: also C/O neck pain Cardiovascular History: Reports: CAD, Heart Murmur, High Cholesterol, Hypertension, [place], Other (See Below) Other Cardiovascular History: stents placed Respiratory History: Reports: COPD, Pneumonia, Recurrent, SOB, Other (See Below) Other Respiratory History: emphysema, sob with exertionm Pneumonia aprox 4 months ago Gastrointestinal History: Reports: Chronic Diarrhea, PUD Other Gastrointestinal History: Fatty Liver Genitourinary History: Reports: Prostate Disorder, Other (See Below) Other Genitourinary History: prostate cancer. nodule or cyst/tumor found on right kidney december 2016 Musculoskeletal History: Reports: Back Pain, Chronic, Osteoarthritis Neurological History: Reports: Other (See Below) Other Neuro History: [place] palsy Psychiatric History: Reports: Anxiety, Depression, Panic Attack Other Psychiatric History: Insomnia Endocrine/Metabolic History: Reports: Diabetes, Type II, IDDM, Obesity/BMI 30+ Oncologic (Cancer) History: Reports: Prostate - Infectious Disease History Infectious Disease History: Reports: Chicken Pox Other Infectious Disease History: unknown to patient - Past Surgical History Cardiovascular Surgical History: Reports: Coronary Artery Stent GI Surgical History: Reports: Cholecystectomy Social & Family History - Family History Family Medical History: Unobtainable Cardiac: Reports: High Cholesterol, Hypertension, Other (See Below) Other Cardiac Family History: Heart Disease Respiratory: Reports: COPD Neurological: Reports: CVA Psychiatric: Reports: Depression Endocrine/Metabolic: Reports: Diabetes, type II Oncologic: Reports: Pancreatic, Renal - Caffeine Use Caffeine Use: Reports: Coffee, Soda ED ROS GENERAL - Review of Systems Review Of Systems: See Below Constitutional: Reports: No Symptoms HEENT: Reports: No Symptoms Respiratory: Reports: No Symptoms Cardiovascular: Reports: No Symptoms Endocrine: Reports: No Symptoms GI/Abdominal: Reports: Abdominal Pain (Right flank and fupper quadrant) : Reports: No Symptoms Musculoskeletal: Reports: Back Pain (Chronic) Skin: Reports: No Symptoms Neurological: Reports: Numbness (Due to peripheral neuropathy of diabetes), Difficulty Walking (Chronic, due to deconditioning and diabetes.) Psychiatric: Reports: No Symptoms Hematologic/Lymphatic: Reports: No Symptoms Immunologic: Reports: No Symptoms ED EXAM, GENERAL - Physical Exam Exam: See Below Exam Limited By: No Limitations General Appearance: Alert, Anxious, Mild Distress, Obese (Morbid obesity) Eye Exam: Bilateral Eye: EOMI, PERRL Throat/Mouth: Normal Inspection, Normal Oropharynx, Normal Voice, No Airway Compromise Head: Atraumatic, Normocephalic Neck: Normal Inspection, Supple Respiratory/Chest: No Respiratory Distress, No Accessory Muscle Use, Wheezing (Pronounced expiratory wheezes with prolonged expiratory phase). No: Accessory Muscle Use, Retractions Cardiovascular: Normal Peripheral Pulses, Regular Rate, Rhythm, No Murmur Peripheral Pulses: 2+: Radial (L), Radial (R), Posterior Tibial (L), Posterior Tibial (R) GI/Abdominal: Normal Bowel Sounds, Soft, Tender (Mild tenderness in the right upper quadrant. Negative Mclaughlin sign.), Other ([place] and abdomen). No: Guarding, Rebound Back Exam: Decreased Range of Motion (Chronic back pain), Muscle Spasm (Mild). No: Paraspinal Tenderness, Vertebral Tenderness Extremities: Normal Inspection, Non-Tender Neurological: Alert, Oriented, Normal Cognition, Sensory/Motor Deficit (Peripheral neuropathy of diabetes in the lower extremities) Psychiatric: Anxious, Depressed Mood Skin Exam: Warm, Dry Lymphatic: No Adenopathy Course - Vital Signs Last Recorded V/S: Last Vital Signs Temp 37.2 C 10/13/20 20:19 Pulse 73 10/13/20 20:19 Resp 16 10/13/20 20:19 BP 147/66 H 10/13/20 20:19 Pulse Ox 96 10/13/20 20:19 - Orders/Labs/Meds Labs: Laboratory Tests 10/13/20 10/13/20 10/13/20 Range/Units 20:20 20:20 20:20 WBC 11.3 H (4.5-11.0) K/uL RBC 4.59 (4.30-5.90) M/uL Hgb 11.8 L (12.0-15.0) g/dL Hct 35.4 L (40.0-54.0) % MCV 77 L (80-98) fL MCH 26 L (27-31) pg MCHC 33 (32-36) % Plt Count 253 (150-400) K/uL Neut % (Auto) 69 H (36-66) % Lymph % (Auto) 19 L (24-44) % [place] % (Auto) 9 H (2-6) % Eos % (Auto) 3 (2-4) % Baso % (Auto) 0 (0-1) % PT 11.4 (9.5-12.0) sec INR 1.05 (0.80-1.20) APTT 30.4 (27.0-36.0) sec Sodium 135 L (140-148) mmol/L Potassium 4.1 (3.6-5.2) mmol/L Chloride 102 (100-108) mmol/L Carbon Dioxide 22 (21-32) mmol/L Anion Gap 15.1 H (5.0-14.0) mmol/L BUN 21 H (7-18) mg/dL Creatinine 1.8 H D (0.8-1.3) mg/dL Est Cr Clr Drug Dosing 41.68 mL/min Estimated GFR (MDRD) 38 L (>60) Glucose 126 H (74-106) mg/dL Calcium 8.7 (8.5-10.1) mg/dL Total Bilirubin 0.8 D (0.2-1.0) mg/dL AST 35 (15-37) U/L ALT 26 (12-78) U/L Alkaline Phosphatase 270 H D (46-116) U/L Total Protein 7.6 (6.4-8.2) g/dL Albumin 3.4 (3.4-5.0) g/dL Globulin 4.2 H (2.3-3.5) g/dL Albumin/Globulin Ratio 0.8 L (1.2-2.2) Urine Color (YELLOW) Urine Appearance (CLEAR) Urine pH (5.0-8.0) Ur Specific [place] (1.008-1.030) Urine Protein (NEGATIVE) mg/dL Urine Glucose (UA) (NEGATIVE) mg/dL Urine Ketones (NEGATIVE) mg/dL Urine Occult Blood (NEGATIVE) Urine Nitrite (NEGATIVE) Urine Bilirubin (NEGATIVE) Urine Urobilinogen (0.2-1.0) EU/dL Ur Leukocyte Esterase (NEGATIVE) Urine RBC (0-5) Urine WBC (0-5) Ur Epithelial Cells Amorphous Sediment Urine Bacteria Urine Mucus Ethyl Alcohol mg/dL 10/13/20 10/13/20 Range/Units 20:20 21:19 WBC (4.5-11.0) K/uL RBC (4.30-5.90) M/uL Hgb (12.0-15.0) g/dL Hct (40.0-54.0) % MCV (80-98) fL MCH (27-31) pg MCHC (32-36) % Plt Count (150-400) K/uL Neut % (Auto) (36-66) % Lymph % (Auto) (24-44) % [place] % (Auto) (2-6) % Eos % (Auto) (2-4) % Baso % (Auto) (0-1) % PT (9.5-12.0) sec INR (0.80-1.20) APTT (27.0-36.0) sec Sodium (140-148) mmol/L Potassium (3.6-5.2) mmol/L Chloride (100-108) mmol/L Carbon Dioxide (21-32) mmol/L Anion Gap (5.0-14.0) mmol/L BUN (7-18) mg/dL Creatinine (0.8-1.3) mg/dL Est Cr Clr Drug Dosing mL/min Estimated GFR (MDRD) (>60) Glucose (74-106) mg/dL Calcium (8.5-10.1) mg/dL Total Bilirubin (0.2-1.0) mg/dL AST (15-37) U/L ALT (12-78) U/L Alkaline Phosphatase (46-116) U/L Total Protein (6.4-8.2) g/dL Albumin (3.4-5.0) g/dL Globulin (2.3-3.5) g/dL Albumin/Globulin Ratio (1.2-2.2) Urine Color [place] A (YELLOW) Urine Appearance Cloudy A (CLEAR) Urine pH 6.0 (5.0-8.0) Ur Specific [place] 1.020 (1.008-1.030) Urine Protein 30 H (NEGATIVE) mg/dL Urine Glucose (UA) Negative (NEGATIVE) mg/dL Urine Ketones Negative (NEGATIVE) mg/dL Urine Occult Blood Large H (NEGATIVE) Urine Nitrite Negative (NEGATIVE) Urine Bilirubin Negative (NEGATIVE) Urine Urobilinogen 0.2 (0.2-1.0) EU/dL Ur Leukocyte Esterase Trace H (NEGATIVE) Urine RBC 50-75 H (0-5) Urine WBC 0-5 (0-5) Ur Epithelial Cells Few Amorphous Sediment Few Urine Bacteria Moderate Urine Mucus Not seen Ethyl Alcohol < 3 mg/dL - Re-Assessments/Exams Free Text/Narrative Re-Assessment/Exam: 10/13/20 21:04 viewed the patient's labs showing a mild leukocytosis at 11.4 with relatively normal differential. The patient has elevation of his creatinine 1.8 with a creatinine clearance of 38 dropping his kidney function to chronic kidney failure, stage IIIb. He has yet to undergo work-up of this right renal mass which is the area where he is having pain. This is being managed through his primary care provider at [facility]. The patient is awaiting a surgical evaluation at [facility]. What is concerning is the patient's brother from renal cell carcinoma and the patient has had overall courses of recurrent prostate cancer. I have not found anything else that is remarkable in his work-up today. Certainly the patient and family are concerned about this recently diagnosed right renal mass, however, I do not see any way to facilitate his work-up of this through the ER. Moreover my bigger concern is the patient's limited mobility and whether he is safe at home. His fall occurred today because his legs essentially gave out causing him to fall to the carpet. [place] however, he has no assistive devices at home including a cane or walker. Worsening the situation is the and is being managed for pain with Percocet and lorazepam which can both affect his ability to ambulate safely. 10/13/20 21:33 urinalysis was reviewed and shows 50-75 RBCs and trace leukocyte Estrace but no evidence for acute pyuria. Systemically the patient is suitable for discharge home. Concerns remain considering the patient's ability to ambulate, however, he does have additional help at home to aid him. Indications return to ED were discussed and I wish the patient success in his pursuit of treatment for his renal mass. Departure - Departure Time of Disposition: 21:34 Disposition: Home, Self-Care 01 Clinical Impression: Right upper quadrant abdominal pain, Right renal mass, Generalized weakness - Discharge Information Instructions: Weakness, [id number], Abdominal Pain, Adult, [id number] Referrals: PCP,None [Primary Care Provider] - Forms: ED Department Discharge Care Plan Goals: Good luck with the work-up and treatment of your right renal mass. Continue your medical management as before. Sepsis Event Note (ED) - Focused Exam Vital Signs: Vital Signs Temp Pulse Resp BP Pulse Ox 10/13/20 20:19 37.2 C 73 16 147/66 H 96 - Problem List & Annotations (1) Generalized weakness SNOMED Code(s): 66158483 Code(s): R53.1 - WEAKNESS Status: Chronic Priority: Medium Current Visit: Yes (2) Right renal mass SNOMED Code(s): 163097410 Code(s): N28.89 - OTHER SPECIFIED DISORDERS OF KIDNEY AND URETER Status: Acute Priority: High Current Visit: Yes (3) Right upper quadrant abdominal pain SNOMED Code(s): 459542687 Code(s): R10.11 - RIGHT UPPER QUADRANT PAIN Status: Acute Priority: High Current Visit: Yes - Problem List Review Problem List Initiated/Reviewed/Updated: Yes
== END 2020-10-13 22:00 | disposition home or self-care (01) ==
LOC: JP.ED 20:05
DX: N28.89 Other specified disorders of kidney and ureter (principal); R53.1 Weakness; I25.10 Atherosclerotic heart disease of native coronary artery without angina pectoris; E78.00 Pure hypercholesterolemia, unspecified; I10 Essential (primary) hypertension; I25.2 Old myocardial infarction; J43.9 Emphysema, unspecified; E11.9 Type 2 diabetes mellitus without complications; E66.9 Obesity, unspecified; Z90.49 Acquired absence of other specified parts of digestive tract; Z79.4 Long term (current) use of insulin; Z79.899 Other long term (current) drug therapy; Z68.37 Body mass index [BMI] 37.0-37.9, adult
CPT/HCPCS: 36415; 80053; 80307; 81001; 85025; 85610; 85730; 99283; 99284

== ENCOUNTER 2020-10-15 02:11 | Emergency (ER) | payer MEDICAID ==
[2020-10-15 02:31] VITALS: BP 121/61; PULSE 74
--- NOTE | 2020-10-15 02:31 | EDM.PDOC ---
ED HPI GENERAL MEDICAL PROBLEM - General Chief Complaint: Abdominal Pain Stated Complaint: KIDNEYS Time Seen by Provider: 10/15/20 02:21 Source of Information: Reports: Patient, Old Records History Limitations: Reports: No Limitations - History of Present Illness INITIAL COMMENTS - FREE TEXT/NARRATIVE: Is a 65-year-old male who is known to me from an evaluation done yesterday after [place]. He was seen and evaluated and is quite nervous about his recently diagnosed right renal mass. His brother from renal carcinoma. He is awaiting evaluation at [facility], but they have not contacted them to schedule a surgical evaluation. He is very nervous about this. He reports that he was unable to void his urine since around 1230 this afternoon (14 hours ago), however, he was incontinent of urine when he got out of his car outside of the ER having urinary incontinence and hematuria on his slacks. It have a clot in his underwear. He denies any fever or chills. In addition to the right renal mass, the patient does have a history of recurrent prostate cancer. Right Lower Abdomen Pain Score (Numeric/FACES): 7 - Related Data Allergies Allergy/AdvReac Type Severity Reaction Status Date / Time No Known Allergies Allergy Verified 10/15/20 02:31 Home Meds: Home Meds Albuterol [Ventolin HFA] 1 - 2 puff INH ASDIRECTED PRN 09/23/14 [History] Insulin Aspart [NovoLOG] 10 - 30 unit SQ TID 09/23/14 [History] Insulin Detemir [Levemir] 60 units SQ BID 09/23/14 [History] Sertraline HCl [Zoloft] 200 mg PO DAILY 09/23/14 [History] Tiotropium [Spiriva HandiHaler] 1 tab INH DAILY 09/23/14 [History] Aspirin [Low Dose Aspirin EC] 81 mg PO DAILY 01/11/15 [History] LORazepam [Ativan] 1 mg PO TID PRN 01/11/15 [History] atorvaSTATin [Lipitor] 80 mg PO BEDTIME 01/11/15 [History] Furosemide 20 mg PO DAILY 04/24/16 [History] Tamsulosin [Flomax] 0.8 mg PO DAILY 04/24/16 [History] Acetaminophen/HYDROcodone [[place] 325-7.5 MG] 1 tab PO Q6H PRN 10/13/20 [History] Acetaminophen/oxyCODONE [Percocet 325-5 MG] 1 tab PO Q6H PRN 10/13/20 [History] Albuterol [Proventil Neb Soln] 2.5 mg INH Q4H PRN 10/13/20 [History] Ammonium Lactate [Lac-Hydrin 12% Crm] 1 dose TOP BID PRN 10/13/20 [History] Amylase/Lipase/Protease [Ronnie DR 24,000 Unit] 2 cap PO TID 10/13/20 [History] Budesonide [Pulmicort] 0.5 mg IH BID 10/13/20 [History] Famotidine [Pepcid] 20 mg PO BID PRN 10/13/20 [History] Formoterol Fumarate [Perforomist] 20 mcg IH BID 10/13/20 [History] Metoprolol Succinate [Toprol XL] 12.5 mg PO DAILY 10/13/20 [History] Oxybutynin Chloride [Ditropan Xl] 10 mg PO DAILY 10/13/20 [History] hydrOXYzine pamoate [Vistaril] 50 mg PO Q8H PRN 10/13/20 [History] tiZANidine HCl [Zanaflex] 0.5 - 2 tab PO DAILY PRN 10/13/20 [History] traZODone 1 - 4 tab PO DAILY 10/13/20 [History] Past Medical History HEENT History: Reports: Hard of Hearing Other HEENT History: also C/O neck pain Cardiovascular History: Reports: Angina, CAD, Heart Murmur, High Cholesterol, Hypertension, [place], Other (See Below) Other Cardiovascular History: stents placed Respiratory History: Reports: Bronchitis, Recurrent, COPD, Pneumonia, Recurrent, SOB, Other (See Below) Other Respiratory History: emphysema, sob with exertionm Pneumonia aprox 4 months ago Gastrointestinal History: Reports: PUD Other Gastrointestinal History: Fatty Liver Genitourinary History: Reports: Prostate Disorder, Other (See Below) Other Genitourinary History: prostate cancer. nodule or cyst/tumor found on right kidney december 2016 Musculoskeletal History: Reports: Back Pain, Chronic, Osteoarthritis Neurological History: Reports: Other (See Below) Other Neuro History: [place] palsy Psychiatric History: Reports: Anxiety, Depression, Panic Attack Other Psychiatric History: Insomnia Endocrine/Metabolic History: Reports: Diabetes, Type II, IDDM, Obesity/BMI 30+ Oncologic (Cancer) History: Reports: Prostate - Infectious Disease History Infectious Disease History: Reports: Chicken Pox Other Infectious Disease History: unknown to patient - Past Surgical History Cardiovascular Surgical History: Reports: Coronary Artery Stent GI Surgical History: Reports: Cholecystectomy Other Male Surgeries/Procedures: recurrent prostate CA Oncologic Surgical History: Reports: Other (See Below) Other Oncologic Surgeries/Procedures: radiated prostate cancer, states it was gone, but now back Social & Family History - Family History Family Medical History: Unobtainable Cardiac: Reports: High Cholesterol, Hypertension, Other (See Below) Other Cardiac Family History: Heart Disease Respiratory: Reports: COPD Neurological: Reports: CVA Psychiatric: Reports: Depression Endocrine/Metabolic: Reports: Diabetes, type II Oncologic: Reports: Pancreatic, Renal - Caffeine Use Caffeine Use: Reports: Soda, Tea ED ROS GENERAL - Review of Systems Review Of Systems: See Below Constitutional: Reports: No Symptoms HEENT: Reports: No Symptoms Respiratory: Reports: No Symptoms Cardiovascular: Reports: No Symptoms Endocrine: Reports: No Symptoms GI/Abdominal: Reports: Abdominal Pain (Ongoing right upper quadrant abdominal pain), Other (Recently diagnosed right renal mass) : Reports: Hematuria, Incontinence (Patient became incontinent of urine while getting out of his car outside the emergency room. He had not previously voided for 14 hours.), Urinary Retention (Patient was having urinary retention from 12:30 PM to 2:00 AM. On arrival to the ED, the patient was incontinent of urine) Musculoskeletal: Reports: No Symptoms Skin: Reports: No Symptoms Neurological: Reports: No Symptoms Psychiatric: Reports: Anxiety (Patient is very anxious about his recently diagnosed right renal mass. The patient's brother from renal cell carcinoma.) Hematologic/Lymphatic: Reports: No Symptoms Immunologic: Reports: No Symptoms ED EXAM, RENAL/ - Physical Exam Exam: See Below Exam Limited By: No Limitations General Appearance: Alert, Anxious, Obese Throat/Mouth: Normal Inspection, Normal Oropharynx, Normal Voice, No Airway Compromise Head: Atraumatic, Normocephalic Neck: Normal Inspection Respiratory/Chest: No Respiratory Distress, Lungs Clear, Normal Breath Sounds Cardiovascular: Normal Peripheral Pulses, Regular Rate, Rhythm, No Edema, No Murmur GI/Abdominal: Normal Bowel Sounds, Guarding (Right upper quadrant), Tender (Right upper quadrant tenderness to palpation. Negative Mclaughlin sign.) Extremities: Normal Inspection, Normal Range of Motion Neurological: Alert, Oriented, Normal Cognition, No Motor/Sensory Deficits Psychiatric: Anxious Skin Exam: Warm, Dry, Intact, Normal Color Course - Vital Signs Last Recorded V/S: Last Vital Signs Temp 36 C L 10/15/20 02:30 Pulse 74 10/15/20 02:30 Resp 16 10/15/20 02:30 BP 121/61 10/15/20 02:30 Pulse Ox 97 10/15/20 02:30 - Orders/Labs/Meds Labs: Laboratory Tests 10/15/20 10/15/20 10/15/20 Range/Units 02:42 02:42 03:10 WBC 11.9 H (4.5-11.0) K/uL RBC 4.66 (4.30-5.90) M/uL Hgb 12.1 (12.0-15.0) g/dL Hct 36.1 L (40.0-54.0) % MCV 78 L (80-98) fL MCH 26 L (27-31) pg MCHC 34 (32-36) % Plt Count 271 (150-400) K/uL Neut % (Auto) 75 H (36-66) % Lymph % (Auto) 15 L (24-44) % [place] % (Auto) 7 H (2-6) % Eos % (Auto) 3 (2-4) % Baso % (Auto) 0 (0-1) % Sodium 134 L (140-148) mmol/L Potassium 3.7 (3.6-5.2) mmol/L Chloride 99 L (100-108) mmol/L Carbon Dioxide 23 (21-32) mmol/L Anion Gap 15.7 H (5.0-14.0) mmol/L BUN 20 H (7-18) mg/dL Creatinine 1.8 H (0.8-1.3) mg/dL Est Cr Clr Drug Dosing 41.68 mL/min Estimated GFR (MDRD) 38 L (>60) Glucose 156 H (74-106) mg/dL Calcium 8.5 (8.5-10.1) mg/dL Total Bilirubin 0.5 (0.2-1.0) mg/dL AST 27 (15-37) U/L ALT 21 (12-78) U/L Alkaline Phosphatase 235 H (46-116) U/L Total Protein 7.6 (6.4-8.2) g/dL Albumin 3.4 (3.4-5.0) g/dL Globulin 4.2 H (2.3-3.5) g/dL Albumin/Globulin Ratio 0.8 L (1.2-2.2) Urine Color Red A (YELLOW) Urine Appearance Cloudy A (CLEAR) Urine pH 6.0 (5.0-8.0) Ur Specific [place] 1.010 (1.008-1.030) Urine Protein >=300 H (NEGATIVE) mg/dL Urine Glucose (UA) Normal (NEGATIVE) mg/dL Urine Ketones Negative (NEGATIVE) mg/dL Urine Occult Blood Large (NEGATIVE) Urine Nitrite Unable to report (NEGATIVE) Urine Bilirubin Unable to report (NEGATIVE) Urine Urobilinogen 0.2 (0.2-1.0) EU/dL Ur Leukocyte Esterase Moderate (NEGATIVE) Urine RBC >100 H (0-5) Urine WBC 10-20 H (0-5) Ur Epithelial Cells Few Amorphous Sediment Not seen Urine Bacteria Moderate Urine Mucus Not seen Meds: Medications Discontinued Medications Generic Name Dose Route Start Last Admin Trade Name Freq PRN Reason Stop Dose Admin Lidocaine HCl 10 ml 10/15/20 02:53 10/15/20 03:10 Lidocaine 2% Jelly 10 Ml Urojet MUCMEM 10/15/20 02:54 10 ml ONETIME ONE Administration - Re-Assessments/Exams Free Text/Narrative Re-Assessment/Exam: 10/15/20 03:16 the patient was having dribbling urinary incontinence so we placed a Diallo catheter which had over a liter of urine output. There are clots in the urine and it was misha hematuria. Urinalysis was obtained showing occult blood and moderate leukocyte Estrace and greater than 100 RBCs with 20-50 WBCs. 10/15/20 03:55 the primary concern is the patient having urinary retention with more than a liter of urine in his bladder. We will leave the Diallo catheter in place but the patient will need to follow-up as soon as possible with urology at [facility]. We will put the patient on cephalexin for possible UTI while the catheter is in., Believe he is suitable for discharge home with follow-up at [facility]. The number has been given to the patient to make contact and arrange the appointment. Departure - Departure Time of Disposition: 03:57 Disposition: Home, Self-Care 01 Clinical Impression: Acute urinary retention, Right renal mass, History of prostate cancer Hematuria Qualifiers: Hematuria type: unspecified type Qualified Code(s): R31.9 - Hematuria, unspecified - Discharge Information Instructions: Acute Urinary Retention, Male, [id number], Renal Mass, Hematuria, Adult Referrals: PCP,None [Primary Care Provider] - Forms: ED Department Discharge Care Plan Goals: Call [facility] urology department as soon as possible to arrange for follow- up. Their number is . The nurse will show you how to maintain the Diallo catheter so that your urine can continue to flow without obstruction. I have also given you a prescription for the [employer] machine's for an antibiotic for urinary tract infection. Sepsis Event Note (ED) - Focused Exam Vital Signs: Vital Signs Temp Pulse Resp BP Pulse Ox 10/15/20 02:30 36 C L 74 16 121/61 97 - Problem List & Annotations (1) Right renal mass SNOMED Code(s): 424662284 Code(s): N28.89 - OTHER SPECIFIED DISORDERS OF KIDNEY AND URETER Status: Acute Priority: High Current Visit: Yes (2) Acute urinary retention SNOMED Code(s): 926051057 Code(s): R33.8 - OTHER RETENTION OF URINE Status: Acute Priority: High Current Visit: Yes (3) Hematuria SNOMED Code(s): 30912564 Code(s): R31.9 - HEMATURIA, UNSPECIFIED Status: Acute Priority: High Current Visit: Yes Qualifiers: Hematuria type: unspecified type Qualified Code(s): R31.9 - Hematuria, unspecified (4) History of prostate cancer SNOMED Code(s): 164458093 Code(s): Z85.46 - PERSONAL HISTORY OF MALIGNANT NEOPLASM OF PROSTATE Status: Chronic Priority: Medium Current Visit: Yes - Problem List Review Problem List Initiated/Reviewed/Updated: Yes
[2020-10-15] MEDS ORDERED: Lidocaine 2% Jelly 10 ML Urojet MUCMEM ONE (02:53)
== END 2020-10-15 04:53 | disposition home or self-care (01) ==
LOC: JP.ED 02:11
DX: R33.9 Retention of urine, unspecified (principal); R31.9 Hematuria, unspecified; N28.89 Other specified disorders of kidney and ureter; I25.10 Atherosclerotic heart disease of native coronary artery without angina pectoris; E78.00 Pure hypercholesterolemia, unspecified; I10 Essential (primary) hypertension; I25.2 Old myocardial infarction; J43.9 Emphysema, unspecified; M19.90 Unspecified osteoarthritis, unspecified site; E11.9 Type 2 diabetes mellitus without complications; E66.9 Obesity, unspecified; Z68.38 Body mass index [BMI] 38.0-38.9, adult; Z85.46 Personal history of malignant neoplasm of prostate; Z79.4 Long term (current) use of insulin; Z79.82 Long term (current) use of aspirin; Z79.899 Other long term (current) drug therapy
CPT/HCPCS: 36415; 51702; 80053; 81001; 85025; 99283; 99284-25

== ENCOUNTER 2020-10-15 18:59 | Emergency (ER) | payer MEDICAID ==
[2020-10-15 19:07] VITALS: BP 138/93; PULSE 78
--- NOTE | 2020-10-15 19:08 | EDM.PDOC ---
ED HPI GENERAL MEDICAL PROBLEM - General Chief Complaint: Abdominal Pain Stated Complaint: CATHETER TROUBLE Time Seen by Provider: 10/15/20 19:00 Source of Information: Reports: Patient, Old Records History Limitations: Reports: No Limitations - History of Present Illness INITIAL COMMENTS - FREE TEXT/NARRATIVE: Anderson is a 65-year-old male returning with complaint of plugged urinary catheter. The patient was seen by me yesterday for urinary retention and was having misha hematuria with clots. We did instruct him on measures to clear the tube, however, he has been unable to pass clot and is now passing urine around the Diallo catheter. Patient was recently diagnosed with a right renal mass that has yet to be worked up. We did start Anderson on cephalexin for possible UTI y esterday. With repeated urinary retention and gross hematuria, I believe the patient requires urologic intervention. The Diallo catheter was replaced with a urinary irrigation catheter. At this point I am going to discuss transfer the patient to [facility] for urologic evaluation. - Related Data Allergies Allergy/AdvReac Type Severity Reaction Status Date / Time No Known Allergies Allergy Verified 10/15/20 02:31 Home Meds: Home Meds Albuterol [Ventolin HFA] 1 - 2 puff INH ASDIRECTED PRN 09/23/14 [History] Insulin Aspart [NovoLOG] 10 - 30 unit SQ TID 09/23/14 [History] Insulin Detemir [Levemir] 60 units SQ BID 09/23/14 [History] Sertraline HCl [Zoloft] 200 mg PO DAILY 09/23/14 [History] Tiotropium [Spiriva HandiHaler] 1 tab INH DAILY 09/23/14 [History] Aspirin [Low Dose Aspirin EC] 81 mg PO DAILY 01/11/15 [History] LORazepam [Ativan] 1 mg PO TID PRN 01/11/15 [History] atorvaSTATin [Lipitor] 80 mg PO BEDTIME 01/11/15 [History] Furosemide 20 mg PO DAILY 04/24/16 [History] Tamsulosin [Flomax] 0.8 mg PO DAILY 04/24/16 [History] Acetaminophen/HYDROcodone [[place] 325-7.5 MG] 1 tab PO Q6H PRN 10/13/20 [History] Acetaminophen/oxyCODONE [Percocet 325-5 MG] 1 tab PO Q6H PRN 10/13/20 [History] Albuterol [Proventil Neb Soln] 2.5 mg INH Q4H PRN 10/13/20 [History] Ammonium Lactate [Lac-Hydrin 12% Crm] 1 dose TOP BID PRN 10/13/20 [History] Amylase/Lipase/Protease [Ronnie CALDERON 24,000 Unit] 2 cap PO TID 10/13/20 [History] Budesonide [Pulmicort] 0.5 mg IH BID 10/13/20 [History] Famotidine [Pepcid] 20 mg PO BID PRN 10/13/20 [History] Formoterol Fumarate [Perforomist] 20 mcg IH BID 10/13/20 [History] Metoprolol Succinate [Toprol XL] 12.5 mg PO DAILY 10/13/20 [History] Oxybutynin Chloride [Ditropan Xl] 10 mg PO DAILY 10/13/20 [History] hydrOXYzine pamoate [Vistaril] 50 mg PO Q8H PRN 10/13/20 [History] tiZANidine HCl [Zanaflex] 0.5 - 2 tab PO DAILY PRN 10/13/20 [History] traZODone 1 - 4 tab PO DAILY 10/13/20 [History] Past Medical History HEENT History: Reports: Hard of Hearing Other HEENT History: also C/O neck pain Cardiovascular History: Reports: Angina, CAD, Heart Murmur, High Cholesterol, Hypertension, [place], Other (See Below) Other Cardiovascular History: stents placed Respiratory History: Reports: Bronchitis, Recurrent, COPD, Pneumonia, Recurrent, SOB, Other (See Below) Other Respiratory History: emphysema, sob with exertionm Pneumonia aprox 4 months ago Gastrointestinal History: Reports: PUD Other Gastrointestinal History: Fatty Liver Genitourinary History: Reports: Prostate Disorder, Other (See Below) Other Genitourinary History: prostate cancer. nodule or cyst/tumor found on right kidney december 2016 Musculoskeletal History: Reports: Back Pain, Chronic, Osteoarthritis Neurological History: Reports: Other (See Below) Other Neuro History: [place] palsy Psychiatric History: Reports: Anxiety, Depression, Panic Attack Other Psychiatric History: Insomnia Endocrine/Metabolic History: Reports: Diabetes, Type II, IDDM, Obesity/BMI 30+ Oncologic (Cancer) History: Reports: Prostate - Infectious Disease History Infectious Disease History: Reports: Chicken Pox Other Infectious Disease History: unknown to patient - Past Surgical History Cardiovascular Surgical History: Reports: Coronary Artery Stent GI Surgical History: Reports: Cholecystectomy Other Male Surgeries/Procedures: recurrent prostate CA Oncologic Surgical History: Reports: Other (See Below) Other Oncologic Surgeries/Procedures: radiated prostate cancer, states it was gone, but now back Social & Family History - Family History Family Medical History: Unobtainable Cardiac: Reports: High Cholesterol, Hypertension, Other (See Below) Other Cardiac Family History: Heart Disease Respiratory: Reports: COPD Neurological: Reports: CVA Psychiatric: Reports: Depression Endocrine/Metabolic: Reports: Diabetes, type II Oncologic: Reports: Pancreatic, Renal - Caffeine Use Caffeine Use: Reports: Coffee, Tea Caffeine Use Comment: No caffiene past 3 days ED ROS GENERAL - Review of Systems Review Of Systems: See Below Constitutional: Reports: No Symptoms HEENT: Reports: No Symptoms Respiratory: Reports: No Symptoms Cardiovascular: Reports: No Symptoms Endocrine: Reports: No Symptoms GI/Abdominal: Reports: Abdominal Pain (Ongoing right upper quadrant pain for the last several weeks) : Reports: Hematuria, Incontinence, Urinary Retention Musculoskeletal: Reports: No Symptoms Skin: Reports: No Symptoms Neurological: Reports: No Symptoms Psychiatric: Reports: Anxiety (Patient is very anxious about the recently discovered right renal mass. His brother from renal cell carcinoma.) Hematologic/Lymphatic: Reports: No Symptoms Immunologic: Reports: No Symptoms ED EXAM, RENAL/ - Physical Exam Exam: See Below Exam Limited By: No Limitations General Appearance: Alert, Anxious, Mild Distress Eye Exam: Bilateral Eye: EOMI, PERRL Head: Atraumatic, Normocephalic Neck: Normal Inspection Respiratory/Chest: No Respiratory Distress, Lungs Clear, Normal Breath Sounds Cardiovascular: Normal Peripheral Pulses, Regular Rate, Rhythm GI/Abdominal: Normal Bowel Sounds, Guarding (Right upper quadrant), Tender (Right upper quadrant and suprapubic region). No: Rigid, Rebound (Male) Exam: Other (There seems to be quite full and urine is coming out around the catheter. There appears to be clot in the catheter and significant hematuria in the bag.) Back Exam: Normal Inspection Extremities: Normal Inspection, Normal Range of Motion Neurological: Alert, Oriented, Normal Cognition, No Motor/Sensory Deficits Psychiatric: Normal Affect, Anxious Skin Exam: Warm, Dry, Intact, Normal Color Lymphatic: No Adenopathy Course - Vital Signs Last Recorded V/S: Last Vital Signs Temp 36.6 C 10/15/20 19:03 Pulse 78 10/15/20 19:03 Resp 16 10/15/20 19:03 BP 138/93 H 10/15/20 19:03 Pulse Ox 96 10/15/20 19:03 - Re-Assessments/Exams Free Text/Narrative Re-Assessment/Exam: 10/15/20 19:23 The catheter is to be obstructed with clot. We will replace the Diallo with a urinary irrigation catheter. At this time, I believe the patient needs intervention by urology. I am arranging for transfer of the patient to [facility] for urologic evaluation. I discussed the case with Dr. Lewis, hospitalist at [facility] to arrange for transfer of the patient there for further care. Departure - Departure Time of Disposition: 19:43 Disposition: DC/Tfer to [facility] 02 Clinical Impression: Urinary retention, Gross hematuria, Right renal mass, History of prostate cancer - Discharge Information Forms: ED Department Discharge Sepsis Event Note (ED) - Focused Exam Vital Signs: Vital Signs Temp Pulse Resp BP Pulse Ox 10/15/20 19:03 36.6 C 78 16 138/93 H 96 - Problem List & Annotations (1) Right upper quadrant abdominal pain SNOMED Code(s): 571262861 Code(s): R10.11 - RIGHT UPPER QUADRANT PAIN Status: Acute Priority: High Current Visit: No (2) Right renal mass SNOMED Code(s): 164392979 Code(s): N28.89 - OTHER SPECIFIED DISORDERS OF KIDNEY AND URETER Status: Acute Priority: High Current Visit: Yes (3) Acute urinary retention SNOMED Code(s): 256445062 Code(s): R33.8 - OTHER RETENTION OF URINE Status: Acute Priority: High Current Visit: No (4) Gross hematuria SNOMED Code(s): 904918254 Code(s): R31.0 - GROSS HEMATURIA Status: Acute Priority: High Current Visit: Yes (5) Urinary retention SNOMED Code(s): 888010046 Code(s): R33.9 - RETENTION OF URINE, UNSPECIFIED Status: Acute Priority: High Current Visit: Yes - Problem List Review Problem List Initiated/Reviewed/Updated: Yes
[2020-10-15] MEDS ORDERED: Lidocaine 2% Jelly 10 ML Urojet ONE (19:25)
[2020-10-15] MEDS ORDERED: Acetaminophen/oxyCODONE 325-5 MG Tab PO STA (20:15)
[2020-10-15] MEDS: Lidocaine 2% Jelly 10 ML Urojet MUCMEM ONE ×2 (20:21→20:51)
== END 2020-10-15 21:44 ==
LOC: JP.ED 18:59
DX: R33.9 Retention of urine, unspecified (principal); R31.0 Gross hematuria; N28.89 Other specified disorders of kidney and ureter; E11.9 Type 2 diabetes mellitus without complications; I25.10 Atherosclerotic heart disease of native coronary artery without angina pectoris; E78.00 Pure hypercholesterolemia, unspecified; I10 Essential (primary) hypertension; I25.2 Old myocardial infarction; J44.9 Chronic obstructive pulmonary disease, unspecified; E66.9 Obesity, unspecified; Z68.38 Body mass index [BMI] 38.0-38.9, adult; Z85.46 Personal history of malignant neoplasm of prostate; Z79.4 Long term (current) use of insulin; Z79.82 Long term (current) use of aspirin; Z79.899 Other long term (current) drug therapy
CPT/HCPCS: 99283; 99284; A9270-GY